=== PATIENT | female | born 1940 | race Caucasian/White ===

== ENCOUNTER 2020-09-28 00:26 | Outpatient (REF) | payer MEDICARE, MEDICAID, SELFPAY | END 2020-09-28 00:27 | disposition home or self-care (01) | LOC: HO.LHD 00:26 | PROVIDERS: Visit Provider Nurse Practitioner Family | DX: Z13.89 Encounter for screening for other disorder (principal) ==

== ENCOUNTER 2020-09-29 06:46 | Outpatient (REF) | payer MEDICARE, MEDICAID, SELFPAY ==
[2020-09-29 11:33] LABS: Alanine Aminotransferase 7 U/L (0-31); Albumin Level 3.9 g/dL (3.5-5.0); Alkaline Phosphatase 67 U/L (39-117); Anion Gap 15 (12-20); Aspartate Amino Transferase 14 U/L (5-31); Bilirubin Total 0.5 mg/dL (0.0-1.0); Blood Urea Nitrogen 17 mg/dL (9-16); Calcium 9.7 mg/dL (8.4-10.2); Carbon Dioxide 24 mmol/L (22-29); Chloride 108 mmol/L (96-108); Cholesterol 185 mg/dL; Estimated Glomerular Filt Rate > 60; Glucose Fasting 101 mg/dL (60-99); HDL Cholesterol 77 mg/dL; LDL Cholesterol Calculated 99 mg/dl; Potassium 5.1 mmol/L (3.3-5.1); Sodium 142 mmol/L (135-145); Total Protein 6.6 g/dL (6.5-8.0); Triglycerides 45 mg/dL
[2020-09-29 11:55] LABS: TSH reflex Free T4 0.72 uIU/mL (0.32-4.0)
== END 2020-09-29 06:47 | disposition home or self-care (01) ==
LOC: HO.LHD 06:46
PROVIDERS: Visit Provider Nurse Practitioner Family
DX: F41.9 Anxiety disorder, unspecified (principal)
CPT/HCPCS: 36415; 80053; 80061; 84443

== ENCOUNTER 2021-01-24 08:21 | Outpatient (REF) | payer MEDICARE, MEDICAID, SELFPAY ==
--- NOTE | ~2021-01-24 | XR_ITS ---
EXAMINATION: XR ANKLE, LEFT XR TIBIA FIBULAR, LEFT XR FEMUR, LEFT XR HIP, LEFT CLINICAL INFORMATION: Pain in left lower extremity. COMPARISON: None TECHNIQUE: Left ankle 3 views, left tibia and fibula 2 views, left femur 4 views and left hip 2 views. FINDINGS: LEFT ANKLE: There is diffuse osteopenia. No visible acute fracture, dislocation seen. The ankle mortise and subtalar joints are normal. There is a small calcaneal heel enthesophyte. LEFT TIBIA AND FIBULA: There is no visible acute fracture or bony abnormality. No bony erosive changes. No periosteal elevation. The soft tissues are normal. Visualized medial and lateral compartment joint space reduced but no fracture seen. LEFT FEMUR: There is no visible acute fracture or dislocation. The left hip joint space is reduced. No bony erosive changes. There is diffuse osteopenia. Mild hypertrophic changes along the left greater trochanter is noted. LEFT HIP: There is minimal loss of left hip joint space. No bony erosive changes. No loose bodies. No joint effusion. XR/XR ankle LT min 3V IMPRESSION: Mild diffuse osteopenia left ankle, left femur and tibia and fibula. No visible acute fracture, dislocation or subluxation seen. No bony erosive changes. 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 No fracture or dislocation seen in the left femur or the left tibia-fibula.
--- NOTE | ~2021-01-24 | XR_ITS ---
EXAMINATION: XR ANKLE, LEFT XR TIBIA FIBULAR, LEFT XR FEMUR, LEFT XR HIP, LEFT CLINICAL INFORMATION: Pain in left lower extremity. COMPARISON: None TECHNIQUE: Left ankle 3 views, left tibia and fibula 2 views, left femur 4 views and left hip 2 views. FINDINGS: LEFT ANKLE: There is diffuse osteopenia. No visible acute fracture, dislocation seen. The ankle mortise and subtalar joints are normal. There is a small calcaneal heel enthesophyte. LEFT TIBIA AND FIBULA: There is no visible acute fracture or bony abnormality. No bony erosive changes. No periosteal elevation. The soft tissues are normal. Visualized medial and lateral compartment joint space reduced but no fracture seen. LEFT FEMUR: There is no visible acute fracture or dislocation. The left hip joint space is reduced. No bony erosive changes. There is diffuse osteopenia. Mild hypertrophic changes along the left greater trochanter is noted. LEFT HIP: There is minimal loss of left hip joint space. No bony erosive changes. No loose bodies. No joint effusion. XR/XR tibia fibula LT 2V IMPRESSION: Mild diffuse osteopenia left ankle, left femur and tibia and fibula. No visible acute fracture, dislocation or subluxation seen. No bony erosive changes. 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 No fracture or dislocation seen in the left femur or the left tibia-fibula.
--- NOTE | ~2021-01-24 | XR_ITS ---
EXAMINATION: XR ANKLE, LEFT XR TIBIA FIBULAR, LEFT XR FEMUR, LEFT XR HIP, LEFT CLINICAL INFORMATION: Pain in left lower extremity. COMPARISON: None TECHNIQUE: Left ankle 3 views, left tibia and fibula 2 views, left femur 4 views and left hip 2 views. FINDINGS: LEFT ANKLE: There is diffuse osteopenia. No visible acute fracture, dislocation seen. The ankle mortise and subtalar joints are normal. There is a small calcaneal heel enthesophyte. LEFT TIBIA AND FIBULA: There is no visible acute fracture or bony abnormality. No bony erosive changes. No periosteal elevation. The soft tissues are normal. Visualized medial and lateral compartment joint space reduced but no fracture seen. LEFT FEMUR: There is no visible acute fracture or dislocation. The left hip joint space is reduced. No bony erosive changes. There is diffuse osteopenia. Mild hypertrophic changes along the left greater trochanter is noted. LEFT HIP: There is minimal loss of left hip joint space. No bony erosive changes. No loose bodies. No joint effusion. XR/XR hip LT min 2V IMPRESSION: Mild diffuse osteopenia left ankle, left femur and tibia and fibula. No visible acute fracture, dislocation or subluxation seen. No bony erosive changes. 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 No fracture or dislocation seen in the left femur or the left tibia-fibula.
--- NOTE | ~2021-01-24 | XR_ITS ---
EXAMINATION: XR ANKLE, LEFT XR TIBIA FIBULAR, LEFT XR FEMUR, LEFT XR HIP, LEFT CLINICAL INFORMATION: Pain in left lower extremity. COMPARISON: None TECHNIQUE: Left ankle 3 views, left tibia and fibula 2 views, left femur 4 views and left hip 2 views. FINDINGS: LEFT ANKLE: There is diffuse osteopenia. No visible acute fracture, dislocation seen. The ankle mortise and subtalar joints are normal. There is a small calcaneal heel enthesophyte. LEFT TIBIA AND FIBULA: There is no visible acute fracture or bony abnormality. No bony erosive changes. No periosteal elevation. The soft tissues are normal. Visualized medial and lateral compartment joint space reduced but no fracture seen. LEFT FEMUR: There is no visible acute fracture or dislocation. The left hip joint space is reduced. No bony erosive changes. There is diffuse osteopenia. Mild hypertrophic changes along the left greater trochanter is noted. LEFT HIP: There is minimal loss of left hip joint space. No bony erosive changes. No loose bodies. No joint effusion. XR/XR femur LT 2V IMPRESSION: Mild diffuse osteopenia left ankle, left femur and tibia and fibula. No visible acute fracture, dislocation or subluxation seen. No bony erosive changes. 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 No fracture or dislocation seen in the left femur or the left tibia-fibula.
== END 2021-01-24 08:22 | disposition home or self-care (01) ==
LOC: HO.HMGCX 08:21
PROVIDERS: PCP Nurse Practitioner Family; Visit Provider Nurse Practitioner Family
DX: Z13.89 Encounter for screening for other disorder (principal)
CPT/HCPCS: 73502; 73552; 73590; 73610

== ENCOUNTER 2021-07-11 06:49 | Outpatient (REF) | payer MEDICARE, MEDICAID, SELFPAY ==
[2021-07-11 13:21] LABS: Appearance Urine CLEAR; Color Urine YELLOW; Glucose Urine UA NEG (NEG); Leukocyte Esterase Urine 2+ (NEG); Nitrite Urine NEG (NEG); UACC Culture Trigger YES; Urine Blood NEG (NEG); Urine Ketones NEG (NEG); Urine Protein NEG (NEG-TRACE)
[2021-07-11 13:31] LABS: Bacteria Urine TRACE /LPF; RBC Urine 0-2 /HPF (0); Squamous Epithelial Cell Urine 2+ /LPF
[2021-07-11 14:10] LABS: Alanine Aminotransferase 9 U/L (0-31); Albumin Level 4.1 g/dL (3.5-5.0); Alkaline Phosphatase 75 U/L (39-117); Anion Gap 9 (12-20); Aspartate Amino Transferase 15 U/L (5-31); Bilirubin Total 0.4 mg/dL (0.0-1.0); Carbon Dioxide 31 mmol/L (22-29); Chloride 104 mmol/L (96-108); Cholesterol 186 mg/dL; Estimated Glomerular Filt Rate > 60; Glucose Fasting 85 mg/dL (60-99); HDL Cholesterol 75 mg/dL; LDL Cholesterol Calculated 94 mg/dl; Potassium 4.7 mmol/L (3.3-5.1); Sodium 139 mmol/L (135-145); Total Protein 6.8 g/dL (6.5-8.0); Triglycerides 87 mg/dL
[2021-07-11 14:14] LABS: TSH reflex Free T4 1.21 uIU/mL (0.32-4.0)
[2021-07-11 15:16] LABS: Blood Urea Nitrogen 18 mg/dL (9-16); Calcium 10.2 mg/dL (8.4-10.2)
== END 2021-07-11 06:50 | disposition home or self-care (01) ==
LOC: HO.LHD 06:49
PROVIDERS: Visit Provider Nurse Practitioner Family
DX: F41.9 Anxiety disorder, unspecified (principal)
CPT/HCPCS: 36415; 80053; 80061; 81001; 84443; 87086

== ENCOUNTER 2022-06-11 05:51 | Outpatient (REF) | payer MEDICARE, MEDICAID, SELFPAY | END 2022-06-11 05:52 | disposition home or self-care (01) | LOC: HO.LHD 05:51 | PROVIDERS: Visit Provider Nurse Practitioner Family | DX: Z13.89 Encounter for screening for other disorder (principal) ==

== ENCOUNTER 2022-06-14 07:21 | Outpatient (REF) | payer MEDICARE, MEDICAID, SELFPAY ==
[2022-06-14 11:20] LABS: MANUAL DIFF FLAG NO
[2022-06-14 11:26] LABS: Basophils Absolute Auto 0.1 X10*3/uL (0.0-0.2); Basophils Percent Auto 1.1 % (0-2); Eosinophils Absolute Auto 0.1 X10*3/uL (0.0-0.4); Eosinophils Percent Auto 0.9 % (0-4); Hematocrit 48.5 % (37.0-47.0); Hemoglobin 15.1 g/dl (12.0-16.0); Imm Gran Abs Auto 0.01 X10*3/uL (0.00-0.03); Imm Gran Pct Auto 0.1 % (0.0-0.4); Lymphocytes Absolute Auto 1.9 X10*3/uL (1.2-4.9); Lymphocytes Percent Auto 25.2 % (20-40); Mean Corpuscular HGB Conc 31.1 g/dl (31.0-35.0); Mean Corpuscular Hemoglobin 28.8 pg (27.0-33.0); Mean Corpuscular Volume 92.4 fL (80.0-98.0); Monocytes Absolute Auto 0.7 X10*3/uL (0.1-1.2); Monocytes Percent Auto 9.7 % (2-11); Neutrophils Absolute Auto 4.7 x10*3/uL (2.0-8.3); Platelet Count 306 X10*3/uL (160-400); Red Blood Count 5.25 X10*6/uL (4.20-5.50); Red Cell Distribution Width 13.7 % (11.0-16.0); White Blood Count 7.4 X10*3/uL (4.8-10.8)
[2022-06-14 12:36] LABS: Alanine Aminotransferase 11 U/L (0-31); Albumin Level 4.1 g/dL (3.5-5.0); Alkaline Phosphatase 76 U/L (39-117); Anion Gap 14 (12-20); Aspartate Amino Transferase 16 U/L (5-31); Bilirubin Total 0.4 mg/dL (0.0-1.0); Blood Urea Nitrogen 16 mg/dL (9-16); Calcium 9.8 mg/dL (8.4-10.2); Carbon Dioxide 29 mmol/L (22-29); Chloride 103 mmol/L (96-108); Cholesterol 184 mg/dL; Estimated Glomerular Filt Rate > 60; Glucose Fasting 96 mg/dL (60-99); HDL Cholesterol 84 mg/dL; LDL Cholesterol Calculated 85 mg/dl; Potassium 4.7 mmol/L (3.3-5.1); Sodium 141 mmol/L (135-145); Total Protein 6.9 g/dL (6.5-8.0); Triglycerides 75 mg/dL
[2022-06-14 12:56] LABS: Vitamin D 25-OH Total 16.6 ng/mL (>30)
== END 2022-06-14 07:22 | disposition home or self-care (01) ==
LOC: HO.LHD 07:21
PROVIDERS: Visit Provider Nurse Practitioner Family
DX: Z00.00 Encounter for general adult medical examination without abnormal findings (principal); Z78.0 Asymptomatic menopausal state
CPT/HCPCS: 36415; 80053; 80061; 82306; 84443; 85025

== ENCOUNTER 2022-12-12 13:42 | Emergency (ER) | payer MEDICARE, MEDICAID, SELFPAY ==
--- NOTE | ~2022-12-12 | US_ITS ---
EXAMINATION: US VENOUS ULTRASOUND WITH DOPPLER LOWER EXTREMITY, BILATERAL CLINICAL INFORMATION: Bilateral lower extremity edema and swelling COMPARISON: None available. TECHNIQUE: Ultrasound of the deep veins is performed from the hip to the calf with compression sonography and color and pulse Doppler assessment. Spectral analysis with color-flow imaging is performed. FINDINGS: RIGHT: There is normal venous compression and respiratory variation and augmented flow. The visualized common femoral vein, superficial femoral vein, profunda femoral vein, popliteal vein, and the trifurcation region shows no evidence of deep venous thrombosis. The peroneal veins were not seen. There is no significant popliteal fossa cyst. LEFT: There is normal venous compression and respiratory variation and augmented flow. The visualized common femoral vein, superficial femoral vein, profunda femoral vein, popliteal vein, and the trifurcation region shows no evidence of deep venous thrombosis. The peroneal veins were not seen. There is no significant popliteal fossa cyst. If the patient's symptoms persist, followup ultrasound in 5 days 7 days might be of value to exclude proximal propagation from a non-visualized calf vein. US/US venous duplex LE BI IMPRESSION: No DVT demonstrated in either lower extremity.
[2022-12-12 13:57] VITALS: BP 144/82; BP 151/71; PULSE 73; PULSE 76; RESP 16; TEMP 36.8; O2SAT 95; O2SAT 96; BMI 26.2
--- NOTE | 2022-12-12 14:14 | PC.NURSE ---
pt a&ox3, vss, pt coming in due to bilateral vascular issue in her LE, 3+ edema noted lower extremities, CMS intact, warm to the touch, pt has 8/10 pain/tenderness to both extremities.
--- NOTE | 2022-12-12 14:46 | ED.GENADULT ---
HPI - General Adult General Chief complaint: Extremity Injury, Lower Stated complaint: Swelling back R knee Time Seen by Provider: 12/12/22 14:33 Source: patient Mode of arrival: EMS Limitations: no limitations History of Present Illness HPI narrative: 82 years old female presented to the emergency department complaining of lower extremity pain, the pain is been ongoing for month. Patient does have a history of venous stasis dermatitis as documented by a primary care physician on 05/23/2022. She denies any fever chills vomiting. She reports she has been having difficult to ambulate around Onset (ago): week(s) (4) Location: lower extremity Radiation: non-radiation Severity: moderate Quality: burning Pain Consistency: constant Relieving factors: none Exacerbating factors: none Associated symptoms: denies other symptoms Related Data Home Medications Medication Instructions Recorded Confirmed No Known Home Meds 05/22/21 05/28/22 Allergies Allergy/AdvReac Type Severity Reaction Status Date / Time ciprofloxacin [From CIPRO] Allergy Intermediate SHORTNESS Verified 12/12/22 13:56 OF BREATH metronidazole [From FLAGYL] Allergy Intermediate SHORTNESS Verified 12/12/22 13:56 OF BREATH aspirin [ASPIRIN] Allergy Unknown CAN'T TAKE Verified 12/12/22 13:56 BECAUSE OF BLEEDING, gi bleed, gi bleeding latex [LATEX] Allergy Unknown DIFFICULTY Verified 12/12/22 13:56 BREATHING tramadol [From ULTRAM] Allergy Unknown DIZZINESS Verified 12/12/22 13:56 Latex Allergy Unknown Unknown Uncoded 12/12/22 13:56 Latex Gloves Allergy Unknown rash Uncoded 12/12/22 13:56 Review of Systems Constitutional: Constitutional: Reports no additional constitutional complaints Cardiovascular: Cardiovascular: Reports no additional cardiovascular complaints Neurologic: Reports system reviewed and no additional complaints, except as documented PMFSH Past Medical History Attestation statement: The following information was validated with the patient. Medical History Anxiety GERD (gastroesophageal reflux disease) Tobacco use Venous stasis dermatitis White coat syndrome with high blood pressure but without hypertension Social History Social History Housing: Apartment Alcohol intake: never Patient Tobacco Use Status: Current everyday Tobacco user Cigarette Packs Per Day: 1 Cigarettes Per Day: 10 Years Smoked: 20 yrs Smoked in Last 30 Days: Yes e-Cigarette/Vaping Use: Never Used Second Hand Smoke Exposure: No Use of substances other than those prescribed or required for medical reasons: No Advance Directives: Yes Advance Directives on File: Yes Advance Directives Date on File: 10/03/20 service: No Current occupational status: retired Cognitive needs: No Hearing needs: No Vision needs: No Physical Exam ED Vital Signs: Vital Signs - 24 hr 12/12/22 13:57 12/12/22 16:11 12/12/22 18:09 Temperature 98.2 F 97.9 F 98.0 F Pulse Rate 73 73 71 Respiratory Rate 16 16 16 Blood Pressure 151/71 H 150/69 H 167/78 H Pulse Oximetry 96 96 99 Oxygen Delivery Method Room Air Room Air BMI result Body Mass Index 26.2 Const General: cooperative Nutritional Appearance: well nourished Orientation/consciousness: patient oriented x3 Limitations: no limitations HENMT Head: Yes normal to inspection Face and sinus: Yes normal facial exam Neck Neck: Yes normal visual inspection Chest Chest palpation & inspection: normal inspection of the chest Resp Effort & Inspection: normal respiratory effort Auscultation: clear to auscultation bilaterally Cardio Jugular venous distension: no JVD Rate: regular rate Rhythm: regular rhythm GI Inspection: Yes normal to inspection Palpation (GI): Soft to palpation, not firm, nontender and no guarding Neuro General: patient oriented x3 Cranial nerves: Yes CN's II-XII intact bilaterally Extrem Other: Examination lower extremity shows venous stasis dermatitis, I was able to palpate the pulses in the feet by hand also by doppler pulses present Course Reevaluation(s) Reevaluation #1: pt failed PT,she is Rehab bed search Time: 16:13 Reevaluation #2: pt will be signed out to the incoming attending Dr Montalvo Time: 19:18 Medications Administered Discontinued Medications Generic Name Dose Route Start Last Admin Trade Name Freq PRN Reason Stop Dose Admin Acetaminophen 975 mg 12/12/22 14:45 12/12/22 15:11 Acetaminophen 325 Mg Tablet PO 12/12/22 14:46 Not Given ONCE ONE Medical Decision Making Medical Decision Making MDM Narrative: Patient presented with leg pain distal the most likely has venous stasis dermatitis, differential diagnosis cellulitis, DVT, We get an ultrasound labs reassess Differential Diagnosis Differential Diagnoses: The differential diagnosis associated with the presentation includes DVT/cellulitis/vascular insufficiency (However she has pulses) Lab Data 12/12/22 14:54 12/12/22 14:54 Labs: Lab Results 12/12/22 12/12/22 12/12/22 Range/Units 14:54 14:54 15:18 WBC 6.8 (4.8-10.8) X10*3/uL RBC 4.60 (4.20-5.50) X10*6/uL Hgb 13.5 (12.0-16.0) g/dl Hct 43.0 (37.0-47.0) % MCV 93.5 (80.0-98.0) fL MCH 29.3 (27.0-33.0) pg MCHC 31.4 (31.0-35.0) g/dl RDW 14.2 (11.0-16.0) % Plt Count 287 (160-400) X10*3/uL MPV 9.4 (9.4-12.3) fL Immature Gran % (Auto) 0.1 (0.0-0.4) % Neut % (Auto) 62.6 (45-73) % Lymph % (Auto) 25.5 (20-40) % Ingham % (Auto) 9.5 (2-11) % Eos % (Auto) 1.3 (0-4) % Baso % (Auto) 1.0 (0-2) % Lymph # (Auto) 1.7 (1.2-4.9) X10*3/uL Ingham # (Auto) 0.7 (0.1-1.2) X10*3/uL Eos # (Auto) 0.1 (0.0-0.4) X10*3/uL Baso # (Auto) 0.1 (0.0-0.2) X10*3/uL Abs Immat Gran (auto) 0.01 (0.00-0.03) X10*3/uL Absolute Neuts (auto) 4.3 (2.0-8.3) x10*3/uL Absolute Nucleated RBC 0.000 (0.0-0.012) X10*3/uL Nucleated RBC % (auto) 0.0 (0.0-0.2) /100WBC Sodium 143 (135-145) mmol/L Potassium 4.8 (3.3-5.1) mmol/L Chloride 107 (96-108) mmol/L Carbon Dioxide 30 H (22-29) mmol/L Anion Gap 11 L (12-20) BUN 15 (9-16) mg/dL Creatinine 0.67 (0.5-1.4) mg/dL Estim Creat Clear Calc 68.7 Estimated GFR > 60 Random Glucose 98 (60-115) mg/dL Calcium 10.2 (8.4-10.2) mg/dL Total Bilirubin 0.4 (0.0-1.0) mg/dL AST 13 (5-31) U/L ALT 8 (0-31) U/L Alkaline Phosphatase 76 (39-117) U/L Total Protein 6.3 L (6.5-8.0) g/dL Albumin 3.6 (3.5-5.0) g/dL COVID-19 (ISD) Negative (Negative) COVID-19 Clin Com See Note Discharge Plan Discharge Clinical Impression: Bilateral leg pain Patient Disposition: Still a Patient Prescriptions: No Action No Known Home Meds
[2022-12-12 14:58] LABS: MANUAL DIFF FLAG NO
[2022-12-12 15:07] LABS: Basophils Absolute Auto 0.1 X10*3/uL (0.0-0.2); Eosinophils Absolute Auto 0.1 X10*3/uL (0.0-0.4); Eosinophils Percent Auto 1.3 % (0-4); Hemoglobin 13.5 g/dl (12.0-16.0); Imm Gran Abs Auto 0.01 X10*3/uL (0.00-0.03); Imm Gran Pct Auto 0.1 % (0.0-0.4); Lymphocytes Absolute Auto 1.7 X10*3/uL (1.2-4.9); Lymphocytes Percent Auto 25.5 % (20-40); Mean Corpuscular HGB Conc 31.4 g/dl (31.0-35.0); Mean Corpuscular Hemoglobin 29.3 pg (27.0-33.0); Mean Corpuscular Volume 93.5 fL (80.0-98.0); Mean Platelet Volume 9.4 fL (9.4-12.3); Monocytes Absolute Auto 0.7 X10*3/uL (0.1-1.2); Monocytes Percent Auto 9.5 % (2-11); Neutrophils Absolute Auto 4.3 x10*3/uL (2.0-8.3); Neutrophils Percent Auto 62.6 % (45-73); Platelet Count 287 X10*3/uL (160-400); Red Cell Distribution Width 14.2 % (11.0-16.0); White Blood Count 6.8 X10*3/uL (4.8-10.8)
[2022-12-12 15:14] LABS: Alanine Aminotransferase 8 U/L (0-31); Albumin Level 3.6 g/dL (3.5-5.0); Alkaline Phosphatase 76 U/L (39-117); Anion Gap 11 (12-20); Aspartate Amino Transferase 13 U/L (5-31); Bilirubin Total 0.4 mg/dL (0.0-1.0); Blood Urea Nitrogen 15 mg/dL (9-16); Calcium 10.2 mg/dL (8.4-10.2); Carbon Dioxide 30 mmol/L (22-29); Chloride 107 mmol/L (96-108); Creatinine Clr Calc Pharmacy 68.7; Estimated Glomerular Filt Rate > 60; Glucose Random 98 mg/dL (60-115); Potassium 4.8 mmol/L (3.3-5.1); Sodium 143 mmol/L (135-145); Total Protein 6.3 g/dL (6.5-8.0)
[2022-12-12 16:00] LABS: COVID-19 Test Negative (Negative); IDNOW Serial# 9DB6401D
--- NOTE | 2022-12-12 16:08 | PC.NURSE ---
pt a&ox3, pt refused to take tylenol because she does not like the way that it makes her feel - she says that it does something to her eyes and she doesn't like the feeling of it. pt is requesting other pain medication, i asked her what she takes at home if she's in pain with anything - pt states she does not like taking medication.
[2022-12-12 16:11] VITALS: BP 150/69; PULSE 73; RESP 16; TEMP 36.6; O2SAT 96
[2022-12-12 18:09] VITALS: BP 167/78; PULSE 71; RESP 16; TEMP 36.7; O2SAT 99
[2022-12-12 20:00] VITALS: BP 160/64; PULSE 72; RESP 16; TEMP 36.5; O2SAT 96
--- NOTE | 2022-12-12 20:10 | PHA.MEDREC ---
Pharmacy Consult ? Medication Reconciliation Pharmacy has completed the medication reconciliation. Spoke to patient to confirm meds. Patient takes no meds.
[2022-12-12] MEDS: oxyCODONE HCl Immed Release 5 MG TABLET PO (21:26)
--- NOTE | 2022-12-12 23:04 | MHC.CM.ED ---
CM met with patient at the request of Dr. Taylor. Pt with increasing weakness and leg pain. Work-up negative. PT recommends STR. Patient and daughter agreeable. Pt lives alone in [facility]. Has Cane and furniture walks . States apartment too small for walker. Active with [facility]. HHC 4 hours on Friday and Friday. J&J and booster. Pt takes no medications. HCP at Home. HCP/daughter Natividad Joshua ([phone]). Daughter will bring in a copy. Care Port given for local facilities. Patient and daughter have no requests. Plan: STR. Will await bed offers and review tomorrow with patient and daughter. They will review with [facility] hand out and make a decision Pt has Medicare/[employer]. CM will follow for discharge planning needs.
[2022-12-13 06:00] VITALS: BP 170/78; PULSE 74; RESP 18; TEMP 36.3; O2SAT 94
[2022-12-13] MEDS: oxyCODONE HCl Immed Release 5 MG TABLET PO ×3 (06:21→23:36)
--- NOTE | 2022-12-13 11:43 | MHC.CM.ED ---
Met with pt to review SNF search: pt accepted to [facility] and [facility]. Pt requesting [facility] however, they do not have bed availability. Pt declining [facility] and states she needs to wait for her dtr to come in after work to discuss [facility]. Informed pt that SNF availability is quite tight and will become more so on a Friday. Pt states she is overwhelmed, frustrated and tired. She states she doesn't want to transfer to a facility that is infested with roaches and degenerates Pt requesting to sleep until her dtr arrives after 4pm. She states she will make a decision at that time if she feels up to a decision STR referrals made with some offers pending. ED CM to follow for d/c planning needs.
[2022-12-13 15:38] VITALS: BP 136/63; PULSE 73; RESP 16; TEMP 36.7; O2SAT 96
--- NOTE | 2022-12-13 19:16 | MHC.CM.ED ---
Addendum entered by Eun Bush 12/13/22 19:18: 7/15, as they need medicaid leveling. Will discuss via [facility] in the morning for transport time. Daughter requests to be called with transport time. Daughter works in [place]. Original Note: CM met with patient and her daughter/HCP Natividad Tres. Reviewed bed offers. Pt accepts [facility]. Facility aware. Request that pt be transported
[2022-12-13 22:18] VITALS: BP 160/72; PULSE 73; RESP 17; TEMP 36.7; O2SAT 94
--- NOTE | 2022-12-13 23:37 | PC.NURSE ---
patient in bed with complaints of having low extremity pain patient vitals are being monitored patient was given a prn patient stated the pain was 10/10 patient will continue to be reassessed in 30 minutes patent will continue to be monitored for safety
[2022-12-14 00:57] VITALS: BP 147/72; PULSE 72; RESP 17; TEMP 36.6; O2SAT 94
[2022-12-14 05:53] VITALS: BP 187/87; PULSE 74; RESP 17; TEMP 36.7; O2SAT 95
[2022-12-14] MEDS: oxyCODONE HCl Immed Release 5 MG TABLET PO ×2 (10:09→20:04)
--- NOTE | 2022-12-14 13:26 | MHC.CM.ED ---
Patient remains in ER overflow. MDS completed. Faxed to [facility]. Also sent to [facility]. It is unlikely patient will be able to transfer to [facility] before Friday. Attempted to notify patient. Patient currently sleeping. Spoke with patient's daughter, Natividad, via telephone. Natividad verbalizes understanding. Continue to monitor for d/c needs.
[2022-12-14 14:00] VITALS: BP 151/70; PULSE 72; RESP 16; TEMP 36.2; O2SAT 96
--- NOTE | 2022-12-14 14:35 | PC.NURSE ---
pt 1 assist with very minimal support to bedside commode, assisted back into bed after urination.
[2022-12-14 15:46] VITALS: BP 168/77; PULSE 72; RESP 18; TEMP 36.9; O2SAT 94
--- NOTE | 2022-12-14 18:26 | PC.NURSE ---
Pt awaiting placement at [facility] in [facility]. A/Ox3. Able to stand pivot to commode. Daughter in to visit this evening.
[2022-12-14 19:45] VITALS: BP 166/77; PULSE 75; RESP 18; TEMP 36.9; O2SAT 95
--- NOTE | 2022-12-14 19:46 | MHC.EDTECH ---
This tech assumed care of pt at 1900 pt was a 1 assist to commode pt urinated pt was cleaned and placed back into bed. vitals where taken and call cuevas within reach.
--- NOTE | 2022-12-14 19:47 | PC.NURSE ---
patient in bed with eyes open patient stated she is in pain 01/09 patient will be medicated and patient will continue to be monitored for safety
--- NOTE | 2022-12-14 22:53 | MHC.EDTECH ---
This tech assisted pt to commode with minimal assistance pt urinated small amount pt is back into bed and is resting comfortably call cuevas within reach.
--- NOTE | 2022-12-15 00:57 | PC.NURSE ---
patient in bed with eyes closed patient showing no distress at this time patient will continue to be monitored for safety.
--- NOTE | 2022-12-15 02:05 | MHC.EDTECH ---
Patient rang call cuevas to use commode,pt urinated and is back in bed. Call cuevas within reach of
--- NOTE | 2022-12-15 02:17 | MHC.EDTECH ---
Patient made me aware she was having some pain,This tech made RN aware.
--- NOTE | 2022-12-15 04:02 | PC.NURSE ---
Patient up on the bedside commode with no issues patient have no signs of distress at this time patient will continue to be monitored for safety
[2022-12-15 04:11] VITALS: BP 177/80; PULSE 75; RESP 18; TEMP 36.9; O2SAT 97
--- NOTE | 2022-12-15 04:16 | MHC.EDTECH ---
Patient rang for assistance to commode,patient is able to get to commode with minimal help. Patient urinated and vitals were taken blood pressure was elevated at 177/80 RN was made aware
[2022-12-15 06:02] VITALS: BP 170/80; PULSE 75; RESP 18; TEMP 36.5; O2SAT 92
--- NOTE | 2022-12-15 06:21 | MHC.EDTECH ---
Patient rang to use commode,patient got up by herself without difficulty,patient urinated and a steph-pad was giving to patient.
--- NOTE | 2022-12-15 07:10 | PC.NURSE ---
resumed care of patient, she is currently resting, all personal items within reach, call cuevas within reach at this time. Will continue to maintain safety measures
[2022-12-15] MEDS: oxyCODONE HCl Immed Release 5 MG TABLET PO ×2 (07:21→16:13)
--- NOTE | 2022-12-15 10:43 | PC.NURSE ---
Kitchen staff requested to bedside to discuss meal options with patient as she did not like any of the options for breakfast, and is very sensitive to what she wants to eat. Kitchen at bedside, to place lunch and dinner order to what patient would like.
--- NOTE | 2022-12-15 13:37 | PC.NURSE ---
Pt refused shower from staff at this time. Pt reports she will wash herself up later in bed.
[2022-12-15 15:57] VITALS: BP 174/78; PULSE 75; RESP 16; TEMP 36.5; O2SAT 97
--- NOTE | 2022-12-15 16:03 | MHC.EDTECH ---
THIS PCT ASSUMED CARE OF PATIENT AT 1530 ,VITALS SIGN TAKEN ,PT USE BED SIDE COMMODE ,HAD LARGE FIRM BOWEL MOVEMENT ,AND VOID ,THEN BACK TO BED .
--- NOTE | 2022-12-15 17:12 | MHC.EDTECH ---
PATIENT ATE 100 % OF DINNER ,DRANK 240 ML WATER .
[2022-12-15 20:00] VITALS: BP 138/70; PULSE 73; RESP 16; TEMP 37.1; O2SAT 97
[2022-12-16 05:55] VITALS: BP 174/83; PULSE 75; RESP 16; TEMP 36.2; O2SAT 96
--- NOTE | 2022-12-16 06:14 | MHC.EDTECH ---
0600 ROUNDING DONE ,VITALS SIGN TAKEN ,PT UP 3 TIMES TO USE BEDSIDE COMMODE ,PATIENT REFUSED WATER THIS MORNING .
[2022-12-16] MEDS: oxyCODONE HCl Immed Release 5 MG TABLET PO ×2 (07:35→14:32)
--- NOTE | 2022-12-16 07:40 | PC.NURSE ---
PT IS A/O X 4, NO SOB/VALERY NOTED SPEAKS IN FULL SENTENCES. LUNGS - CTA. HEART SOUND IRREGULAR. ABD SOFT AND NON-TENDER. GIOVANNA LOWER LEGS PEDRO, NO EDEMA NOTED. PT C/O 10/10 GEN BODY PAIN. MED X 1 WITH OXYCODONE. PT AWARE OF PLAN OF CARE.
[2022-12-16 07:50] VITALS: BP 144/73; PULSE 75; RESP 20; TEMP 36.2; O2SAT 96
--- NOTE | 2022-12-16 12:47 | MHC.CM.ED ---
Addendum entered by Marissa Pritchett 12/16/22 13:40: [facility] has received the approval from [facility]. Johnson MATTA booked for 530pm. Med [facility] with chart. Patient, daughter NatividadShakira RN and Sarah THAKUR aware. Original Note: Patient remains in ER overflow. [facility] PASRR Level 1 and ER d/c sent to Jennifer at [facility]. Per Jennifer, they will sent approval letter to [facility]. Facility made aware. Trying to arrange a transport time. Continue to monitor for d/c needs.
[2022-12-16 14:00] VITALS: BP 145/69; PULSE 71; RESP 20; TEMP 36.4; O2SAT 95
--- NOTE | 2022-12-16 14:42 | PC.NURSE ---
PT IS AWARE OF PLAN OF CARE FOR TRANSFER TO [facility] AT 1730 TODAY VIA AMBULANCE
--- NOTE | 2022-12-16 16:03 | PC.NURSE ---
RN TO RN REPORT GIVEN TO RADHA AT ([facility]. [phone]). PT STATES THAT SHE HAD A BM THIS AM. PT IS AWARE OF PLAN OF CARE.
[2022-12-16 17:30] VITALS: BP 146/67; PULSE 76; RESP 20; TEMP 36.4; O2SAT 97
--- NOTE | 2022-12-16 17:45 | PC.NURSE ---
RN REPORT GIVEN TO EMS. PT IS BEING TRANSFERRED TO [facility]. PT IS AWARE OF PLAN OF CARE.
== END 2022-12-16 17:50 ==
PROVIDERS: Emergency Provider Emergency Medicine; PCP Nurse Practitioner Family
DX: M79.604 Pain in right leg (principal); M79.605 Pain in left leg; R26.2 Difficulty in walking, not elsewhere classified; Z20.822 Contact with and (suspected) exposure to COVID-19; Z20.828 Contact with and (suspected) exposure to other viral communicable diseases; Z79.899 Other long term (current) drug therapy
CPT/HCPCS: 36415; 80053; 85025; 87635; 93970; 97162; 99284; 99285

== ENCOUNTER 2023-01-02 14:50 | Outpatient (AMB) | payer MEDICARE, MEDICAID, SELFPAY ==
--- NOTE | 2023-01-02 14:51 | A.OFFPC_ITS ---
Vital Signs 01/02/23 14:53 Height 5 ft 7 in Weight 151 lb 8 oz BMI 23.7 BP 118/64 Blood Pressure Location Rt brachial Position Sitting Pulse 84 Pulse Source Pulse Oximeter Pulse Oximetry (%) 94 Oxygen Delivery Method Room Air Intake Visit Reasons: Hospital discharge f/u Allergies ciprofloxacin [From CIPRO] Allergy (Intermediate, Verified 01/02/23 17:12) SHORTNESS OF BREATH metronidazole [From FLAGYL] Allergy (Intermediate, Verified 01/02/23 17:12) SHORTNESS OF BREATH aspirin [ASPIRIN] Allergy (Unknown, Verified 01/02/23 17:12) CAN'T TAKE BECAUSE OF BLEEDING, gi bleed, gi bleeding latex [LATEX] Allergy (Unknown, Verified 01/02/23 17:12) DIFFICULTY BREATHING tramadol [From ULTRAM] Allergy (Unknown, Verified 01/02/23 17:12) DIZZINESS Latex Allergy (Unknown, Uncoded 01/02/23 17:12) Unknown Latex Gloves Allergy (Unknown, Uncoded 01/02/23 17:12) rash Medication List - Last Reconciled 01/02/23 by DENNYS Davis No Known Home Meds Tobacco use date assessed: 01/02/23 Fall risk assessment: No Falls in past year Last assessed Fall Risk: 01/02/23 Dental Screening Dental Screen Date: 01/02/23 Did you have a dental visit in the last 12 months?: No Did you have a dental problem in the last 6 months where you did not have access to dental care?: No Was dental information given to patient?: Patient has dentist HPI Hospital discharge f/u HPI Details Pt was seen in the ER on 12/12 c/o BLE pain. This was thought to be due to venous stasis dermatitis. Pt was d/c to short-term rehab. Pt does not see a vascular specialist and refuses to. Refuses gabapentin at this point, she will call me if she wants to start this. Also refuses compression stockings. Pt will follow up with a decorating supervisor. Pt is being seen by [facility] and is going to get Life Alert. Denies fever, chills, and dizziness. [facility] Medical History (Updated 01/02/23 @ 17:16 by DENNYS Davis) Anxiety GERD (gastroesophageal reflux disease) Tobacco use Venous stasis dermatitis White coat syndrome with high blood pressure but without hypertension Social History Housing: Apartment Alcohol intake: never Patient Tobacco Use Status: Current everyday Tobacco user Cigarette Packs Per Day: 1 Cigarettes Per Day: 10 Years Smoked: 20 yrs e-Cigarette/Vaping Use: Never Used Second Hand Smoke Exposure: No Advance Directives Date on File: 10/03/20 service: No Current occupational status: retired Cognitive needs: No Hearing needs: No Vision needs: No Questionnaire Thrive Questionnaire Date Thrive assessed: 05/28/22 KATEY-7 AMB Questionnaire KATEY-7 Date KATEY - 7 assessed: 05/28/22 Source: Developed by Drs. Kory Bolden, Cristina Sparks, Gregor Barnes and colleagues, with an educational glenn from [employer]. Review of Systems Const Reports as per HPI Physical exam (Primary Care) Vital Signs: Last Vital Signs Pulse 84 01/02/23 14:53 BP 118/64 01/02/23 14:53 Pulse Ox 94 01/02/23 14:53 Oxygen Delivery Method Room Air 01/02/23 14:53 BMI result Body Mass Index 23.7 Tobacco/Smoking Status: Tobacco use Status Tobacco use date assessed 01/02/23 01/02/23 15:00 Patient Tobacco Use Status Current everyday Tobacco 01/02/23 14:51 e-Cigarette/Vaping Use Never Used 01/02/23 14:51 Thrive Assessment: Date of Thrive Assessment Date Thrive assessed 05/28/22 01/02/23 14:51 Const General: cooperative Orientation/consciousness: patient oriented x3 Resp Other: fairly clear bilat Effort & Inspection: normal respiratory effort Auscultation: crackles (faint to left base) Cardio Rate: regular rate Rhythm: regular rhythm Heart sounds: S1 normal heart sound present and S2 normal heart sound present Neuro General: patient oriented x3 Extrem Other: venous stasis bilat (discoloration), trace edema bilat, + dorsalis pedis pulses, no ulcerations or open lesions, feet are dry with corns bilat Psych Appearance: grossly normal Mental Status: mental status grossly normal Speech and movement: Normal speech and movement present Affect: normal affect Attitude: cooperative Thought process: Normal thought process present Thought content: Normal thought content present Insight: Good insight present (Psych) Judgement: Good judgement present (Psych) Assessment and Plan Assessment & Plan (1) Venous stasis dermatitis: Code(s): I87.2 - Venous insufficiency (chronic) (peripheral) (2) Weakness: Code(s): R53.1 - Weakness Plan The patient agreed to the use of a forensic medical examiner for this encounter. Scribed for DENNYS Stearns by Erna Rucker forensic medical examiner, on 01/02/2023 at 15:25 EST. Coding Level of Care Code Est Pt Level 3 (74904) Diagnoses Venous stasis dermatitis I87.2 Weakness R53.1
[2023-01-02 14:53] VITALS: BP 118/64; PULSE 84; O2SAT 94; BMI 23.7
== END 2023-01-02 16:12 | disposition home or self-care (01) ==
PROVIDERS: PCP Nurse Practitioner Family; Visit Provider Nurse Practitioner Family
DX: I87.2 Venous insufficiency (chronic) (peripheral) (principal); R53.1 Weakness
CPT/HCPCS: 99213

== ENCOUNTER 2023-06-04 10:12 | Outpatient (AMB) | payer MEDICARE, MEDICAID, SELFPAY ==
--- NOTE | 2023-06-04 10:43 | MHC.PC.OV ---
Vital Signs 06/04/23 10:46 Height 5 ft 7 in Weight 158 lb 6 oz BMI 24.8 BP 120/80 Blood Pressure Location Rt brachial Position Sitting Pulse 74 Pulse Source Pulse Oximeter Pulse Oximetry (%) 98 Oxygen Delivery Method Room Air Intake Visit Reasons: Annual Physical Intake Note: Patient here for physical exam. no new issues or concerns. Allergies ciprofloxacin [From CIPRO] Allergy (Intermediate, Verified 06/04/23 10:47) SHORTNESS OF BREATH metronidazole [From FLAGYL] Allergy (Intermediate, Verified 06/04/23 10:47) SHORTNESS OF BREATH aspirin [ASPIRIN] Allergy (Unknown, Verified 06/04/23 10:47) CAN'T TAKE BECAUSE OF BLEEDING, gi bleed, gi bleeding latex [LATEX] Allergy (Unknown, Verified 06/04/23 10:47) DIFFICULTY BREATHING tramadol [From ULTRAM] Allergy (Unknown, Verified 06/04/23 10:47) DIZZINESS Latex Allergy (Unknown, Uncoded 06/04/23 10:47) Unknown Latex Gloves Allergy (Unknown, Uncoded 06/04/23 10:47) rash Medication List - Last Reconciled 06/04/23 by DENNYS Davis gabapentin 100 mg PO BID 30 days Tobacco use date assessed: 06/04/23 Fall risk assessment: No Falls in past year Last assessed Fall Risk: 06/04/23 Dental Screening Dental Screen Date: 06/04/23 Did you have a dental visit in the last 12 months?: No Did you have a dental problem in the last 6 months where you did not have access to dental care?: No Was dental information given to patient?: Patient has dentist HPI Annual Physical HPI Details pt does not go for mammos, colon screens, or bone density. Pt uses a walker. Pt refused LDCTs. 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 1. Little interest or pleasure in doing things: nearly every day 2. Feeling down, depressed, or hopeless: not at all 3. Trouble falling or staying asleep, or sleeping too much: not at all 4. Feeling tired or having little energy: not at all 5. Poor appetite or overeating: more than half the days 6. Feeling bad about yourself - or that you are a failure or have let yourself or your family down: not at all 7. Trouble concentrating on things, such as reading the newspaper or watching television: not at all 8. Moving or speaking so slowly that other people could have noticed. Or the opposite - being so fidgety or restless that you have been moving around a lot more than usual: not at all 9. Thoughts that you would be better off or of hurting yourself in some way: not at all Total score: 5 Depression Screening Interpretation: Negative Depression Screening Done: Yes 28215 - PHQ-9 Billing: Yes Source: Developed by Drs. Kory Bolden, Cristina Sparks, Gregor Barnes and colleagues, with an educational glenn from [employer]. Thrive Questionnaire Date Thrive assessed: 06/04/23 I am a: Patient What is your living situation today?: I have a steady place to live Within the past 12 months, did the food you bought not last and you didn't have the money to get more?: Never true Within the past 12 months, did you worry whether your food would run out before you got money to buy more?: Never true Do you have trouble paying for medicines?: No Do you have trouble getting transportation to medical appointments?: No Do you have trouble paying your heating and electricity bill?: No Do you have trouble taking care of your child, family member or friend?: No Do you have trouble with day-to-day activities such as bathing, preparing meals, shopping, managing finances, etc.?: Yes Are you currently unemployed and looking for a job?: No Are you interested in more education?: No Currently or been in a relationship where the following occur: no concerns reported AUDIT C Alcohol Use Questionnaire (AUDIT-C) 1. How often do you have a drink containing alcohol?: Never 3. How often do you have six or more drinks on one occasion?: Never Total Score: 0 Score Reviewed/Action Taken: No KATEY-7 AMB Questionnaire KATEY-7 Date KATEY - 7 assessed: 05/28/22 Feeling nervous, anxious, or on edge: 1 = Several days Not being able to stop or control worryin = Several days Worrying too much about different things: 1 = Several days Trouble relaxin = Not at all Being so restless that it is hard to sit still: 0 = Not at all Becoming easily annoyed or irritable: 1 = Several days Feeling afraid as if something awful might happen: 0 = Not at all Total KATEY-7 score (0-4 normal; 5-9 mild; 10-14 moderate; 15-21 severe): 4 Source: Developed by Drs. Kory Bolden, Cristina Sparks, Gregor Barnes and colleagues, with an educational glenn from [employer]. KATEY-7 Assessment Billing KATEY-7 Assessment Tool: KATEY-7 Assessment 97429 Review of Systems Const Denies chills and Denies fever(s) Eyes Denies blurry vision ENT Denies vertigo, Denies dizziness and Denies sore throat Card Denies chest pain at rest, Denies chest pain with activity, Denies diaphoresis, Denies dyspnea and Denies dyspnea on exertion Resp Denies cough, Denies dyspnea, Denies dyspnea on exertion and Denies wheezing GI Denies abdominal pain, Denies melena, Denies hematochezia, Denies constipation, Denies diarrhea and Denies loose stools Denies hematuria Musc Denies numbness and Denies tingling Skin/Breast Denies lesions Neuro Denies vertigo, Denies dizziness, Denies numbness and Denies tingling Psych Denies anxiety, Denies depression, Denies homicidal ideation, Denies suicidal ideation and Denies other (substance abuse) Aller/Immun Denies wheezing Physical exam (Primary Care) Vital Signs: Last Vital Signs Pulse 74 06/04/23 10:46 BP 120/80 06/04/23 10:46 Pulse Ox 98 06/04/23 10:46 Oxygen Delivery Method Room Air 06/04/23 10:46 BMI result Body Mass Index 24.8 Tobacco/Smoking Status: Tobacco use Status Tobacco use date assessed 06/04/23 06/04/23 10:48 Patient Tobacco Use Status Current everyday Tobacco 06/04/23 10:44 e-Cigarette/Vaping Use Never Used 06/04/23 10:44 PHQ-9: PHQ-9 Score PHQ-9: Total score 5 06/04/23 11:16 Depression Screening Interpretation: Negative Thrive Assessment: Date of Thrive Assessment Date Thrive assessed 06/04/23 06/04/23 10:54 Currently or been in a relationship where the following occur: no concerns reported Const Other: walker used, weakness noted to BLE. General: cooperative Nutritional Appearance: well nourished Orientation/consciousness: patient oriented x3 HENMT Head: Yes normal to inspection, Yes normocephalic and Yes atraumatic Ears: TM normal on the right and TM normal on the left Eyes General: appearance normal, both eyes and all related structures Alignment and Position: alignment normal and position normal Neck Neck: Yes normal visual inspection and Yes no lymphadenopathy Resp Effort & Inspection: normal respiratory effort Auscultation: clear to auscultation bilaterally and wheezes (faint scattered) Cardio Rate: regular rate Rhythm: regular rhythm Heart sounds: S1 normal heart sound present, S2 normal heart sound present and no murmurs GI Palpation (GI): Soft to palpation and nontender Auscultation: normal bowel sounds Skin Other: left posterior shoulder with circular raised skin colored lesion. Rashes: no rashes Neuro General: patient oriented x3, moves all extremities, no focal motor deficits and deep tendon reflexes 2+ bilaterally Romberg Test: Negative Extrem Right lower extremity: no edema Left lower extremity: no edema Psych Affect: normal affect Attitude: cooperative Thought process: Normal thought process present Assessment and Plan Assessment & Plan (1) Physical exam: Code(s): Z00.00 - Encounter for general adult medical examination without abnormal findings (2) Vitamin D deficiency: Code(s): E55.9 - Vitamin D deficiency, unspecified Orders: Orders Comprehensive [place]. Panel Fast Today Z00.00 - Encounter for general adult medical examination without abnormal findings TSH reflex Free T4 Today Z00.00 - Encounter for general adult medical examination without abnormal findings UA CC w/rflx Micro + Cult Today Z00.00 - Encounter for general adult medical examination without abnormal findings Complete Blood Count Auto Diff Today Z00.00 - Encounter for general adult medical examination without abnormal findings Lipid Panel Today Z00.00 - Encounter for general adult medical examination without abnormal findings Vitamin D 25-OH Total Today E55.9 - Vitamin D deficiency, unspecified Coding Level of Care Code Est Pt Prev Care >65y(26773) Diagnoses Physical exam Z00.00 Vitamin D deficiency E55.9 Additional Codes KATEY-7 Assessment Billing - KATEY-7 Assessment Tool: KATEY-7 Assessment [id number] ([id number])
[2023-06-04 10:46] VITALS: BP 120/80; PULSE 74; O2SAT 98; BMI 24.8
== END 2023-06-04 11:37 | disposition home or self-care (01) ==
PROVIDERS: Visit Provider Nurse Practitioner Family
DX: Z00.00 Encounter for general adult medical examination without abnormal findings (principal); E55.9 Vitamin D deficiency, unspecified
CPT/HCPCS: 99397

== ENCOUNTER 2023-06-27 06:52 | Outpatient (REF) | payer MEDICARE, MEDICAID, SELFPAY ==
[2023-06-27 11:34] LABS: MANUAL DIFF FLAG NO
[2023-06-27 12:00] LABS: Basophils Absolute Auto 0.1 X10*3/uL (0.0-0.2); Basophils Percent Auto 0.9 % (0-2); Eosinophils Absolute Auto 0.1 X10*3/uL (0.0-0.4); Eosinophils Percent Auto 1.4 % (0-4); Hematocrit 49.6 % (37.0-47.0); Hemoglobin 15.5 g/dl (12.0-16.0); Imm Gran Abs Auto 0.02 X10*3/uL (0.00-0.03); Imm Gran Pct Auto 0.3 % (0.0-0.4); Lymphocytes Absolute Auto 1.4 X10*3/uL (1.2-4.9); Mean Corpuscular HGB Conc 31.3 g/dl (31.0-35.0); Mean Corpuscular Hemoglobin 28.9 pg (27.0-33.0); Mean Corpuscular Volume 92.5 fL (80.0-98.0); Mean Platelet Volume 10.1 fL (9.4-12.3); Monocytes Absolute Auto 0.6 X10*3/uL (0.1-1.2); Monocytes Percent Auto 9.3 % (2-11); Neutrophils Absolute Auto 4.5 x10*3/uL (2.0-8.3); Neutrophils Percent Auto 67.1 % (45-73); Platelet Count 324 X10*3/uL (160-400); Red Blood Count 5.36 X10*6/uL (4.20-5.50); Red Cell Distribution Width 14.7 % (11.0-16.0); White Blood Count 6.7 X10*3/uL (4.8-10.8)
[2023-06-27 12:29] LABS: Alanine Aminotransferase 12 U/L (0-31); Alkaline Phosphatase 73 U/L (39-117); Anion Gap 13 (12-20); Aspartate Amino Transferase 16 U/L (5-31); Bilirubin Total 0.6 mg/dL (0.0-1.0); Blood Urea Nitrogen 21 mg/dL (9-16); Calcium 10.2 mg/dL (8.4-10.2); Carbon Dioxide 29 mmol/L (22-29); Chloride 104 mmol/L (96-108); Cholesterol 185 mg/dL (<200); Estimated Glomerular Filt Rate > 60; Glucose Fasting 151 mg/dL (60-99); HDL Cholesterol 95 mg/dL (>40); LDL Cholesterol Calculated 81 mg/dL (<100); Potassium 4.7 mmol/L (3.3-5.1); Sodium 141 mmol/L (135-145); Total Protein 7.2 g/dL (6.5-8.0); Triglycerides 46 mg/dL (<150)
[2023-06-27 12:33] LABS: TSH reflex Free T4 2.19 uIU/mL (0.32-4.0); Vitamin D 25-OH Total 16.7 ng/mL (>30)
== END 2023-06-27 06:53 | disposition home or self-care (01) ==
LOC: HO.HMGCLDS 06:52
PROVIDERS: PCP Nurse Practitioner Family; Visit Provider Nurse Practitioner Family
DX: Z00.00 Encounter for general adult medical examination without abnormal findings (principal); E55.9 Vitamin D deficiency, unspecified
CPT/HCPCS: 36415; 80053; 80061; 82306; 84443; 85025

== ENCOUNTER → 2023-08-04 23:59 | Outpatient (BNV) | payer MEDICARE, MEDICAID, SELFPAY | PROVIDERS: PCP Nurse Practitioner Family; Visit Provider Nurse Practitioner Family | DX: M13.80 Other specified arthritis, unspecified site (principal); K59.00 Constipation, unspecified | CPT/HCPCS: G0180 ==

== ENCOUNTER 2023-11-15 13:01 | Emergency (ER) | payer MEDICARE, MEDICAID, SELFPAY ==
--- NOTE | ~2023-11-15 | CT_ITS ---
EXAMINATION: CT HEAD WITHOUT CONTRAST CT CERVICAL SPINE WITHOUT CONTRAST CLINICAL INFORMATION: Fall, pain. COMPARISON: None. TECHNIQUE: Contiguous axial imaging was performed from the skull base to vertex without intravenous administration of contrast. Contiguous axial imaging was performed from the upper chest through the skull base without intravenous administration of contrast. Coronal and sagittal reformats were obtained at the acquisition workstation. This CT examination was performed using dose optimization techniques as appropriate, variously including the following: *Automated exposure control *Adjustment of mA and/or kV according to patient size (this includes techniques or standardized protocols for targeted exams where dose is matched to indication/reason for exam; i.e. extremities or head) *Use of iterative reconstruction technique DLP: 1177 mGy-cm FINDINGS: Head: There is no evidence of acute intracranial hemorrhage or edematous territorial infarction. Age indeterminate lacunar infarcts in the deep brain nuclei and right thalamus. Confluent hypoattenuation in the periventricular and deep white matter. Sanchez-white matter differentiation is preserved. Proportional prominence of the ventricles and sulcal spaces. No evidence for obstructive hydrocephalus. No abnormal mass effect or midline shift. No extra-axial fluid collections. No acute soft tissue or osseous abnormalities. Mild mucoperiosteal thickening of the paranasal sinuses. No air-fluid levels. The mastoids and middle ear cavities are clear. Cervical Spine: The atlantooccipital and atlantoaxial articulations remain well aligned. No evidence of traumatic subluxation. Mild superior endplate compression deformity at T1. Additional vertebral body heights are maintained. Moderate to severe intervertebral disc height loss at C5-C6. Mild to moderate multilevel facet/uncovertebral hypertrophy with various degrees of neural foraminal encroachment. No significant central spinal canal stenosis, although evaluation of the spinal canal is limited in the absence of intrathecal and IV contrast. There is no prevertebral soft tissue swelling. Very large, heterogeneous thyroid with an approximately 5.5 cm mass on the left side displacing the airway to the right. Remaining cervical soft tissues are normal in appearance. The lung apices demonstrate no abnormalities. CT/CT cervical spine wo IV con IMPRESSION: 1. Age-indeterminate lacunar infarcts in the deep brain nuclei and right thalamus. If indicated, consider further evaluation with an MR of the brain. 2. Extensive chronic microangiopathy and generalized cerebral volume loss. 3. No acute intracranial hemorrhage or edematous infarction. No extra-axial collections. 4. Age indeterminate mild superior endplate compression deformity at T1. 5. Moderate multilevel cervical spondylosis 6. Very large, heterogeneous thyroid with an approximately 5.5 cm mass on the left side. Recommend further evaluation with thyroid ultrasound.
--- NOTE | ~2023-11-15 | XR_ITS ---
EXAMINATION: XR CHEST CLINICAL INFORMATION: Congestion with cough COMPARISON: Chest radiograph 01/09/2018 Left shoulder 11/15/2023 TECHNIQUE: Frontal view of the chest was obtained. FINDINGS: There is some mild upper zone redistribution. Heart size is within normal limits. No interstitial edema. No pleural effusions. No infiltrates. Again seen is the mildly displaced distal left clavicular fracture noted on the 11/15/2023 shoulder radiograph XR/XR chest 1V IMPRESSION: Mild upper zone redistribution without interstitial edema.
--- NOTE | ~2023-11-15 | XR_ITS ---
EXAMINATION: XR TIBIA AND FIBULA, LEFT CLINICAL INFORMATION: Pain. COMPARISON: Prior radiographs, most recently 01/24/2021. TECHNIQUE: AP and lateral views of the left tibia and fibula were obtained. FINDINGS: Bony alignment is normal. There is generalized bony demineralization. No acute fracture, dislocation or left ankle joint effusion is seen. The joint space compartments at the knee and ankle are well-maintained. There is mild irregularity of the articular surface of the medial femoral condyle. An old, healed posterior malleolus fracture is questioned. No focal soft tissue swelling, gas or foreign body is seen. XR/XR tibia fibula LT 2V IMPRESSION: 1. No acute fracture or dislocation is seen. 2. There is mild osteoarthritic change of the medial joint space compartment of the left knee. 3. There is bony demineralization.
--- NOTE | ~2023-11-15 | XR_ITS ---
EXAMINATION: XR SHOULDER, LEFT CLINICAL INFORMATION: Fall, shoulder pain COMPARISON: Chest radiograph the 2017. TECHNIQUE: Three views of the left shoulder. FINDINGS: Osseous cortical discontinuity of the left distal clavicle, with mild, 1 cm superior translation of the distal clavicular osseous fragment. Glenohumeral joint space is well-preserved. Acromioclavicular joint is unremarkable. Coracoclavicular distance is normal. Soft tissues are unremarkable. XR/XR shoulder LT min 2V IMPRESSION: Findings suspicious for a mildly displaced left distal clavicular fracture.
--- NOTE | 2023-11-15 13:21 | ED_ITS ---
HPI - General Adult General Chief complaint: Fall Stated complaint: FAL, R SHOULDER PAIN PER EMS Time Seen by Provider: 11/15/23 13:14 Source: patient and EMS Mode of arrival: EMS Limitations: no limitations History of Present Illness ED Provider: Graciela Kumar PA-C HPI narrative: Patient is an 83 year old assigned female at with a history of anxiety and tobacco use presenting to the emergency department today with left shoulder pain after a trip and fall. Patient states that she was trying to put away some of her water bottles when she tripped and fell, landing on her left shoulder. Patient denies any loss of consciousness, dizziness, lightheadedness, abdominal pain, nausea, vomiting, fever, chills, blurry vision, double vision, loss of vision, chest pain, difficulty breathing, shortness of breath, back pain, night sweats, pain with urination, increased urinary frequency, increased urinary urgency, blood in her urine or stool, syncope or a near syncopal episode, bowel incontinence, bladder incontinence, or any other complaints at this time. Onset (ago): minute(s) Location: left and upper extremity Radiation: non-radiation Severity: mild Severity scale (1-10): 3 Quality: aching and dull Pain Consistency: constant Relieving factors: immobilization Exacerbating factors: movement Associated symptoms: denies other symptoms Treatments prior to arrival: none Related Data Previous Rx's ?Medication ?Instructions ?Recorded cholecalciferol (vitamin D3) 50 50 mcg PO DAILY #90 caps 06/27/23 mcg (2,000 unit) capsule rollator walker with seat #1 ea 07/28/23 gabapentin 100 mg capsule 100 mg PO BID 30 days #60 caps 10/30/23 Allergies Allergy/AdvReac Type Severity Reaction Status Date / Time ciprofloxacin [From CIPRO] Allergy Intermediate SHORTNESS Verified 11/15/23 13:27 OF BREATH metronidazole [From FLAGYL] Allergy Intermediate SHORTNESS Verified 11/15/23 13:27 OF BREATH aspirin [ASPIRIN] Allergy Unknown CAN'T TAKE Verified 11/15/23 13:27 BECAUSE OF BLEEDING, gi bleed, gi bleeding latex [LATEX] Allergy Unknown DIFFICULTY Verified 11/15/23 13:27 BREATHING tramadol [From ULTRAM] Allergy Unknown DIZZINESS Verified 11/15/23 13:27 Latex Allergy Unknown Unknown Uncoded 11/15/23 13:27 Latex Gloves Allergy Unknown rash Uncoded 11/15/23 13:27 Review of Systems Constitutional: Constitutional: Reports no additional constitutional complaints, Denies chills, Denies fever(s) and Denies night sweats Eyes: Eyes: Reports no additional eye complaints, Denies blurry vision, Denies change in vision, Denies diplopia, Denies eye discharge, Denies loss of vision and Denies eye pain ENT: Denies dizziness Cardiovascular: Cardiovascular: Reports no additional cardiovascular complaints, Denies chest pain, Denies lightheadedness, Denies Loss of Consciousness and Denies dyspnea Respiratory: Respiratory: Reports no additional respiratory complaints and Denies dyspnea Gastrointestinal: Gastrointestinal: Reports no additional gastrointestinal complaints, Denies abdominal pain, Denies melena, Denies hematochezia, Denies change in bowel habits and Denies change in stool character Genitourinary: Genitourinary: Denies hematuria, Denies urinary frequency, Denies dysuria, Denies urinary incontinence, Denies urinary hesitancy and Denies urinary urgency Musculoskeletal: Musculoskeletal: Reports no additional musculoskeletal complaints, Denies numbness and Denies tingling Comments: left shoulder pain Neurologic: Denies dizziness, Denies loss of vision, Denies numbness and Denies tingling Psychiatric: Psychiatric: Reports no additional psychiatric complaints Endocrine: Endocrine: Reports no additional endocrine complaints Hematologic/Lymphatic: Hematologic/Lymphatic: Reports no additional hematologic/lymphatic complaints Allergic/Immunologic: Allergic/Immunologic: Reports no additional allergi c/immunologic complaints [facility] Past Medical History Attestation statement: The following information was validated with the patient. (all information validated with the patient's daughter) Source: old records reviewed, obtained from family (patient's daughter provided additional history and confirmed the history provided by the patient) and nursing notes reviewed Medical History Arthritis Tobacco use Anxiety Venous stasis dermatitis GERD (gastroesophageal reflux disease) White coat syndrome with high blood pressure but without hypertension Social History Social History Housing: Apartment Alcohol intake: former Patient Tobacco Use Status: Current everyday Tobacco user Cigarette Packs Per Day: 1 Cigarettes Per Day: 10 Years Smoked: 20 yrs e-Cigarette/Vaping Use: Never Used Second Hand Smoke Exposure: No Use of substances other than those prescribed or required for medical reasons: No Advance Directives: Yes Advance Directives on File: Yes Advance Directives Date on File: 10/03/20 service: No Current occupational status: retired Cognitive needs: No Hearing needs: No Vision needs: No Physical Exam ED Vital Signs: Vital Signs - 24 hr 11/15/23 13:26 11/15/23 14:31 Temperature 98.4 F 98.5 F Pulse Rate 74 71 Respiratory Rate 18 18 Blood Pressure 132/61 164/84 H Pulse Oximetry 95 96 Oxygen Delivery Method Room Air Room Air BMI result Body Mass Index 29.2 Const General: cooperative, no acute distress, alert and awake Nutritional Appearance: well nourished Orientation/consciousness: patient oriented x3 Limitations: no limitations HENMT Head: Yes normal to inspection and Yes atraumatic Ears: hearing grossly normal bilaterally and external ears normal General nose exam: Normal external nose present, no nasal discharge noted and no epistaxis Face and sinus: Yes normal facial exam, No abrasion and No laceration Mouth: Normal oral and palatal mucosa present, no drooling and no muffled voice Eyes General: appearance normal, both eyes and all related structures Periorbital: periorbital findings normal Eyelids: Yes eyelids normal Conjunctivae: conjunctivae normal Pupils: Equal, round and reactive pupils present EOM: EOMs intact bilaterally Neck Neck: Yes normal visual inspection, Yes full ROM and Yes no lymphadenopathy Chest Chest palpation & inspection: normal inspection of the chest Resp Effort & Inspection: normal respiratory effort and able to speak in complete sentences GI Inspection: Yes normal to inspection Neuro General: patient oriented x3 and moves all extremities Cranial nerves: Yes Equal, round and reactive pupils present Cognition (Neuro): normal cognition Motor exam (neuro): 5/5 motor strength present throughout Sensory Exam: Normal double simultaneous stimulation for sensation Coordination: [id number] test normal Extrem Other: left shoulder pain with movement General: Yes capillary refill normal Psych Appearance: grossly normal Mental Status: mental status grossly normal Affect: normal affect Attitude: cooperative Thought process: Normal thought process present Thought content: Normal thought content present Insight: Good insight present (Psych) Procedures Orthopedic Splinting/Casting Injury #1: Side: left Upper Extremity Injury Location: clavicle Upper Extremity Immobilizer: sling/shoulder immobilizer Medical Decision Making Medical Decision Making MDM Narrative: Patient is an 83 year old assigned female at with a history of anxiety and tobacco use presenting to the emergency department today with left shoulder pain. Patient's physical exam was as noted in the physical exam portion of this note. Patient's left shoulder x-ray showed a mildly displaced left distal clavi cular fracture. Patient's head and c-spine CTs showed no acute process but did show an incidental finding of old lacunar infarcts, chronic microangiopathy, T1 compression fracture, and a very large heterogeneous thyroid with a 5.5cm mass on the left lobe. I spoke to the orthopedic team who confirmed the plan of placing the patient's left upper extremity in a sling and having her follow up outpatient. I consulted with my attending physician, Dr. Mcelroy, who confirmed the lacunar infarcts to be old and the patient does not need an MRI at this time. I explained my physical exam findings as well as all test results to the patient and the patient's daughter. I answered all questions asked by the patient and the patient's daughter. Patient's left shoulder was placed in a sling, without incident. Patient's PMS was intact prior to and after sling placement. Patient's daughter, Negrita, expressed concern about the patient going home because she uses a cane and lives alone. Patient placed in physician observation pending case management consultation. Differential Diagnosis Differential Diagnoses: The differential diagnosis associated with the presentation includes Shoulder fracture Clavicle fracture Fall Head injury Thyroid malignancy Admission/Observation Consideration of admission/observation: Escalation of care including admission/observation considered Patient would have been admitted to the hospital had her work up had any findings where hospital admission was appropriate and her clinical presentation warranted hospital admission. Consult Healthcare Provider Management of the patient was discussed with: Centrifugal Extractor Operator (spoke to the orthopedic team as noted in the MDM Rationale portion of this note) Independent Interpretation I performed an independent interpretation of an: Plain X-Ray and CT Scan Interpretation: My interpretation is in agreement with the radiologist's impression of these imaging studies. EXAMINATION: CT HEAD WITHOUT CONTRAST CT CERVICAL SPINE WITHOUT CONTRAST CLINICAL INFORMATION: Fall, pain. COMPARISON: None. TECHNIQUE: Contiguous axial imaging was performed from the skull base to vertex without intravenous administration of contrast. Contiguous axial imaging was performed from the upper chest through the skull base without intravenous administration of contrast. Coronal and sagittal reformats were obtained at the acquisition workstation. This CT examination was performed using dose optimization techniques as appropriate, variously including the following: *Automated exposure control *Adjustment of mA and/or kV according to patient size (this includes techniques or standardized protocols for targeted exams where dose is matched to indication/reason for exam; i.e. extremities or head) *Use of iterative reconstruction technique DLP: 1177 mGy-cm FINDINGS: Head: There is no evidence of acute intracranial hemorrhage or edematous territorial infarction. Age indeterminate lacunar infarcts in the deep brain nuclei and right thalamus. Confluent hypoattenuation in the periventricular and deep white matter. Sanchez-white matter differentiation is preserved. Proportional prominence of the ventricles and sulcal spaces. No evidence for obstructive hydrocephalus. No abnormal mass effect or midline shift. No extra-axial fluid collections. No acute soft tissue or osseous abnormalities. Mild mucoperiosteal thickening of the paranasal sinuses. No air-fluid levels. The mastoids and middle ear cavities are clear. Cervical Spine: The atlantooccipital and atlantoaxial articulations remain well aligned. No evidence of traumatic subluxation. Mild superior endplate compression deformity at T1. Additional vertebral body heights are maintained. Moderate to severe intervertebral disc height loss at C5-C6. Mild to moderate multilevel facet/uncovertebral hypertrophy with various degrees of neural foraminal encroachment. No significant central spinal canal stenosis, although evaluation of the spinal canal is limited in the absence of intrathecal and IV contrast. There is no prevertebral soft tissue swelling. Very large, heterogeneous thyroid with an approximately 5.5 cm mass on the left side displacing the airway to the right. Remaining cervical soft tissues are normal in appearance. The lung apices demonstrate no abnormalities. CT/CT head/brain wo IV con IMPRESSION: 1. Age-indeterminate lacunar infarcts in the deep brain nuclei and right thalamus. If indicated, consider further evaluation with an MR of the brain. 2. Extensive chronic microangiopathy and generalized cerebral volume loss. 3. No acute intracranial hemorrhage or edematous infarction. No extra-axial collections. 4. Age indeterminate mild superior endplate compression deformity at T1. 5. Moderate multilevel cervical spondylosis 6. Very large, heterogeneous thyroid with an approximately 5.5 cm mass on the left side. Recommend further evaluation with thyroid ultrasound. Dictated By: Trinidad Garcia Signed By: Electronically signed by Trinidad Garcia 11/15/23 1455 EXAMINATION: XR TIBIA AND FIBULA, LEFT CLINICAL INFORMATION: Pain. COMPARISON: Prior radiographs, most recently 01/24/2021. TECHNIQUE: AP and lateral views of the left tibia and fibula were obtained. FINDINGS: Bony alignment is normal. There is generalized bony demineralization. No acute fracture, dislocation or left ankle joint effusion is seen. The joint space compartments at the knee and ankle are well-maintained. There is mild irregularity of the articular surface of the medial femoral condyle. An old, healed posterior malleolus fracture is questioned. No focal soft tissue swelling, gas or foreign body is seen. XR/XR tibia fibula LT 2V IMPRESSION: 1. No acute fracture or dislocation is seen. 2. There is mild osteoarthritic change of the medial joint space compartment of the left knee. 3. There is bony demineralization. Dictated By: Bc Burleson MD Signed By: Electronically signed by Bc Burleson MD 11/15/23 1512 EXAMINATION: XR SHOULDER, LEFT CLINICAL INFORMATION: Fall, shoulder pain COMPARISON: Chest radiograph the 2017. TECHNIQUE: Three views of the left shoulder. FINDINGS: Osseous cortical discontinuity of the left distal clavicle, with mild, 1 cm superior translation of the distal clavicular osseous fragment. Glenohumeral joint space is well-preserved. Acromioclavicular joint is unremarkable. Coracoclavicular distance is normal. Soft tissues are unremarkable. XR/XR shoulder LT min 2V IMPRESSION: Findings suspicious for a mildly displaced left distal clavicular fracture. Dictated By: Ruben Matamoros MD Signed By: Electronically signed by Ruben Matamoros MD 11/15/23 9761 Radiology Impression Discussion of test interpretation with radiology: I have reviewed the radiologist's reading. Independent Historian Clinical information obtained from an independent historian. History obtained from or confirmed by: EMS (EMS provided additional history and confirmed the history provided by the patient.) and Other (patient's daughter provided additional history and confirmed the history provided by the patient) Critical Care Time Critical Care Time Critical Care Time: Yes Total Critical Care Time: 38 Attestation: I spent 38 minutes of Critical Care Time with this patient. This does not include time spent on separately reported billable procedures. Discharge Plan Discharge Clinical Impression: Clavicle fracture, Thyroid mass Patient Disposition: Still a Patient Instructions: Clavicle Fracture (ED) Additional Instructions: Follow up with your primary care provider about the below incidental findings on your head and c-spine CT scans: 1. Chronic appearing lacunar infarcts in the deep brain nuclei and right thalamus. 2. Extensive chronic microangiopathy and generalized cerebral volume loss. 3. Chronic appearing mild superior endplate compression deformity at T1. 4. Heterogeneous thyroid with an approximately 5.5 cm mass on the left side. Follow up with an orthopedic provider for your broken left clavicle. Return to the emergency department immediately if your symptoms worsen or if you develop any dizziness, shortness of breath, difficulty breathing, chest pain, blurry vision, loss of vision, nausea, vomiting, abdominal pain, fever, chills, back pain, or any other complaints. Prescriptions: No Action cholecalciferol (vitamin D3) 50 mcg (2,000 unit) capsule 50 mcg PO DAILY Qty: 90 3RF (DME) rollator walker with seat See Rx Instructions .Route .MEDSUPPLY Qty: 1 0RF Rx Instructions: As directed gabapentin 100 mg capsule 100 mg PO BID 30 Days Qty: 60 4RF Print Language: Bolivian
[2023-11-15 13:26] VITALS: BP 132/61; BP 164/84; PULSE 74; RESP 18; TEMP 36.9; O2SAT 95; O2SAT 98; BMI 29.2
[2023-11-15 14:31] VITALS: BP 164/84; PULSE 71; RESP 18; TEMP 36.9; O2SAT 96
[2023-11-15] MEDS: oxyCODONE HCl Immed Release 5 MG TABLET 10 MG PO (16:14)
--- NOTE | 2023-11-15 16:31 | PC.NURSE ---
Sling applied to left shoulder, medicated for complaints of left shoulder pain per mar, daughter at bedside aware of plan to be seen by PT/ case management. Assisted to commode
--- NOTE | 2023-11-15 16:40 | MHC.CM.ED ---
Met w/pt and dtr [place] to discuss d/c planning needs. Pt resides alone and has 2hrs/day of [employer] services 3x weekly from [facility] to assist w/showering and housekeeping. Dtr transports pt to appointments and assists as needed. Pt uses a cane but does not have other DME. Pt states she furniture walks and her apt is very small. Pt was not able to transfer from commode to bed without 2 staff assisting her d/t new left clavicle fx. Pt feels she will be able to manage at home and is very strongly denying STR. Dtr feels pt will have increased falls and or injury if she returns to home. After much discussion, pt agrees for a PT eval to best determine what her functional ability will safely allow. Pt and dtr understand this will not occur until 11/16. Pt states she will not give CM permission to make STR/AR referrals at this time and will think about [facility] should PT recommend it. CM to follow for PT eval and finalization of d/c planning needs.
--- NOTE | 2023-11-15 18:23 | PC.NURSE ---
Sling to left shoulder adjusted. Med rec completed, provider notified
[2023-11-15 18:40] VITALS: BP 147/72; PULSE 69; RESP 15; O2SAT 94
[2023-11-15] MEDS: Gabapentin 100 MG CAPSULE PO (20:09)
[2023-11-15] MEDS: oxyCODONE HCl Immed Release 5 MG TABLET PO (23:54)
[2023-11-16 03:40] VITALS: BP 152/66; PULSE 68; RESP 16; TEMP 36.6; O2SAT 93
[2023-11-16] MEDS: oxyCODONE HCl Immed Release 5 MG TABLET PO (06:13)
[2023-11-16] MEDS: Cholecalciferol (Vitamin D3) 25 MCG TABLET 50 MCG PO (07:58)
[2023-11-16] MEDS: Gabapentin 100 MG CAPSULE PO ×2 (07:58→19:56)
[2023-11-16 09:09] VITALS: BP 149/70; PULSE 66; RESP 20; TEMP 36.4; O2SAT 96
--- NOTE | 2023-11-16 11:14 | MHC.CM.ED ---
Pt continues to board in the ED pending PT evaluation. Pt states her new shoulder fx remains limiting and painful and although continues to refuse STR, she is willing to have a PT eval on 11/16. ED CM to follow for finalization of d/c planning needs. No referrals made at this time
[2023-11-16 12:09] VITALS: BP 154/82; PULSE 64; RESP 20; TEMP 36.6; O2SAT 96
[2023-11-16 21:05] VITALS: BP 146/70; PULSE 68; RESP 20; TEMP 37; O2SAT 94
[2023-11-17] MEDS: oxyCODONE HCl Immed Release 5 MG TABLET PO ×2 (00:35→23:23)
[2023-11-17 06:00] VITALS: BP 160/86; PULSE 91; RESP 16; TEMP 37.1; O2SAT 92
[2023-11-17] MEDS: Cholecalciferol (Vitamin D3) 25 MCG TABLET 50 MCG PO (07:44)
[2023-11-17] MEDS: Gabapentin 100 MG CAPSULE PO ×2 (07:44→20:19)
[2023-11-17 08:15] VITALS: BP 148/70; PULSE 80; RESP 17; TEMP 36.7; O2SAT 93
--- NOTE | 2023-11-17 10:53 | MHC.CM.ED ---
Addendum entered by Marissa Pritchett 11/17/23 14:29: Patient will d/c to [facility] tomorrow 11/17 at 9am. [facility] MATTA Booked. [facility] with chart. Patient, daughter Natividad, Malina HERNANDEZ and Allyson DUBON aware. Addendum entered by Marissa Pritchett 11/17/23 12:50: [facility] does not have a bed. [facility] does. MDS completed. Faxed to [facility] and sent to facility. Will need [facility] approval from [facility] prior to transfer to facility. Original Note: Patient remains in ER overflow. Physical therapy eval completed. Short term rehab is recommended. Met with patient and daughter Natividad. List of facilities provided. Patient choices: 1) [facility] 2) [facility] and 3) [facility]. Referral made via [facility]. Continue to monitor for d/c needs.
[2023-11-17] MEDS: Docusate Sodium 100 MG CAPSULE PO ×2 (11:27→20:19)
[2023-11-17 16:20] LABS: COVID-19 Test Negative (Negative); IDNOW Serial# 9DB6401D
[2023-11-17 18:22] LABS: Appearance Urine Clear; Color Urine Yellow; Glucose Urine UA Negative (Negative); Leukocyte Esterase Urine Moderate (2+) (Negative); Nitrite Urine Negative (Negative); Specific Gravity - Urine 1.015 (1.005-1.025); UMIC TRIGGER UACC YES; Urine Blood Trace (Negative); Urine Ketones Negative (Negative); Urine Protein Negative (Neg-Trace)
[2023-11-17 18:25] LABS: Bacteria Urine None Seen (None Seen); Hyaline Casts Urine 0-2 /LPF (0-2); RBC Urine 0-2 /HPF (0-2); Squamous Epithelial Cell Urine 0-2 /HPF (0-2); UACC Culture Trigger YES
[2023-11-17 20:27] VITALS: BP 148/82; PULSE 82; RESP 16; TEMP 36.9; O2SAT 93
--- NOTE | 2023-11-17 20:28 | PC.NURSE ---
Addendum entered by Margret Adamson RN 11/18/23 06:11: Abx for U/A deferred by PA as pt is asymptomatic. Pt is voiding adequate amounts via purewick, or bedpan when attempting to have BM. Pt denies pelvic pain or discomfort. Pt called for oxycodone once during investment underwriter's shift, given with +effect. Pt refused scheduled tylenol later in the shift. Pt resting in bed with eyes closed for most of shift. No distress noted. Bed bath provided this morning and linens changed. Bed alarm in place and safety measures continue. Original Note: Assumed care of patient at 19:00. Pt continues in ED overflow, here for PT/CM s/p fall at home. LUE remains in sling for clavicular fx. Pt is A&Ox4, forgetful, needs frequent reminder to keep sling in place properly/not manipulate it due to shoulder injury. Pt reporting pain this evening though is refusing offers for anything other than her scheduled gabapentin; pt states I'll call if I need anything else . Breathing is even and unlabored without distress on RA. VSS. Pt assisted to commode with 2 assist this evening though gait very unsteady and pt very nervous, resistive to directions/assistance. Patient returned to bed and purewick placed for rest overnight per pt request. Covering PA Karsten Velez notified of U/A results from today, investment underwriter inquired of further orders or lab orders; awaiting response at this time. Pt denies issues with voiding. Patient resting in bed without distress. Bed alarm on, safety measures in place.
[2023-11-18 00:23] VITALS: RESP 16
[2023-11-18 05:23] VITALS: BP 166/78; PULSE 71; RESP 16; TEMP 37.2; O2SAT 92
[2023-11-18 07:47] VITALS: BP 148/80; PULSE 72; RESP 16; TEMP 36.8; O2SAT 92
[2023-11-18] MEDS: Cholecalciferol (Vitamin D3) 25 MCG TABLET 50 MCG PO (07:52)
[2023-11-18] MEDS: Docusate Sodium 100 MG CAPSULE PO (07:52)
[2023-11-18] MEDS: Gabapentin 100 MG CAPSULE PO (07:53)
[2023-11-18 09:13] VITALS: BP 148/80; PULSE 72; RESP 16; TEMP 36.8; O2SAT 92
== END 2023-11-18 09:14 | disposition skilled nursing facility (03) ==
PROVIDERS: Physician Assistant; Emergency Provider Emergency Medicine Emergency Medical Services; PCP Nurse Practitioner Family
DX: S42.002A Fracture of unspecified part of left clavicle, initial encounter for closed fracture (principal); W17.89XA Other fall from one level to another, initial encounter; E07.9 Disorder of thyroid, unspecified; F17.210 Nicotine dependence, cigarettes, uncomplicated; Y93.89 Activity, other specified; Y92.009 Unspecified place in unspecified non-institutional (private) residence as the place of occurrence of the external cause; Y99.9 Unspecified external cause status; Z11.52 Encounter for screening for COVID-19
CPT/HCPCS: 70450; 71045; 72125; 73030; 73590; 81001; 87086; 87635; 97162; 99285

== ENCOUNTER 2023-12-12 08:06 | Outpatient (AMB) | payer MEDICARE, MEDICAID, SELFPAY ==
--- NOTE | 2023-12-12 08:22 | MHC.OFFVIS ---
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 Patient reports she tripped and fell trying to put away some water bottles and landed on her left shoulder. She was seen in [facility] ED on 11/15/23 and was provided with a sling. Patient reports she is having a 8 out of 10 pain currently. She took pain medication before this visit and states she is finding relief. Denies pain with movement of fingers, numbness, and tingling. [facility] and daughter is hoping she will be home soon. Accompanied by: Daughter Allergies ciprofloxacin [From CIPRO] Allergy (Intermediate, Verified 12/12/23 08:24) SHORTNESS OF BREATH metronidazole [From FLAGYL] Allergy (Intermediate, Verified 12/12/23 08:24) SHORTNESS OF BREATH aspirin [ASPIRIN] Allergy (Unknown, Verified 12/12/23 08:24) CAN'T TAKE BECAUSE OF BLEEDING, gi bleed, gi bleeding latex [LATEX] Allergy (Unknown, Verified 12/12/23 08:24) DIFFICULTY BREATHING tramadol [From ULTRAM] Allergy (Unknown, Verified 12/12/23 08:24) DIZZINESS Latex Allergy (Unknown, Uncoded 12/12/23 08:24) Unknown Latex Gloves Allergy (Unknown, Uncoded 12/12/23 08:24) rash HPI HPI EXCEPTIONAL NEEDS TEACHER-Clavicle fracture, left shoulder: Details: Patient is an 83-year-old female who presents for evaluation of left clavicle fracture, date of injury 11/15/2023. Patient was previously evaluated in the emergency department, where she was given a sling and told to restrict overhead range of motion and no heavy lifting in her left hand. Today, the patient reports she is feeling okay, and then she has been experiencing a lot of chronic pain and other areas of her body, but that her clavicle is not painful at this time. Patient inquires if can use a standard rolling walker at this time, as physical therapy at the rehab at which she is currently placed as her using a macarena walker, and she feels that this is very unstable and is concerned she is going to fall [facility] Medical History Arthritis Tobacco use Anxiety Venous stasis dermatitis GERD (gastroesophageal reflux disease) White coat syndrome with high blood pressure but without hypertension Social History Housing: Apartment Alcohol intake: former Patient Tobacco Use Status: Current everyday Tobacco user Cigarette Packs Per Day: 1 Cigarettes Per Day: 10 Years Smoked: 20 yrs e-Cigarette/Vaping Use: Never Used Second Hand Smoke Exposure: No Advance Directives Date on File: 10/03/20 service: No Current occupational status: retired Cognitive needs: No Hearing needs: No Vision needs: No Review of Systems Const All systems reviewed & are unremarkable except as noted in HPI and below Physical Exam Extrem Other: Patient is alert, oriented, and in no acute distress. Neuro: Sensation to the distal LUE intact Vascular: Cap refill brisk Pain: Patient reports no pain with palpation of the clavicle over the fracture site. ROM: Patient is able to externally rotate to approximately 60 degrees at the shoulders, equal bilaterally ROM at the left elbow, wrist, and fingers full and intact Skin: No visible bump or deformity over the L clavicle No lacerations or abrasions. General: No ecchymosis, erythema, or evidence of infection. Psych: Appears grossly normal Affect normal Attitude cooperative Office Procedures Fracture Care Details: Displaced left clavicle fracture Fracture Billing Code: Fracture Billing Code Results Reviewed Results Reviewed: X-rays obtained in the office today and independently reviewed by me, Colten Santamaria PA-C, demonstrate displaced distal left clavicle fracture with evidence of interval bony healing. Assessment & Plan Assessment & Plan (1) Clavicle fracture: Code(s): S42.009A - Fracture of unspecified part of unspecified clavicle, initial encounter for closed fracture Category: Medical Qualifiers: Clavicle location: lateral end Encounter type: initial encounter Fracture alignment: displaced Fracture type: closed Laterality: left Qualified Code(s): S42.032A - Displaced fracture of lateral end of left clavicle, initial encounter for closed fracture Plan 1. Left clavicle fracture Date of injury 11/15/2023 At this time, surgical intervention is not indicated in this patient Patient will be managed conservatively Patient is educated that she only has to wear the sling for comfort Patient is instructed to avoid any overhead motion with her left upper extremity 2 lb weight limit on left upper extremity Patient is advised that she can begin to use a rolling walker for stability with PT at rehab, but that if she begins to experience any pain in her left shoulder clavicle, discontinue use of standard walker and go back to macarena walker Patient will follow-up in 3-4 weeks with repeat x-rays for assessment of healing and discussion of potential return to normal function Orders: Orders XR clavicle LT Today M89.8X1 - Other specified disorders of bone, shoulder Coding Level of Care Code New Pt Level 3 (18242) Diagnoses Closed displaced fracture of acromial end of left clavicle, initial encounter S42.032A Clavicle location: lateral end Encounter type: initial encounter Fracture alignment: displaced Fracture type: closed Laterality: left CPT Codes Fracture Care - Fracture Billing Code: Fracture Billing Code ([id number])
== END 2023-12-12 09:05 | disposition home or self-care (01) ==
PROVIDERS: PCP Nurse Practitioner Family
DX: S42.032A Displaced fracture of lateral end of left clavicle, initial encounter for closed fracture (principal)
CPT/HCPCS: 99203

== ENCOUNTER 2023-12-12 12:21 | Emergency (ER) | payer MEDICARE, MEDICAID, SELFPAY ==
--- NOTE | ~2023-12-12 | CT_ITS ---
EXAMINATION: CT scan of the right ankle without contrast x-rays of the right tibia-fibula November 2023. CLINICAL INFORMATION: Evaluate for fracture COMPARISON: None. TECHNIQUE: CT scan of the right ankle is performed with reconstruction imaging performed at the acquisition workstation. FINDINGS: There is mild deformity of the distal fibula compatible with old healed fracture. Tibia intact. Mild irregular sclerosis in the medial aspect of the cuboid likely reflects old healed fracture. Calcaneocuboid joint normal. The remaining bone and joints are unremarkable other than generalized osteopenia. Muscles/tendons: Unremarkable. Subcutaneous soft tissues: Generalized fluidlike density compatible edema, cellulitis or combination of these. Favor edema. CT/CT ankle RT wo IV con IMPRESSION: 1. No acute fracture. 2. Old healed fractures of the distal fibula and cuboid. 3. Generalized fluidlike density in the subcutaneous soft tissues compatible edema, cellulitis or combination of these.
[2023-12-12 12:32] VITALS: BP 128/76; PULSE 72; O2SAT 96
[2023-12-12 12:38] VITALS: BP 138/73; PULSE 77; RESP 17; TEMP 36.6; O2SAT 98; BMI 23.1
--- NOTE | 2023-12-12 12:48 | ED_ITS ---
HPI - Extremity Injury (Lower) General Chief Complaint: Extremity Injury, Lower Stated Complaint: ?RT ANKLE FX PER EMS Time Seen by Provider: 12/12/23 12:31 History of Present Illness HPI Narrative: Patient is an 83-year-old female with a history of a possible right distal fibula ankle fracture. Sent from the rehab facility for evaluation by Orthopedics. The initial trauma actually occurred about a month ago. Patient had x-ray done on December 04. Subsequently was sent to the hospital today for further evaluation after going to rehab. There is no fever no chills. No systemic complaints. Complaining of pain when she ambulates. There was no new trauma today. Related Data Home Medications ?Medication ?Instructions ?Recorded ?Confirmed latanoprost 0.005 % eye drops 1 drp ophthalmic (eye) BEDTIME 11/15/23 11/15/23 Previous Rx's ?Medication ?Instructions ?Recorded cholecalciferol (vitamin D3) 50 50 mcg PO DAILY #90 caps 06/27/23 mcg (2,000 unit) capsule rollator walker with seat #1 ea 07/28/23 gabapentin 100 mg capsule 100 mg PO BID 30 days #60 caps 10/30/23 oxycodone 5 mg tablet 5 mg PO Q6H PRN pain (scale score 11/18/23 4-6) #12 tabs Allergies Allergy/AdvReac Type Severity Reaction Status Date / Time ciprofloxacin [From CIPRO] Allergy Intermediate SHORTNESS Verified 12/12/23 12:41 OF BREATH metronidazole [From FLAGYL] Allergy Intermediate SHORTNESS Verified 12/12/23 12:41 OF BREATH aspirin [ASPIRIN] Allergy Unknown CAN'T TAKE Verified 12/12/23 12:41 BECAUSE OF BLEEDING, gi bleed, gi bleeding latex [LATEX] Allergy Unknown DIFFICULTY Verified 12/12/23 12:41 BREATHING tramadol [From ULTRAM] Allergy Unknown DIZZINESS Verified 12/12/23 12:41 Latex Allergy Unknown Unknown Uncoded 12/12/23 12:41 Latex Gloves Allergy Unknown rash Uncoded 12/12/23 12:41 Review of Systems 2 Review of Systems: No fever no chills no chest pain or diaphoresis Yes all other systems are reviewed and are negative PMFSH Past Medical History Attestation statement: The following information was validated with the patient. Medical History Arthritis Tobacco use Anxiety Venous stasis dermatitis GERD (gastroesophageal reflux disease) White coat syndrome with high blood pressure but without hypertension Social History Social History Housing: Apartment Alcohol intake: former Patient Tobacco Use Status: Current everyday Tobacco user Cigarette Packs Per Day: 1 Cigarettes Per Day: 10 Years Smoked: 20 yrs e-Cigarette/Vaping Use: Never Used Second Hand Smoke Exposure: No Advance Directives: Yes Advance Directives on File: Yes Advance Directives Date on File: 10/03/20 service: No Current occupational status: retired Cognitive needs: No Hearing needs: No Vision needs: No Physical Exam 2 Vital Signs: Vital Signs: Last Vital Signs Temp 98.0 F 12/12/23 14:19 Pulse 66 12/12/23 14:19 Resp 16 12/12/23 14:19 BP 147/66 H 12/12/23 14:19 Pulse Ox 97 12/12/23 14:19 O2 Del Method Room Air 12/12/23 14:19 BMI result Body Mass Index 23.1 Appearance: Alert. Oriented X3. No acute distress. Eyes: Pupils equal, round and reactive to light. ENT: Pharynx normal. Neck: Normal inspection. Neck supple. No lymph nodes noted. No crepitus CVS: Normal heart rate and rhythm. Pulses normal. Normal S1 and S2 Respiratory: No respiratory distress. Breath sounds normal. No Wheezing. No rales Abdomen: Soft and nontender. No rigidity. No distention. good BS x4 Skin: Skin warm and dry. Normal skin color. Normal skin turgor. Extremities: No lower extremity edema. Neurovascular intact to all extremities. No Lacerations. No Rash. Right ankle exam- No pain on palpation of the medial malleolus. No pain on palpation of the lateral malleolus. No pain at the base of the 5th metatarsal. There is good dorsiflexion and plantar flexion. There is good pulses distally. Patient's skin is intact. Neuro: Oriented X 3. No motor deficit. No sensory deficit. Moving all extermities. No slurred speech Medical Decision Making Medical Decision Making MDM Narrative: Patient's CT scan of the ankle actually showed no acute fracture. Physical therapy evaluated the patient. Case management evaluated the patient. Okay for patient to go back to rehab. She is currently in stable condition. Differential Diagnosis Differential Diagnoses: The differential diagnosis associated with the presentation includes Admission/Observation Consideration of admission/observation: Escalation of care including admission/observation considered Consult Healthcare Provider Management of the patient was discussed with: Teacher Vocational Training (Physical therapy, case management) Lab Data MDM Lab Attestation statement: I reviewed the patient's lab results. 12/12/23 13:02 12/12/23 13:02 Labs: Lab Results 12/12/23 Range/Units 13:02 WBC 8.7 (4.8-10.8) X10*3/uL RBC 5.59 H (4.20-5.50) X10*6/uL Hgb 16.5 H (12.0-16.0) g/dl Hct 51.0 H (37.0-47.0) % MCV 91.2 (80.0-98.0) fL MCH 29.5 (27.0-33.0) pg MCHC 32.4 (31.0-35.0) g/dl RDW 13.3 (11.0-16.0) % Plt Count 313 (160-400) X10*3/uL MPV 9.8 (9.4-12.3) fL Immature Gran % (Auto) 0.3 (0.0-0.4) % Neut % (Auto) 68.6 (45-73) % Lymph % (Auto) 19.2 L (20-40) % [place] % (Auto) 9.9 (2-11) % Eos % (Auto) 1.1 (0-4) % Baso % (Auto) 0.9 (0-2) % Lymph # (Auto) 1.7 (1.2-4.9) X10*3/uL [place] # (Auto) 0.9 (0.1-1.2) X10*3/uL Eos # (Auto) 0.1 (0.0-0.4) X10*3/uL Baso # (Auto) 0.1 (0.0-0.2) X10*3/uL Abs Immat Gran (auto) 0.03 (0.00-0.03) X10*3/uL Absolute Neuts (auto) 6.0 (2.0-8.3) x10*3/uL Absolute Nucleated RBC 0.000 (0.0-0.012) X10*3/uL Nucleated RBC % (auto) 0.0 (0.0-0.2) /100WBC Sodium 138 (135-145) mmol/L Potassium 4.0 (3.3-5.1) mmol/L Chloride 99 (96-108) mmol/L Carbon Dioxide 31 H (22-29) mmol/L Anion Gap 12 (12-20) BUN 13 (9-16) mg/dL Creatinine 0.70 (0.5-1.4) mg/dL Estim Creat Clear Calc 63.6 Estimated GFR > 60 Random Glucose 103 (60-115) mg/dL Calcium 10.3 H (8.4-10.2) mg/dL Radiology Impression Discussion of test interpretation with radiology: I have reviewed the radiologist's reading. External Record Review Outpatient snf record reviewed Chronic Conditions Clavicle fracture Discharge Plan Discharge Clinical Impression: Acute ankle pain Patient Disposition: Home, Self-Care Instructions: Arthralgia (ED) Prescriptions: No Action cholecalciferol (vitamin D3) 50 mcg (2,000 unit) capsule 50 mcg PO DAILY Qty: 90 3RF (DME) rollator walker with seat See Rx Instructions .Route .MEDSUPPLY Qty: 1 0RF Rx Instructions: As directed gabapentin 100 mg capsule 100 mg PO BID 30 Days Qty: 60 4RF latanoprost 0.005 % drops 1 drp ophthalmic (eye) BEDTIME oxycodone 5 mg tablet 5 mg PO Q6H PRN (Reason: pain (scale score 4-6)) Qty: 12 0RF Rx Instructions: Partial Fill upon patient request. Referrals: [facility] [Outside] Print Language: Ukrainian
[2023-12-12 13:06] LABS: MANUAL DIFF FLAG NO
[2023-12-12 13:11] LABS: Basophils Absolute Auto 0.1 X10*3/uL (0.0-0.2); Basophils Percent Auto 0.9 % (0-2); Eosinophils Absolute Auto 0.1 X10*3/uL (0.0-0.4); Eosinophils Percent Auto 1.1 % (0-4); Hemoglobin 16.5 g/dl (12.0-16.0); Imm Gran Abs Auto 0.03 X10*3/uL (0.00-0.03); Imm Gran Pct Auto 0.3 % (0.0-0.4); Lymphocytes Absolute Auto 1.7 X10*3/uL (1.2-4.9); Lymphocytes Percent Auto 19.2 % (20-40); Mean Corpuscular HGB Conc 32.4 g/dl (31.0-35.0); Mean Corpuscular Hemoglobin 29.5 pg (27.0-33.0); Mean Corpuscular Volume 91.2 fL (80.0-98.0); Mean Platelet Volume 9.8 fL (9.4-12.3); Monocytes Absolute Auto 0.9 X10*3/uL (0.1-1.2); Monocytes Percent Auto 9.9 % (2-11); Neutrophils Percent Auto 68.6 % (45-73); Platelet Count 313 X10*3/uL (160-400); Red Blood Count 5.59 X10*6/uL (4.20-5.50); Red Cell Distribution Width 13.3 % (11.0-16.0); White Blood Count 8.7 X10*3/uL (4.8-10.8)
[2023-12-12 13:25] LABS: Anion Gap 12 (12-20); Blood Urea Nitrogen 13 mg/dL (9-16); Calcium 10.3 mg/dL (8.4-10.2); Carbon Dioxide 31 mmol/L (22-29); Chloride 99 mmol/L (96-108); Creatinine Clr Calc Pharmacy 63.6; Estimated Glomerular Filt Rate > 60; Glucose Random 103 mg/dL (60-115); Sodium 138 mmol/L (135-145)
[2023-12-12 14:19] VITALS: BP 147/66; PULSE 66; RESP 16; TEMP 36.7; O2SAT 97
--- NOTE | 2023-12-12 14:36 | MHC.CM.ED ---
Addendum entered by Marissa Pritchett 12/12/23 15:14: [facility] will [facility] to [facility] via [facility]LS at 5pm Original Note: Received telephone call from Nieves of [facility]. Patient is from their facility. Came to ER to confirm if ankle fracture is new or old. Anticipate patient will return after ER Visit. Return referral sent in [facility] so facility can follow. Continue to monitor for d/c needs.
[2023-12-12 14:56] VITALS: BP 147/66; PULSE 66; O2SAT 97
[2023-12-12 14:56] LABS: Appearance Urine Turbid; Color Urine Dark Yellow; Glucose Urine UA Negative (Negative); Leukocyte Esterase Urine Large (3+) (Negative); Nitrite Urine Negative (Negative); PH 6.5 (5.0-9.0); Specific Gravity - Urine 1.015 (1.005-1.025); UMIC TRIGGER UACC YES; Urine Blood Trace (Negative); Urine Ketones Trace mg/dL (Negative); Urine Protein Trace mg/dL (Neg-Trace)
--- NOTE | 2023-12-12 14:58 | MHC.EDTECH ---
this tech took over care at this time, when checking on pt she appeared in no apparent distress
[2023-12-12 15:09] LABS: Bacteria Urine 1+ (None Seen); Renal Epithelial Cells Urine Present; Transitional Epi Cells Urine Present; UACC Culture Trigger YES; WBC Urine >50 /HPF (0-5)
[2023-12-12 15:59] VITALS: BP 136/61; PULSE 73; RESP 16; TEMP 36.7; O2SAT 94
--- NOTE | 2023-12-12 16:01 | MHC.EDTECH ---
at this time assisted pt getting dressed prior to discharge
[2023-12-12 16:45] VITALS: BP 134/77; PULSE 80; RESP 17; TEMP 36.6; O2SAT 95
== END 2023-12-12 16:46 | disposition home or self-care (01) ==
PROVIDERS: Emergency Provider Emergency Medicine Emergency Medical Services; PCP Nurse Practitioner Family
DX: M25.571 Pain in right ankle and joints of right foot (principal); N39.0 Urinary tract infection, site not specified; B96.4 Proteus (mirabilis) (morganii) as the cause of diseases classified elsewhere
CPT/HCPCS: 36415; 73700; 80048; 81001; 85025; 87086; 87088; 87186; 97161; 99284; 99285

== ENCOUNTER 2023-12-12 14:45 | Outpatient (REF) | payer MEDICARE, MEDICAID, SELFPAY ==
--- NOTE | ~2023-12-12 | XR_ITS ---
EXAMINATION: XR CLAVICLE, LEFT CLINICAL INFORMATION: Clavicle fracture COMPARISON: 11/15/2023 TECHNIQUE: Two views of the left clavicle. FINDINGS: Redemonstration of the obliquely oriented fracture of the distal clavicle, distal to the coracoclavicular ligaments, approximating the acromioclavicular joint at the inferior aspect. There is approximately 3-5 mm of dorsal displacement with no definite osseous bridging. XR/XR clavicle LT IMPRESSION: Redemonstration of the distal clavicle fracture with slight dorsal displacement. No definite osseous bridging.
== END 2023-12-12 14:46 | disposition home or self-care (01) ==
LOC: HO.HOSX 14:45
DX: M89.8X1 Other specified disorders of bone, shoulder (principal); S42.032A Displaced fracture of lateral end of left clavicle, initial encounter for closed fracture; W01.0XXA Fall on same level from slipping, tripping and stumbling without subsequent striking against object, initial encounter; Y93.9 Activity, unspecified; Y92.9 Unspecified place or not applicable; Y99.9 Unspecified external cause status
CPT/HCPCS: 73000; 99202

== ENCOUNTER 2024-01-02 06:40 | Outpatient (REF) | payer MEDICARE, MEDICAID, SELFPAY | END 2024-01-02 06:41 | disposition home or self-care (01) | LOC: HO.HOSX 06:40 | DX: Z13.89 Encounter for screening for other disorder (principal) ==

== ENCOUNTER 2024-01-16 08:40 | Outpatient (AMB) | payer MEDICARE, MEDICAID, SELFPAY ==
--- NOTE | 2024-01-16 09:20 | MHC.OFFVIS ---
Vital Signs 01/16/24 09:20 Handedness Right Intake Visit Reasons: OV-Clavicle fracture, left shoulder Intake Note: Ni is a 83 year old right hand dominant female who presents today with her daughter Natividad for a follow up for a clavicle fracture s/p fall DOI 11/15/23. Patient reports every so often because she is in bed and has to be rolled over by the CNAs to be changed she has soreness/tenderness where her clavicle fracture was. She works with PT and OT everday at the rehab she is in. Accompanied by: Daughter Allergies ciprofloxacin [From CIPRO] Allergy (Intermediate, Verified 01/16/24 09:24) SHORTNESS OF BREATH metronidazole [From FLAGYL] Allergy (Intermediate, Verified 01/16/24 09:24) SHORTNESS OF BREATH aspirin [ASPIRIN] Allergy (Unknown, Verified 01/16/24 09:24) CAN'T TAKE BECAUSE OF BLEEDING, gi bleed, gi bleeding latex [LATEX] Allergy (Unknown, Verified 01/16/24 09:24) DIFFICULTY BREATHING tramadol [From ULTRAM] Allergy (Unknown, Verified 01/16/24 09:24) DIZZINESS Latex Allergy (Unknown, Uncoded 01/16/24 09:24) Unknown Latex Gloves Allergy (Unknown, Uncoded 01/16/24 09:24) rash HPI HPI OV-Clavicle fracture, left shoulder: Details: Patient is an 83-year-old female who presents for repeat evaluation of left clavicle fracture, date of injury 11/15/2023. Unfortunately, the patient had to miss her previously scheduled follow-up appointment due to COVID-19. Today, the patient reports that she is feeling well, and does not experience any discomfort at rest in her right shoulder. The patient reports that she has been working with physical and occupational therapy at the rehab facility at which she is currently residing. She reports that this is going well. Patient has no other acute complaints or concerns at this time. [facility] Medical History Arthritis Tobacco use Anxiety Venous stasis dermatitis GERD (gastroesophageal reflux disease) White coat syndrome with high blood pressure but without hypertension Social History Housing: Apartment Alcohol intake: never Patient Tobacco Use Status: Current everyday Tobacco user Cigarette Packs Per Day: 1 Cigarettes Per Day: 10 Years Smoked: 20 yrs e-Cigarette/Vaping Use: Never Used Second Hand Smoke Exposure: No Advance Directives Date on File: 10/03/20 service: No Current occupational status: retired Cognitive needs: No Hearing needs: No Vision needs: No Physical Exam Extrem Other: On Examination is no visible or palpable deformity of the left clavicle or shoulder No erythema, edema, ecchymosis noted No evidence of infection No lacerations, abrasions, or open areas noted Patient reports no tenderness to palpation over the distal aspect of the left clavicle or the shoulder Patient able to forward flex the shoulder degrees to 90 degrees, and only reports minimal discomfort when she gets to 90 degrees External rotation to approximately 60 degrees of bilateral shoulders Distal sensation intact Capillary refill brisk Results Reviewed Results Reviewed: X-rays obtained in the office today and independently reviewed by me, Colten Santamaria PA-C, demonstrate displaced fracture of the distal end of the left clavicle, alignment largely unchanged from previous x-rays, with evidence of interval bony healing. Assessment & Plan Assessment & Plan (1) Clavicle fracture: Code(s): S42.009A - Fracture of unspecified part of unspecified clavicle, initial encounter for closed fracture Category: Medical Qualifiers: Clavicle location: lateral end Encounter type: initial encounter Fracture alignment: displaced Fracture type: closed Laterality: left Qualified Code(s): S42.032A - Displaced fracture of lateral end of left clavicle, initial encounter for closed fracture Plan 1. Left clavicle fracture Date of injury 11/15/2023 Patient is recovering well from her injury Patient is educated about the typical recovery course At this time, the patient is educated that she can proceed with more motion away from the body as tolerated Patient is also told that she can still ambulate with a cane if PT at her rehab facility feels this is safe Patient is amenable to this plan Patient is educated that she should call to see us again if she experiences any increased pain, swelling, redness, or a repeat injury that causes pain to the area. Patient does not require any acute follow-up at this time, can follow-up as needed with any acute concerns Orders: Orders XR clavicle LT Today M89.8X1 - Other specified disorders of bone, shoulder Coding Level of Care Code Global (25288) Diagnoses Closed displaced fracture of acromial end of left clavicle, initial encounter S42.032A Clavicle location: lateral end Encounter type: initial encounter Fracture alignment: displaced Fracture type: closed Laterality: left
== END 2024-01-16 10:15 | disposition home or self-care (01) ==
PROVIDERS: PCP Nurse Practitioner Family
DX: S42.032A Displaced fracture of lateral end of left clavicle, initial encounter for closed fracture (principal)
CPT/HCPCS: 99212

== ENCOUNTER 2024-01-16 08:47 | Outpatient (REF) | payer MEDICARE, MEDICAID, SELFPAY ==
--- NOTE | ~2024-01-16 | XR_ITS ---
EXAMINATION: XR CLAVICLE, LEFT CLINICAL INFORMATION: Clavicle fracture. COMPARISON: Left shoulder radiographs dated 12/12/2023. TECHNIQUE: AP and axial views of the left clavicle. FINDINGS: Redemonstration of an oblique fracture through the distal aspect of the left clavicle in unchanged anatomic alignment. Peripheral new bone/callus formation with persistence of the fracture line, measuring up to 0.4 cm in ML dimension. Moderate acromioclavicular osteoarthritis, unchanged. No osseous erosion. No new fracture. XR/XR clavicle LT IMPRESSION: 1. Distal left clavicular fracture in unchanged anatomic alignment with new bone/callus formation. 2. Moderate acromioclavicular osteoarthritis, unchanged. Electronically signed by: Luis Guillermo MD 02/11/2024 08:59 PM EDT
== END 2024-01-16 08:48 | disposition home or self-care (01) ==
LOC: HO.HOSX 08:47
PROVIDERS: PCP Nurse Practitioner Family
DX: M89.8X1 Other specified disorders of bone, shoulder (principal); S42.032A Displaced fracture of lateral end of left clavicle, initial encounter for closed fracture
CPT/HCPCS: 73000; 99212

== ENCOUNTER 2024-01-23 09:26 | Inpatient (IN) | payer MEDICARE, MEDICAID, SELFPAY ==
[2024-01-23] VITALS (17 sets, daily range): BP systolic 82–128; BP diastolic 49–76; PULSE 73–96; RESP 13–31; TEMP 34.5–36.6; O2SAT 93–99; BMI 22.9
--- NOTE | 2024-01-23 | ECG_ITS ---
Test Reason : REPEAT EKG Blood Pressure : / mmHG Vent. Rate : 081 BPM Atrial Rate : 267 BPM P-R Int : 000 ms QRS Dur : 098 ms QT Int : 430 ms P-R-T Axes : 088 -63 078 degrees QTc Int : 499 ms Atrial flutter with variable A-V block with premature ventricular or aberrantly conducted complexes Pulmonary disease pattern Left anterior fascicular block Septal infarct (cited on or before 04-JUN-2017) Abnormal ECG When compared with ECG of 23-JAN-2024 10:02, Incomplete right bundle branch block is no longer Present Questionable change in initial forces of Anteroseptal leads Referred By: Terrence Potter Electronically Signed By:ELIJAH ARMENDARIZ
--- NOTE | 2024-01-23 | ECG_ITS ---
Test Reason : REPEAT FALL Blood Pressure : / mmHG Vent. Rate : 087 BPM Atrial Rate : 277 BPM P-R Int : 000 ms QRS Dur : 098 ms QT Int : 414 ms P-R-T Axes : 070 -76 050 degrees QTc Int : 498 ms Atrial flutter with variable A-V block Incomplete right bundle branch block Left anterior fascicular block Minimal voltage criteria for LVH, may be normal variant ( Seth product ) Cannot rule out Inferior infarct (masked by fascicular block?) , age undetermined Anteroseptal infarct (cited on or before 04-JUN-2017) Abnormal ECG When compared with ECG of 23-JAN-2024 09:49, No significant change was found Referred By: Radha Lawrence Electronically Signed By:ELIJAH ARMENDARIZ
--- NOTE | ~2024-01-23 | XR_ITS ---
EXAMINATION: XR SHOULDER, LEFT CLINICAL INFORMATION: Pain, fall. COMPARISON: Radiograph left clavicle 12/12/2023. TECHNIQUE: Three views of the left shoulder. FINDINGS: Redemonstration of distal left clavicular fracture. No interval fracture. No dislocation. 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 No significant soft tissue abnormality. XR/XR shoulder LT min 2V IMPRESSION: 1. Redemonstration of distal left clavicular fracture. 2. No interval fracture or dislocation. Electronically signed by: Thalia Garcia MD 01/24/2024 12:56 PM EDT
--- NOTE | ~2024-01-23 | CT_ITS ---
EXAMINATION: CT HEAD WITHOUT CONTRAST CT FACE WITHOUT CONTRAST CT CERVICAL SPINE WITHOUT CONTRAST CLINICAL INFORMATION: Fall. Facial trauma. Neck pain. COMPARISON: CT head and cervical spine 11/15/2023. TECHNIQUE: [employer] images were obtained. CT imaging of the head, face, and cervical spine was performed without contrast. Data was reformatted into multiplanar images at the acquisition or sedation. This CT examination was performed using dose optimization techniques as appropriate, including one or more of the following: Automated exposure control, iterative reconstruction, and adjustment of technique factors (mA and/or kVp) according to patient size (this includes techniques or standardized protocols for targeted exams where dose is matched to indication/reason for exam). Fleischner Society criteria for the followup of incidental pulmonary nodules was implemented if appropriate. DLP: 2542 mGy-cm. FINDINGS: Head: There is no acute intracranial hemorrhage. No mass effect or midline shift. No abnormal extra-axial collection. There are scattered nonspecific foci of hypoattenuation within the periventricular white matter, basal ganglia, and thalami that have remained stable when compared to 11/15/2023 and most likely represent a chronic manifestation of small vessel ischemia. Sanchez-white matter differentiation is otherwise preserved and there is no evidence of an acute surgical infarct. There is swelling of the frontal scalp. The underlying calvarium is intact. No mastoid middle ear effusion. Face: There is a subtle nondisplaced acute fracture involving the right medial pterygoid process best visualized on axial image 149 273 series 19 and a few scattered foci of soft tissue gas located within the production support specialist space involving the muscle belly of the right medial pterygoid muscle. Nasal bones and zygomatic arches are otherwise intact. No acute mandibular fracture. 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 No temporomandibular joint dislocation. Paranasal sinuses are well aerated and the major paranasal sinus drainage pathways are patent. Cervical spine: Spinal alignment is normal. Vertebral body heights are preserved. No acute cervical spine fracture. No abnormal prevertebral soft tissue swelling. Canal patency is not well assessed on this examination due to inherent limitations CT without intrathecal contrast. Grossly no spinal canal compromise. Uncovertebral joint spurring causes no more than mild bilateral neuroforaminal encroachment at C5-C6. Visualized lung apices are clear. Note there is a thyroid goiter with asymmetric enlargement of the left thyroid lobe which measures up to 5.2 cm in maximal AP dimension. CT/CT facial bones wo IV con IMPRESSION: Head: There is swelling of the frontal scalp. The underlying calvarium is intact. There are scattered chronic small vessel ischemic changes within the periventricular white matter, basal ganglia, and thalami. No evidence of acute territorial infarct or hemorrhage. Face: There is a subtle nondisplaced acute fracture involving the right medial pterygoid process. Otherwise no acute facial fracture. 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 No temporomandibular joint dislocation. Cervical Spine: No acute cervical spine fracture and no posttraumatic spinal subluxation. Electronically signed by: Kory Latham MD 01/23/2024 05:20 PM EDT
--- NOTE | ~2024-01-23 | CT_ITS ---
EXAMINATION: CT Chest, Abdomen, and Pelvis CLINICAL INFORMATION: Trauma, fall, chest and abdominal pain COMPARISON: None TECHNIQUE: Helical computed tomography was performed from the inferior neck through the pubic symphysis after administration of 85 mL of Omnipaque 350 intravenous contrast. Multiplanar reconstructions are available for interpretation. DOSE LOWERING TECHNIQUES: This CT examination was performed using dose optimization techniques as appropriate, variously including the following: - Automated exposure control - Adjustment of mA and/or kV according to patient size (this includes techniques or standardized protocols for targeted exams were dose is matched to indication/reason for exam; i.e. extremities or head) - Use of degenerative construction technique Total DLP is 2542 mGy*cm. FINDINGS: Lungs: Pleural-pleural scarring at the apices. There is moderate emphysema. Airways: The central airways are patent. The peripheral airways are normal. There is no bronchiectasis. Pleura: The pleural surfaces are normal bilaterally. There is no pleural effusion. There is no pneumothorax. Mediastinum/Leena: There are no pathologically enlarged mediastinal or hilar lymph nodes. Enlarged heterogeneously enhancing left thyroid gland extending into the superior mediastinum. Multiple hypoenhancing nodules. Cardiovascular: The heart is globally normal in size. The thoracic aorta is normal in course and caliber. The main pulmonary artery is normal in caliber. There is no pericardial effusion or pericardial thickening. Liver: Normal in size and attenuation. Focal fat infiltration adjacent to the gallbladder fossa. Gallbladder and bile ducts: Not visualized. There is moderate intra and extrahepatic biliary ductal dilatation of the common bile duct measuring up to 2.4 cm. Spleen: Normal in size and attenuation. Pancreas: Unremarkable. Adrenal glands: There is thickening of the left adrenal gland. There is a 1.2 cm right adrenal nodule. Right kidney: Multiple hypodensities are too small to characterize. There is no hydronephrosis or hydroureter. Left kidney: Multiple hypodensities are too small to characterize. There is no hydronephrosis or hydroureter. Lymph nodes: There is no lymphadenopathy in the abdomen or pelvis. Gastrointestinal tract: Postsurgical changes in the right lower quadrant. No bowel wall thickening. Colonic diverticulosis is noted. Urinary bladder: The bladder is normal. Pelvic organs: The uterus is atrophic. There are multiple small calcified fibroids. There is a heterogeneously enhancing 5.4 cm uterine mass. Vasculature: Normal in caliber. Moderate atherosclerotic disease. Additional findings: There is no intraperitoneal free air or fluid. Soft tissues: Unremarkable. Osseous structures: Multiple old left-sided rib fractures. No acute rib fractures. Chronic T7 compression fracture. CT/CT abdomen pelvis w IV con IMPRESSION: 1. No acute traumatic injury. 2. Moderate emphysema. 3. Enlarged heterogeneously enhancing left thyroid gland extending into the superior mediastinum. 4. Moderate intra and extrahepatic biliary ductal dilatation. Recommend correlation with LFTs. 5. 5.4 cm heterogeneously enhancing uterine mass may be a fibroid, however recommend further evaluation with pelvic ultrasound and/or pelvic MRI. 6. 1.2 cm right adrenal nodule on the indeterminant. Electronically signed by: Randee Gillette MD 01/23/2024 04:08 PM EDT
--- NOTE | ~2024-01-23 | CT_ITS ---
EXAMINATION: CT HEAD WITHOUT CONTRAST CT FACE WITHOUT CONTRAST CT CERVICAL SPINE WITHOUT CONTRAST CLINICAL INFORMATION: Fall. Facial trauma. Neck pain. COMPARISON: CT head and cervical spine 11/15/2023. TECHNIQUE: Pile Driving Supervisor images were obtained. CT imaging of the head, face, and cervical spine was performed without contrast. Data was reformatted into multiplanar images at the acquisition or sedation. This CT examination was performed using dose optimization techniques as appropriate, including one or more of the following: Automated exposure control, iterative reconstruction, and adjustment of technique factors (mA and/or kVp) according to patient size (this includes techniques or standardized protocols for targeted exams where dose is matched to indication/reason for exam). Fleischner Society criteria for the followup of incidental pulmonary nodules was implemented if appropriate. DLP: 2542 mGy-cm. FINDINGS: Head: There is no acute intracranial hemorrhage. No mass effect or midline shift. No abnormal extra-axial collection. There are scattered nonspecific foci of hypoattenuation within the periventricular white matter, basal ganglia, and thalami that have remained stable when compared to 11/15/2023 and most likely represent a chronic manifestation of small vessel ischemia. Sanchez-white matter differentiation is otherwise preserved and there is no evidence of an acute surgical infarct. There is swelling of the frontal scalp. The underlying calvarium is intact. No mastoid middle ear effusion. Face: There is a subtle nondisplaced acute fracture involving the right medial pterygoid process best visualized on axial image 149 273 series 19 and a few scattered foci of soft tissue gas located within the supervisor locomotive space involving the muscle belly of the right medial pterygoid muscle. Nasal bones and zygomatic arches are otherwise intact. No acute mandibular fracture. 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 No temporomandibular joint dislocation. Paranasal sinuses are well aerated and the major paranasal sinus drainage pathways are patent. Cervical spine: Spinal alignment is normal. Vertebral body heights are preserved. No acute cervical spine fracture. No abnormal prevertebral soft tissue swelling. Canal patency is not well assessed on this examination due to inherent limitations CT without intrathecal contrast. Grossly no spinal canal compromise. Uncovertebral joint spurring causes no more than mild bilateral neuroforaminal encroachment at C5-C6. Visualized lung apices are clear. Note there is a thyroid goiter with asymmetric enlargement of the left thyroid lobe which measures up to 5.2 cm in maximal AP dimension. CT/CT cervical spine wo IV con IMPRESSION: Head: There is swelling of the frontal scalp. The underlying calvarium is intact. There are scattered chronic small vessel ischemic changes within the periventricular white matter, basal ganglia, and thalami. No evidence of acute territorial infarct or hemorrhage. Face: There is a subtle nondisplaced acute fracture involving the right medial pterygoid process. Otherwise no acute facial fracture. 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 No temporomandibular joint dislocation. Cervical Spine: No acute cervical spine fracture and no posttraumatic spinal subluxation. Electronically signed by: Kory Latham MD 01/23/2024 05:20 PM EDT
--- NOTE | ~2024-01-23 | XR_ITS ---
EXAMINATION: XR ANKLE, RIGHT CLINICAL INFORMATION: Ankle fracture COMPARISON: Right tib-fib 01/24/2024 TECHNIQUE: AP and lateral views of the right ankle. FINDINGS: Again seen are comminuted fractures involving the distal fibula and tibia. Detail is now obscured by plaster splint. When comparison is made to the prior exam, there has been improvement in appearances with better alignment of the fibular component on the AP view without angulation. There is slightly worse alignment of one of the tibial fracture segments which now points laterally. The ankle mortise appears unremarkable. XR/XR ankle RT min 3V IMPRESSION: Comminuted fractures of the distal tibia and fibula with some improvement in alignment as described above.. Electronically signed by: Saulo Ruiz MD 01/27/2024 03:29 PM EDT
--- NOTE | ~2024-01-23 | XR_ITS ---
EXAMINATION: XR knee RT 2V (accession [id number]), XR tibia fibula RT 2V (accession [id number]), XR ankle RT min 3V (accession [id number]) CLINICAL INFORMATION: Status post fall COMPARISON: CT ankle 11/12/2023 TECHNIQUE: Two views of the tibia and fibula, 2 views of the knee, 2 views of the ankle FINDINGS: Displaced, comminuted impacted fracture of the distal fibular diaphysis. Obliquely oriented comminuted displaced fracture of the distal tibial metadiaphysis. Soft tissue swelling about the ankle. No tibiotalar joint effusion. Osteopenia. Moderate osteoarthritis the knee. Depressed intra-articular fracture of the lateral tibial plateau, for which recommend further characterization with CT knee. Probable tibiotalar joint effusion. XR/XR tibia fibula RT 2V IMPRESSION: 1. Displaced, comminuted impacted fracture of the distal fibular diaphysis. 2. Obliquely oriented comminuted displaced fracture of the distal tibial metadiaphysis. 3. Depressed intra-articular fracture of the lateral tibial plateau, for which recommend further characterization with CT knee. 4. Probable tibiotalar joint effusion. 5. Osteopenia. 6. Moderate osteoarthritis of the knee. Electronically signed by: Luana Munguia MD 01/24/2024 12:10 PM EDT
--- NOTE | ~2024-01-23 | XR_ITS ---
EXAMINATION: XR knee RT 2V (accession [id number]), XR tibia fibula RT 2V (accession [id number]), XR ankle RT min 3V (accession [id number]) CLINICAL INFORMATION: Status post fall COMPARISON: CT ankle 11/12/2023 TECHNIQUE: Two views of the tibia and fibula, 2 views of the knee, 2 views of the ankle FINDINGS: Displaced, comminuted impacted fracture of the distal fibular diaphysis. Obliquely oriented comminuted displaced fracture of the distal tibial metadiaphysis. Soft tissue swelling about the ankle. No tibiotalar joint effusion. Osteopenia. Moderate osteoarthritis the knee. Depressed intra-articular fracture of the lateral tibial plateau, for which recommend further characterization with CT knee. Probable tibiotalar joint effusion. XR/XR knee RT 2V IMPRESSION: 1. Displaced, comminuted impacted fracture of the distal fibular diaphysis. 2. Obliquely oriented comminuted displaced fracture of the distal tibial metadiaphysis. 3. Depressed intra-articular fracture of the lateral tibial plateau, for which recommend further characterization with CT knee. 4. Probable tibiotalar joint effusion. 5. Osteopenia. 6. Moderate osteoarthritis of the knee. Electronically signed by: Luana Munguia MD 01/24/2024 12:10 PM EDT
--- NOTE | ~2024-01-23 | XR_ITS ---
EXAMINATION: XR SHOULDER, RIGHT CLINICAL INFORMATION: Right shoulder pain COMPARISON: None available. TECHNIQUE: Three views of the right shoulder. FINDINGS: There is moderate acromioclavicular osteoarthritis. Glenohumeral joint is well preserved. No fracture. Alignment is anatomic. Soft tissues are normal with no abnormal calcifications. XR/XR shoulder RT min 2V IMPRESSION: Moderate acromioclavicular osteoarthritis. Electronically signed by: Thiago Huynh MD 01/24/2024 11:55 AM EDT
--- NOTE | ~2024-01-23 | XR_ITS ---
EXAMINATION: XR knee RT 2V (accession [id number]), XR tibia fibula RT 2V (accession [id number]), XR ankle RT min 3V (accession [id number]) CLINICAL INFORMATION: Status post fall COMPARISON: CT ankle 11/12/2023 TECHNIQUE: Two views of the tibia and fibula, 2 views of the knee, 2 views of the ankle FINDINGS: Displaced, comminuted impacted fracture of the distal fibular diaphysis. Obliquely oriented comminuted displaced fracture of the distal tibial metadiaphysis. Soft tissue swelling about the ankle. No tibiotalar joint effusion. Osteopenia. Moderate osteoarthritis the knee. Depressed intra-articular fracture of the lateral tibial plateau, for which recommend further characterization with CT knee. Probable tibiotalar joint effusion. XR/XR ankle RT min 3V IMPRESSION: 1. Displaced, comminuted impacted fracture of the distal fibular diaphysis. 2. Obliquely oriented comminuted displaced fracture of the distal tibial metadiaphysis. 3. Depressed intra-articular fracture of the lateral tibial plateau, for which recommend further characterization with CT knee. 4. Probable tibiotalar joint effusion. 5. Osteopenia. 6. Moderate osteoarthritis of the knee. Electronically signed by: Luana Munguia MD 01/24/2024 12:10 PM EDT
--- NOTE | ~2024-01-23 | CT_ITS ---
EXAMINATION: CT HEAD WITHOUT CONTRAST CT FACE WITHOUT CONTRAST CT CERVICAL SPINE WITHOUT CONTRAST CLINICAL INFORMATION: Fall. Facial trauma. Neck pain. COMPARISON: CT head and cervical spine 11/15/2023. TECHNIQUE: Food Counselor images were obtained. CT imaging of the head, face, and cervical spine was performed without contrast. Data was reformatted into multiplanar images at the acquisition or sedation. This CT examination was performed using dose optimization techniques as appropriate, including one or more of the following: Automated exposure control, iterative reconstruction, and adjustment of technique factors (mA and/or kVp) according to patient size (this includes techniques or standardized protocols for targeted exams where dose is matched to indication/reason for exam). Fleischner Society criteria for the followup of incidental pulmonary nodules was implemented if appropriate. DLP: 2542 mGy-cm. FINDINGS: Head: There is no acute intracranial hemorrhage. No mass effect or midline shift. No abnormal extra-axial collection. There are scattered nonspecific foci of hypoattenuation within the periventricular white matter, basal ganglia, and thalami that have remained stable when compared to 11/15/2023 and most likely represent a chronic manifestation of small vessel ischemia. Sanchez-white matter differentiation is otherwise preserved and there is no evidence of an acute surgical infarct. There is swelling of the frontal scalp. The underlying calvarium is intact. No mastoid middle ear effusion. Face: There is a subtle nondisplaced acute fracture involving the right medial pterygoid process best visualized on axial image 149 273 series 19 and a few scattered foci of soft tissue gas located within the bullet lubricating machine operator space involving the muscle belly of the right medial pterygoid muscle. Nasal bones and zygomatic arches are otherwise intact. No acute mandibular fracture. 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 No temporomandibular joint dislocation. Paranasal sinuses are well aerated and the major paranasal sinus drainage pathways are patent. Cervical spine: Spinal alignment is normal. Vertebral body heights are preserved. No acute cervical spine fracture. No abnormal prevertebral soft tissue swelling. Canal patency is not well assessed on this examination due to inherent limitations CT without intrathecal contrast. Grossly no spinal canal compromise. Uncovertebral joint spurring causes no more than mild bilateral neuroforaminal encroachment at C5-C6. Visualized lung apices are clear. Note there is a thyroid goiter with asymmetric enlargement of the left thyroid lobe which measures up to 5.2 cm in maximal AP dimension. CT/CT head/brain wo IV con IMPRESSION: Head: There is swelling of the frontal scalp. The underlying calvarium is intact. There are scattered chronic small vessel ischemic changes within the periventricular white matter, basal ganglia, and thalami. No evidence of acute territorial infarct or hemorrhage. Face: There is a subtle nondisplaced acute fracture involving the right medial pterygoid process. Otherwise no acute facial fracture. 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 No temporomandibular joint dislocation. Cervical Spine: No acute cervical spine fracture and no posttraumatic spinal subluxation. Electronically signed by: Kory Latham MD 01/23/2024 05:20 PM EDT
--- NOTE | ~2024-01-23 | CT_ITS ---
EXAMINATION: CT KNEE WITHOUT CONTRAST, RIGHT CLINICAL INFORMATION: Tibial plateau fracture COMPARISON: X-ray 01/24/2024 TECHNIQUE: Axial imaging. Sagittal and coronal reconstructions. This CT examination was performed using dose optimization techniques as appropriate, variously including the following: *Automated exposure control *Adjustment of mA and/or kV according to patient size (this includes techniques or standardized protocols for targeted exams where dose is matched to indication/reason for exam; i.e. extremities or head) *Use of iterative reconstruction technique DLP: 257 mGy-cm FINDINGS: Diffuse bone demineralization. There is an acute, comminuted depressed fracture of the lateral tibial plateau, with bone depression of up to approximately 1.5 cm. No acute fracture is identified of the femur or fibula. Mild lateral patellar subluxation. Mild-moderate patellofemoral, and medial compartment arthritis. Lateral femoral condyle subchondral lucencies from arthritis. Moderate effusion. Quadriceps and patellar tendon are grossly intact. Subcutaneous edema. CT/CT knee RT wo IV con IMPRESSION: 1. Acute, comminuted depressed fracture of the lateral tibial plateau, with depression of approximately 1.5 cm. 2. Tricompartment osteoarthritis. 3. Moderate effusion. Electronically signed by: Patrick Monique MD 01/24/2024 03:55 PM EDT
--- NOTE | 2024-01-23 09:31 | ECG_ITS ---
Test Reason : FALL Blood Pressure : / mmHG Vent. Rate : 087 BPM Atrial Rate : 277 BPM P-R Int : 000 ms QRS Dur : 098 ms QT Int : 394 ms P-R-T Axes : 090 -76 056 degrees QTc Int : 474 ms Atrial flutter with variable A-V block Incomplete right bundle branch block Left anterior fascicular block Minimal voltage criteria for LVH, may be normal variant ( Seth product ) Anteroseptal infarct (cited on or before 04-JUN-2017) Lateral injury pattern ACUTE [place] / STEMI Abnormal ECG When compared with ECG of 12-DEC-2017 20:02, Atrial flutter has replaced Sinus rhythm Incomplete right bundle branch block is now Present Questionable change in initial forces of Anteroseptal leads Referred By: Julianne Whitman Electronically Signed By:ELIJAH ARMENDARIZ
--- NOTE | 2024-01-23 09:33 | ED.ABDPAIN ---
HPI - Abdominal Pain General Chief Complaint: Fall Stated Complaint: FALL YEST FACE SWELLING ON R SIDE Time Seen by Provider: 01/23/24 09:31 Source: patient and EMS Mode of arrival: EMS Limitations: no limitations History of Present Illness ED Provider: Mariano KIM HPI narrative: This is an 83-year-old female history of anxiety, hypertension, venous stasis presenting to the emergency department with complaints of trip and fall on unable to get up from the ground, she reports she tripped at some point yesterday unclear how, she was unable to get up from the ground, her daughter did not hear from her since yesterday she decided to go to her house and found her face down on the ground. She has complaining of right-sided face pain, abrasion to the right buenrostro and right wrist region. Again unclear how she fell. Not on blood thinners. Unclear if she hit her head. Patient reports she was too weak to get up. Denies chest pain, shortness of breath, nausea, vomiting, abdominal pain, headache, vision changes, dizziness and weakness. GCS 15 Related Data Home Medications ?Medication ?Instructions ?Recorded ?Confirmed latanoprost 0.005 % eye drops 1 drp ophthalmic (eye) BEDTIME 11/15/23 11/15/23 Previous Rx's ?Medication ?Instructions ?Recorded cholecalciferol (vitamin D3) 50 50 mcg PO DAILY #90 caps 06/27/23 mcg (2,000 unit) capsule rollator walker with seat #1 ea 07/28/23 gabapentin 100 mg capsule 100 mg PO BID 30 days #60 caps 10/30/23 Allergies Allergy/AdvReac Type Severity Reaction Status Date / Time ciprofloxacin [From CIPRO] Allergy Intermediate SHORTNESS Verified 01/23/24 11:08 OF BREATH metronidazole [From FLAGYL] Allergy Intermediate SHORTNESS Verified 01/23/24 11:08 OF BREATH aspirin [ASPIRIN] Allergy Unknown CAN'T TAKE Verified 01/23/24 11:08 BECAUSE OF BLEEDING, gi bleed, gi bleeding latex [LATEX] Allergy Unknown DIFFICULTY Verified 01/23/24 11:08 BREATHING tramadol [From ULTRAM] Allergy Unknown DIZZINESS Verified 01/23/24 11:08 Latex Allergy Unknown Unknown Uncoded 01/23/24 11:08 Latex Gloves Allergy Unknown rash Uncoded 01/23/24 11:08 Review of Systems Review of Systems Yes all other systems are reviewed and are negative [facility] Past Medical History Attestation statement: The following information was validated with the patient. Source: old records reviewed and nursing notes reviewed Medical History Arthritis Tobacco use Anxiety Venous stasis dermatitis GERD (gastroesophageal reflux disease) White coat syndrome with high blood pressure but without hypertension Social History Social History Housing: Apartment Alcohol intake: never Patient Tobacco Use Status: Current everyday Tobacco user Cigarette Packs Per Day: 1 Cigarettes Per Day: 10 Years Smoked: 20 yrs e-Cigarette/Vaping Use: Never Used Second Hand Smoke Exposure: No Advance Directives: Yes Advance Directives on File: Yes Advance Directives Date on File: 10/03/20 service: No Current occupational status: retired Cognitive needs: No Hearing needs: No Vision needs: No Physical Exam ED Vital Signs: Vital Signs - 24 hr 01/23/24 09:40 01/23/24 10:13 01/23/24 11:21 Temperature Pulse Rate 96 83 73 Respiratory Rate 20 20 31 H Blood Pressure 95/56 L 82/52 L 100/66 Pulse Oximetry 94 94 94 Oxygen Delivery Method Nasal Cannula Room Air Room Air Oxygen Flow Rate 01/23/24 11:56 01/23/24 12:33 01/23/24 12:52 Temperature 94.1 F L 97.9 F 98 F Pulse Rate 81 89 79 Respiratory Rate 30 H 20 26 H Blood Pressure 117/67 128/76 125/71 Pulse Oximetry 93 95 95 Oxygen Delivery Method Room Air Nasal Cannula Nasal Cannula Oxygen Flow Rate 2.2 2 01/23/24 13:07 01/23/24 14:07 01/23/24 14:46 Temperature 97.7 F 97.7 F Pulse Rate 82 77 Respiratory Rate 24 H 20 20 Blood Pressure 99/56 L 102/67 Pulse Oximetry 97 97 Oxygen Delivery Method Nasal Cannula Nasal Cannula Oxygen Flow Rate 2.5 2.5 BMI result Body Mass Index 22.9 vss Appearance: Alert.? Oriented X3.? No acute distress.? Head: Patient noted to have significant edema overlying the right side of the face particularly overlying the right orbit with associated ecchymosis, extraocular movements intact and pain-free. Patient in cervical collar Eyes: Pupils equal, round and reactive to light.? ENT: Pharynx normal.? Mucous membranes extremely dry Neck: Normal inspection.? Neck supple.? CVS: Normal heart rate and rhythm.? Pulses normal.? Respiratory: No respiratory distress.? Breath sounds normal.? Abdomen: Soft and nontender.? Skin: Skin warm and dry.? Normal skin color.? Normal skin turgor.?Skin tear to right buenrostro and wrist Extremities: No lower extremity edema.? No calf ttp. global weakness. R shoulder appears swollen w/ ecchymosis Neuro: Oriented X 3.? No motor deficit.? No sensory deficit. CN 2-12 intact Course Reevaluation(s) Reevaluation #1: Patient hypotensive, pressures down trending at this time infection suspected will give fluids, ceftriaxone, patient does smell like UTI, will obtain straight cath for urine. Time: 10:18 Reevaluation #2: CBC notable for a slightly higher leukocytosis when compared to her baseline with neutrophil predominance. normocytic anemia appears to be lower than her baseline. Chemistry unremarkable. Lactic negative. BNP elevated --> 772 so light hydration will be used. Time: 11:30 Reevaluation #3: Patient's chemistry with slightly elevated sodium, potassium of 2.2 IV potassium ordered, chloride also high 130, carbon dioxide level low 10, BUN 23 and creatinine 1.18 IV hydration ordered. Low 4.6 will continue to monitor. Magnesium 1.2 IV MAC ordered. Total CPK 7743. Troponin 5624.4 EKG showing atrial flutter patient has no history of this in the past will run this by Cardiology. Troponin could be elevated secondary to acute rhabdo however will rule out cardiac process. BNP 772 no previous to compare with. Patient has a low albumin of 1.6. Time: 11:37 Additional Reevaluation(s): Bicarb drip initiated. Ordered additional potassium. [address] Mcelroy repeat labs pending cmp, cpk, trop. Imaging still pending Medical Decision Making Medical Decision Making MDM Narrative: 83-year-old female presents status post trip and fall on inability to get up from the ground suspected that fall happened yesterday. Not on thinners. On exam right-sided facial swelling particularly around the right orbit with ecchymosis. Patient noted to have skin tears to right wrist and right anterior buenrostro. Global weakness noted and dry mucous membranes. Abnormal R shoulder. Will rule out traumatic injury to head, face, neck, chest, abdomen and pelvis. Will rule out metabolic derangements, urinary tract infection as well as dysrhythmias and cardiac etiologies for fall. Rhabdo will be rulled out. R shoulder appears swollen w/ ecchymosis will rule out fx/ dislocations. No signs of NV compromise. Plan labs, imaging, urine. Differential Diagnosis Differential Diagnoses: The differential diagnosis associated with the presentation includes Will rule out traumatic injury to head, face, neck, chest, abdomen and pelvis. Will rule out metabolic derangements, urinary tract infection as well as dysrhythmias and cardiac etiologies for fall. Rhabdo will be rulled out. R shoulder appears swollen w/ ecchymosis will rule out fx/ dislocations. No signs of NV compromise. Admission/Observation Consideration of admission/observation: Escalation of care including admission/observation considered Possible Consult Healthcare Provider Management of the patient was discussed with: Shower Screen Installer (lillie Thompson) Lab Data MDM Lab Attestation statement: I reviewed the patient's lab results. 01/23/24 10:26 01/23/24 10:26 Labs: Lab Results 01/23/24 01/23/24 01/23/24 Range/Units 10:26 10:32 12:38 WBC 10.8 (4.8-10.8) X10*3/uL RBC 3.29 L D (4.20-5.50) X10*6/uL Hgb 9.8 L D (12.0-16.0) g/dl Hct 29.6 L D (37.0-47.0) % MCV 90.0 (80.0-98.0) fL MCH 29.8 (27.0-33.0) pg MCHC 33.1 (31.0-35.0) g/dl RDW 14.5 (11.0-16.0) % Plt Count 160 D (160-400) X10*3/uL MPV 9.9 (9.4-12.3) fL Immature Gran % (Auto) 0.3 (0.0-0.4) % Neut % (Auto) 83.3 H (45-73) % Lymph % (Auto) 6.6 L (20-40) % [place] % (Auto) 9.6 (2-11) % Eos % (Auto) 0.0 (0-4) % Baso % (Auto) 0.2 (0-2) % Lymph # (Auto) 0.7 L (1.2-4.9) X10*3/uL [place] # (Auto) 1.0 (0.1-1.2) X10*3/uL Eos # (Auto) 0.0 (0.0-0.4) X10*3/uL Baso # (Auto) 0.0 (0.0-0.2) X10*3/uL Abs Immat Gran (auto) 0.03 (0.00-0.03) X10*3/uL Absolute Neuts (auto) 9.0 H (2.0-8.3) x10*3/uL Absolute Nucleated RBC 0.000 (0.0-0.012) X10*3/uL Nucleated RBC % (auto) 0.0 (0.0-0.2) /100WBC PT 12.7 (11.1-13.3) SEC INR 1.0 (0.9-1.1) O2 Saturation % ABG pH at Pt Temp (7.35-7.45) ABG pCO2 at Pt Temp (32-45) mmHg ABG pO2 at Pt Temp (83-108) mmHg ABG HCO3 (22-26) mmol/L ABG Base Excess (Actual) mmol/L Sodium 148 H (135-145) mmol/L Potassium 2.2 L* D (3.3-5.1) mmol/L Chloride 130 H D (96-108) mmol/L Carbon Dioxide 10 L* D (22-29) mmol/L Anion Gap 9 L (12-20) BUN 23 H (9-16) mg/dL Creatinine 1.18 (0.5-1.4) mg/dL Estim Creat Clear Calc 37.7 Estimated GFR 44 Random Glucose 90 (60-115) mg/dL Lactic Acid 0.6 (0.5-2.0) mmol/L Calcium 4.6 L* D (8.4-10.2) mg/dL Magnesium 1.2 L* (1.6-2.6) mg/dL Total Bilirubin 0.4 (0.0-1.0) mg/dL AST 121 H (5-31) U/L ALT 28 (0-31) U/L Alkaline Phosphatase 46 (39-117) U/L Total Creatine Kinase 7743 H (26-140) U/L Troponin I High Sens 5624.4 H* (<3.5-17.0) ng/L B-Natriuretic Peptide 772 H (<100) pg/mL Total Protein 3.0 L (6.5-8.0) g/dL Albumin 1.6 L (3.5-5.0) g/dL Urine Color DK YELLOW Urine Appearance Turbid Urine pH 5.5 (5.0-9.0) Ur Specific [place] >= 1.030 H (1.005-1.025) Urine Protein 100 (2+) H (Neg-Trace) mg/dL Urine Glucose (UA) Negative (Negative) mg/dL Urine Ketones 15 (Negative) mg/dL Urine Blood Moderate (2+) H (Negative) Urine Nitrite Positive H (Negative) Ur Leukocyte Esterase Moderate (2+) H (Negative) Urine RBC 3-5 H (0-2) /HPF Urine WBC >50 H (0-5) /HPF Ur Squamous Epith Cells >20 (0-2) /HPF Urine Bacteria 4+ (None Seen) Hyaline Casts 3-5 (0-2) /LPF 01/23/24 Range/Units 14:16 WBC (4.8-10.8) X10*3/uL RBC (4.20-5.50) X10*6/uL Hgb (12.0-16.0) g/dl Hct (37.0-47.0) % MCV (80.0-98.0) fL MCH (27.0-33.0) pg MCHC (31.0-35.0) g/dl RDW (11.0-16.0) % Plt Count (160-400) X10*3/uL MPV (9.4-12.3) fL Immature Gran % (Auto) (0.0-0.4) % Neut % (Auto) (45-73) % Lymph % (Auto) (20-40) % [place] % (Auto) (2-11) % Eos % (Auto) (0-4) % Baso % (Auto) (0-2) % Lymph # (Auto) (1.2-4.9) X10*3/uL [place] # (Auto) (0.1-1.2) X10*3/uL Eos # (Auto) (0.0-0.4) X10*3/uL Baso # (Auto) (0.0-0.2) X10*3/uL Abs Immat Gran (auto) (0.00-0.03) X10*3/uL Absolute Neuts (auto) (2.0-8.3) x10*3/uL Absolute Nucleated RBC (0.0-0.012) X10*3/uL Nucleated RBC % (auto) (0.0-0.2) /100WBC PT (11.1-13.3) SEC INR (0.9-1.1) O2 Saturation 99.0 % ABG pH at Pt Temp 7.32 L (7.35-7.45) ABG pCO2 at Pt Temp 35 (32-45) mmHg ABG pO2 at Pt Temp 102 (83-108) mmHg ABG HCO3 18 L (22-26) mmol/L ABG Base Excess (Actual) -6.4 mmol/L Sodium (135-145) mmol/L Potassium (3.3-5.1) mmol/L Chloride (96-108) mmol/L Carbon Dioxide (22-29) mmol/L Anion Gap (12-20) BUN (9-16) mg/dL Creatinine (0.5-1.4) mg/dL Estim Creat Clear Calc Estimated GFR Random Glucose (60-115) mg/dL Lactic Acid (0.5-2.0) mmol/L Calcium (8.4-10.2) mg/dL Magnesium (1.6-2.6) mg/dL Total Bilirubin (0.0-1.0) mg/dL AST (5-31) U/L ALT (0-31) U/L Alkaline Phosphatase (39-117) U/L Total Creatine Kinase (26-140) U/L Troponin I High Sens (<3.5-17.0) ng/L B-Natriuretic Peptide (<100) pg/mL Total Protein (6.5-8.0) g/dL Albumin (3.5-5.0) g/dL Urine Color Urine Appearance Urine pH (5.0-9.0) Ur Specific [place] (1.005-1.025) Urine Protein (Neg-Trace) mg/dL Urine Glucose (UA) (Negative) mg/dL Urine Ketones (Negative) mg/dL Urine Blood (Negative) Urine Nitrite (Negative) Ur Leukocyte Esterase (Negative) Urine RBC (0-2) /HPF Urine WBC (0-5) /HPF Ur Squamous Epith Cells (0-2) /HPF Urine Bacteria (None Seen) Hyaline Casts (0-2) /LPF Independent Interpretation I performed an independent interpretation of an: EKG (Vent. Rate : 087 BPM Atrial Rate : 277 BPM P-R Int : 000 ms QRS Dur : 098 ms QT Int : 414 ms P-R-T Axes : 070 -76 050 degrees QTc Int : 498 ms Atrial flutter with variable A-V block Incomplete right bundle branch block Left anterior fascicular block Minimal voltage cri) and CT Scan Radiology Impression Discussion of test interpretation with radiology: I have reviewed the radiologist's reading. Independent Historian Clinical information obtained from an independent historian. History obtained from or confirmed by: EMS External Record Review External record reviewed: Inpatient record, Office record, Outpatient record, Prior outpatient labs, Prior outpatient radiology, Primary care record and Outside ED record Chronic Conditions Patient?s care impacted by: Hypertension Medications Administered Generic Name Dose Route Start Last Admin Trade Name Freq PRN Reason Stop Dose Admin Sodium Bicarbonate 150 meq/ 1,000 mls @ 100 mls/hr 01/23/24 14:15 01/23/24 14:44 Dextrose IV 100 mls/hr .Q10H SUE Administration Discontinued Medications Generic Name Dose Route Start Last Admin Trade Name Freq PRN Reason Stop Dose Admin Bacitracin 1 appl 01/23/24 09:32 01/23/24 11:24 Bacitracin Oint 0.9 Gm Packet TOPICAL 01/23/24 09:33 1 appl ONCE ONE Administration Protocol Diphtheria/Tetanus/Acell Pertussis 0.5 ml 01/23/24 09:32 01/23/24 12:23 Diphth,Pertus(Acell),Tet Adult 0.5 Ml Syringe IM 01/23/24 09:33 Not Given .ONCE ONE Sodium Chloride 500 mls @ 500 mls/hr 01/23/24 10:15 01/23/24 11:56 Ns IV 01/23/24 11:14 Not Given .Q1H SUE Ceftriaxone Sodium 1 gm/ 50 mls @ 100 mls/hr 01/23/24 10:17 01/23/24 12:22 Sodium Chloride IV 01/23/24 10:46 Infused ONCE ONE Infusion Magnesium Sulfate 2 gm in 50 mls @ 25 mls/hr 01/23/24 11:28 01/23/24 14:51 Magnesium Sulfate/H2o IV 01/23/24 13:27 Infused ONCE ONE Infusion Sodium Chloride 1,000 mls @ 999 mls/hr 01/23/24 11:30 01/23/24 12:45 Ns IV 01/23/24 12:30 Not Given .Q1H1M SUE Potassium Chloride 10 meq in 100 mls @ 100 mls/hr 01/23/24 11:45 01/23/24 16:02 Potassium Chloride/H20 IV 01/23/24 13:44 Infused Q1H SUE Infusion Sodium Chloride 2,049.33 mls @ 2,049.33 mls/hr 01/23/24 12:15 01/23/24 14:50 Ns 30 ml/kg infuse over 1 hr (2049.33 ml) 01/23/24 13:14 Infused IV Infusion .Q1H STA Iohexol 100 ml 01/23/24 12:18 01/23/24 12:18 Iohexol 350 Mg/Ml 100 Ml Infus..Btl IV 01/23/24 12:19 85 ml ONCE ONE Administration Morphine Sulfate 4 mg 01/23/24 12:57 01/23/24 13:07 Morphine Sulfate 4 Mg/Ml Cartridge IVPUSH 01/23/24 12:58 4 mg ONCE ONE Administration Protocol Potassium Chloride 40 meq 01/23/24 11:28 01/23/24 12:50 Potassium Chloride Packet 20 Meq Packet PO 01/23/24 11:29 40 meq ONCE ONE Administration Critical Care Time Critical Care Time Critical Care Time: Yes Total Critical Care Time: 45 Attestation: I attest to this time spent taking care of the patient, obtaining history, physical, reviewing labs, imaging, speaking to my attending, specialist or hospitalist. Discharge Plan Discharge Clinical Impression: Sepsis, Atrial flutter, Fall, Elevated troponin, Rhabdomyolysis, UTI (urinary tract infection), Multiple skin tears, Blunt trauma of face Patient Disposition: Still a Patient Prescriptions: No Action cholecalciferol (vitamin D3) 50 mcg (2,000 unit) capsule 50 mcg PO DAILY Qty: 90 3RF (DME) rollator walker with seat See Rx Instructions .Route .MEDSUPPLY Qty: 1 0RF Rx Instructions: As directed gabapentin 100 mg capsule 100 mg PO BID 30 Days Qty: 60 4RF latanoprost 0.005 % drops 1 drp ophthalmic (eye) BEDTIME Print Language: Austrian
--- NOTE | 2024-01-23 10:00 | PC.NURSE ---
Pt.'s family states unknown time of trauma. States that this fall could have happened anytime between yesterday 01/21 @ 15:00 and this morning 01/22 at 08:00.
[2024-01-23 10:35] LABS: Basophils Percent Auto 0.2 % (0-2); Hematocrit 29.6 % (37.0-47.0); Hemoglobin 9.8 g/dl (12.0-16.0); Imm Gran Abs Auto 0.03 X10*3/uL (0.00-0.03); Imm Gran Pct Auto 0.3 % (0.0-0.4); Lymphocytes Absolute Auto 0.7 X10*3/uL (1.2-4.9); Lymphocytes Percent Auto 6.6 % (20-40); Mean Corpuscular HGB Conc 33.1 g/dl (31.0-35.0); Mean Corpuscular Hemoglobin 29.8 pg (27.0-33.0); Mean Platelet Volume 9.9 fL (9.4-12.3); Monocytes Percent Auto 9.6 % (2-11); Neutrophils Percent Auto 83.3 % (45-73); Platelet Count 160 X10*3/uL (160-400); Red Blood Count 3.29 X10*6/uL (4.20-5.50); Red Cell Distribution Width 14.5 % (11.0-16.0); White Blood Count 10.8 X10*3/uL (4.8-10.8)
[2024-01-23 10:37] LABS: Prothrombin Time 12.7 SEC (11.1-13.3)
[2024-01-23 10:47] LABS: Lactic Acid 0.6 mmol/L (0.5-2.0)
[2024-01-23 10:56] LABS: B Type Natriuretic Peptide 772 pg/mL (<100)
[2024-01-23] MEDS: Bacitracin Oint 0.9 GM PACKET 1 APPL TOPICAL (11:24)
[2024-01-23] MEDS: cefTRIAXone sodium 1 GM in 0.9 % Sodium Chloride 50 ML IV (11:25)
[2024-01-23 11:35] LABS: Alanine Aminotransferase 28 U/L (0-31); Albumin Level 1.6 g/dL (3.5-5.0); Alkaline Phosphatase 46 U/L (39-117); Anion Gap 9 (12-20); Aspartate Amino Transferase 121 U/L (5-31); Bilirubin Total 0.4 mg/dL (0.0-1.0); Blood Urea Nitrogen 23 mg/dL (9-16); Calcium 4.6 mg/dL (8.4-10.2); Carbon Dioxide 10 mmol/L (22-29); Chloride 130 mmol/L (96-108); Creatinine Clr Calc Pharmacy 37.7; Estimated Glomerular Filt Rate 44; Glucose Random 90 mg/dL (60-115); Magnesium 1.2 mg/dL (1.6-2.6); Potassium 2.2 mmol/L (3.3-5.1); Sodium 148 mmol/L (135-145)
--- NOTE | 2024-01-23 11:40 | PC.NURSE ---
Pt. remains in c-collar. Unable to obtain temperature and pt. feels cold to the touch. Still awaiting CT scan. Pt.'s right hip observed to be rotated outwards. PA aware. Pt. noted to be severely incontinent, and staff also needs a rectal temperature. Six staff members in room to provide incontinence care, holding c-spine and right hip. Rectal probe being inserted at this time for accurate temperature.
[2024-01-23] MEDS: iohexoL 350 MG/ML 100 ML INFUS..BTL IV (12:18)
--- NOTE | 2024-01-23 12:24 | PC.NURSE ---
placed pt on 2L NC for saO2 93% prior to pt going to CT. Pt went to CT on cardiac monitoring as well as o2 monitoring
--- NOTE | 2024-01-23 12:29 | HO.SKINPHOTO ---
Location: R buenrostro Category: skin tear Stage: Length: Width: Depth: cm Location: Category: Stage: Length: Width: Depth: cm Location: Category: Stage: Length: Width: Depth: cm Location: Category: Stage: Length: Width: Depth: cm Location: Category: Stage: Length: Width: Depth: cm Location: Category: Stage: Length: Width: Depth: cm
[2024-01-23 12:44] LABS: Appearance Urine Turbid; Color Urine DK YELLOW; Glucose Urine UA Negative (Negative); Leukocyte Esterase Urine Moderate (2+) (Negative); Nitrite Urine Positive (Negative); PH 5.5 (5.0-9.0); Specific Gravity - Urine >= 1.030 (1.005-1.025); UMIC TRIGGER UACC YES; Urine Blood Moderate (2+) (Negative); Urine Ketones 15 mg/dL (Negative); Urine Protein 100 (2+) mg/dL (Neg-Trace)
[2024-01-23] MEDS: Magnesium Sulfate/H2O 2 GM/50 ML PIGGYBACK IV (12:45)
--- NOTE | 2024-01-23 12:47 | PC.NURSE ---
per Kimberly DUBON - give pt a total of 2,054 (sepsis bolus) fluids - pt given inital liter of fluids to count toward this measure. directed to run the fluid very slowly for risk of overloading the patient.
[2024-01-23] MEDS: Potassium Chloride/H20 10 MEQ/100 ML PIGGYBACK 100 MEQ IV ×4 (12:50→17:59)
[2024-01-23] MEDS: Potassium Chloride Packet 20 MEQ PACKET 40 MEQ PO (12:50)
[2024-01-23 13:02] LABS: Bacteria Urine 4+ (None Seen); Squamous Epithelial Cell Urine >20 /HPF (0-2); UACC Culture Trigger YES; WBC Urine >50 /HPF (0-5)
[2024-01-23] MEDS: Morphine Sulfate 4 MG/ML CARTRIDGE IVPUSH (13:07)
--- NOTE | 2024-01-23 13:28 | PC.NURSE ---
Maylin (daughter) cell - [phone]. Wants to be called once CT scan results.
[2024-01-23 14:25] LABS: ABG Base Excess -6.4 mmol/L; ABG HCO3 18 mmol/L (22-26); ABG pCO2 35 mmHg (32-45); ABG pH 7.32 (7.35-7.45); ABG pO2 102 mmHg (83-108)
--- NOTE | 2024-01-23 14:33 | PC.NURSE ---
Called pharmacy- they are currently preparing sodium bicarb gtt at this time.
[2024-01-23 14:39] LABS: ABG Refer to POC result
[2024-01-23] MEDS: Sodium Bicarbonate 8.4% 150 MEQ in Dextrose 5 % 850 ML 100 MEQ IV (14:44)
[2024-01-23 16:09] LABS: Thyroid Stimulating Hormone 2.28 uIU/mL (0.32-4.0)
[2024-01-23 17:07] LABS: Alanine Aminotransferase 64 U/L (0-31); Alkaline Phosphatase 88 U/L (39-117); Anion Gap 15 (12-20); Aspartate Amino Transferase 278 U/L (5-31); Bilirubin Total 0.6 mg/dL (0.0-1.0); Blood Urea Nitrogen 42 mg/dL (9-16); Calcium 8.9 mg/dL (8.4-10.2); Carbon Dioxide 19 mmol/L (22-29); Chloride 113 mmol/L (96-108); Creatinine Clr Calc Pharmacy 15.7; Estimated Glomerular Filt Rate 16; Glucose Random 152 mg/dL (60-115); Potassium 4.5 mmol/L (3.3-5.1); Sodium 142 mmol/L (135-145); Total Protein 5.8 g/dL (6.5-8.0)
[2024-01-23] MEDS: Heparin Sodium,Porcine 5,000 UNIT/ML VIAL 5000 UNIT SUBCUT (17:56)
[2024-01-23] MEDS: Sodium Bicarbonate 8.4% 150 MEQ in Dextrose 5 % 850 ML 250 MEQ IV ×2 (18:04→22:01)
--- NOTE | 2024-01-23 18:30 | PC.NURSE ---
ICU unable to take report at this time d/t shift change
[2024-01-23] MEDS: Morphine Sulfate 2 MG/ML CARTRIDGE IVPUSH (19:38)
--- NOTE | 2024-01-23 20:16 | PM.CCHP ---
History of Present Illness Date of Service: 01/23/24 Attending physician on admission: Terrence Potter Chief Complaint: Mechanical fall Ms. 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 She was just discharged yesterday from rehab for a clavicle fracture.? On arrival to the emergency room, the patient's blood pressure 95/56, heart rate 96, O2 sat 94% on 2LNC.? Laboratory data significant for? hemoglobin 9.8, hematocrit 29.6, sodium 148, potassium 2.2, chloride 130, CO2 10, BUN 23, calcium 4.6, magnesium 1.2, AST 121, CPK 7743, troponin 5624, BNP 7 7 2, total protein 3.0, albumin 1.6, VBG 7.32/35/102/18.?UA indicative of UTI. Imaging: Head CT showed frontal scalp swelling but no underlying fracture.? Facial CT: subtle nondisplaced acute fracture involving the right medial pterygoid process. Cervical spine CT no acute fracture or subluxation. Abdomen/pelvis/chest CT: 1.? No acute traumatic injury. 2.? Moderate emphysema. 3.? Enlarged heterogeneously enhancing left thyroid gland extending into the superior mediastinum. 4.? Moderate intra and extrahepatic biliary ductal dilatation. Recommend correlation with LFTs. 5.? 5.4 cm heterogeneously enhancing uterine mass may be a fibroid, however recommend further evaluation with pelvic ultrasound and/or pelvic MRI. 6.? 1.2 cm right adrenal nodule on the indeterminant. ED course: ?The patient received 2049 mL normal saline per sepsis protocol.? She was given ceftriaxone 1 g, Mag sulfate 2 g, a total of 80 mEq potassium chloride, 1 amp sodium bicarb, morphine 2 mg, and a Tdap vaccination.? Review of Systems Review of Systems: Yes Unobtainable due to mental condition Neurologic: Denies Abnormal speech present and Reports confusion (forgetful) Psychiatric: Psychiatric: Reports confusion (forgetful) [facility] Past Medical History Medical History Arthritis Tobacco use Anxiety Venous stasis dermatitis GERD (gastroesophageal reflux disease) White coat syndrome with high blood pressure but without hypertension Social History Social History Household Members: None Housing: Apartment Do you presently have visiting nurse or other home services: Yes (5hrs/week) Alcohol intake: never Patient Tobacco Use Status: Current someday Tobacco user Tobacco use type: Cigarette Cigarette Packs Per Day: 1 Cigarettes Per Day: 10 Years Smoked: 20 yrs Smoked in Last 30 Days: Yes e-Cigarette/Vaping Use: Never Used Second Hand Smoke Exposure: No Use of substances other than those prescribed or required for medical reasons: No Have you been hit, kicked, punched, or otherwise hurt by someone within the past year? If so, by whom?: No Do you feel safe in your current relationship?: No Current Relationship Is there a partner from a previous relationship who is making you feel unsafe now?: No Are you made to feel afraid or neglected: No Advance Directives: Yes Advance Directives on File: Yes Advance Directives Date on File: 10/03/20 Recently lost weight without trying: Yes How much weight loss: 2-13 pounds Eating poorly because of decreased appetite: No Nutrition screen score: 3 Patient : No service: No Current occupational status: retired Cognitive needs: No Hearing needs: No Vision needs: No Meds Allergies Allergy/AdvReac Type Severity Reaction Status Date / Time ciprofloxacin [From CIPRO] Allergy Intermediate SHORTNESS Verified 01/23/24 11:08 OF BREATH metronidazole [From FLAGYL] Allergy Intermediate SHORTNESS Verified 01/23/24 11:08 OF BREATH aspirin [ASPIRIN] Allergy Unknown CAN'T TAKE Verified 01/23/24 11:08 BECAUSE OF BLEEDING, gi bleed, gi bleeding latex [LATEX] Allergy Unknown DIFFICULTY Verified 01/23/24 11:08 BREATHING tramadol [From ULTRAM] Allergy Unknown DIZZINESS Verified 01/23/24 11:08 Latex Allergy Unknown Unknown Uncoded 01/23/24 11:08 Latex Gloves Allergy Unknown rash Uncoded 01/23/24 11:08 Active Medications: Current Medications Heparin Sodium (Porcine) (Heparin Sodium,Porcine 5,000 Unit/Ml Vial) 5,000 unit SUBCUT Q8H SUE Last Admin: 01/23/24 17:56 Dose: 5,000 unit Sodium Bicarbonate 150 meq/ (Dextrose) 1,000 mls @ 250 mls/hr IV .Q4H [facility] Last Admin: 01/23/24 18:04 Dose: 250 mls/hr Home Medications ?Medication ?Instructions ?Recorded ?Confirmed ?Last Taken ?Type latanoprost 0.005 % eye drops 1 drp ophthalmic (eye) BEDTIME 11/15/23 01/23/24 01/21/24 History Physical Exam Vital Signs: Vital Signs: Last Vital Signs Temp 97.9 F 01/23/24 20:00 Pulse 75 01/23/24 20:00 Resp 17 01/23/24 20:00 BP 103/59 L 01/23/24 20:00 Pulse Ox 96 01/23/24 20:00 O2 Del Method Nasal Cannula 01/23/24 20:00 O2 Flow Rate 2.5 01/23/24 20:00 BMI result Body Mass Index 22.9 Const: General: no acute distress, alert, anxious and confusion (forgetful) Orientation/consciousness: oriented to person, oriented to place and confusion (forgetful) HEENT: Head: Yes other (significant edema, erythema overlying the upper right side of the face) General nose exam: Normal external nose present (Nares patent, septum midline, sinuses nontender bilaterally.) Mouth: mucous membranes dry (extremely dry) Teeth and gingiva: poor dentition Eyes: Visual Sultana: visual sultana abnormal by confrontation (pt has macular degeneration: legally blind) Periorbital: periorbital findings abnormal right periorbital swelling, periorbital tenderness and periorbital erythema Eyelids: Yes eyelid abnormality Conjunctivae: conjunctival abnormal right discharge purulent Pupils: Equal, round and reactive pupils present EOM: EOMs intact bilaterally Neck: Neck: Yes supple (no thyromegaly, trachea midline.) Carotids: normal carotid upstroke Resp: Auscultation: clear to auscultation bilaterally (normal work of breathing, no accessory muscle use) Cardio: Jugular venous distension: no JVD Rate: regular rate Rhythm: regular rhythm Heart sounds: no gallops, no murmurs and no rubs Peripheral pulses: Peripheral pulses 2+ throughout GI: Palpation (GI): Soft to palpation (nondistended.) and nontender Skin: General skin exam: erythema (Right face, right shoulder) Trauma: lacerations and/or abrasions noted (skin tears right forearm and buenrostro) Neuro: General: oriented to person, oriented to place and confusion (forgetful) Cranial nerves: Yes CN's II-XII intact bilaterally and Yes Equal, round and reactive pupils present Speech: No Abnormal speech present Psych: Speech and movement: Clear speech present Affect: Anxious affect present Attitude: cooperative Results Labs 01/24/24 05:46 01/24/24 05:46 Labs: Laboratory Results - last 24 hr 01/23/24 01/23/24 01/23/24 10:26 10:32 12:38 MCV 90.0 MCH 29.8 MCHC 33.1 RDW 14.5 Plt Count 160 D MPV 9.9 Immature Gran % (Auto) 0.3 Neut % (Auto) 83.3 H Lymph % (Auto) 6.6 L Falls % (Auto) 9.6 Eos % (Auto) 0.0 Baso % (Auto) 0.2 Lymph # (Auto) 0.7 L Falls # (Auto) 1.0 Eos # (Auto) 0.0 Baso # (Auto) 0.0 Abs Immat Gran (auto) 0.03 Absolute Neuts (auto) 9.0 H Absolute Nucleated RBC 0.000 Nucleated RBC % (auto) 0.0 PT 12.7 INR 1.0 O2 Saturation ABG pH at Pt Temp ABG pCO2 at Pt Temp ABG pO2 at Pt Temp ABG HCO3 ABG Base Excess (Actual) Anion Gap 9 L Estim Creat Clear Calc 37.7 Estimated GFR 44 Random Glucose 90 Lactic Acid 0.6 Calcium 4.6 L* D Magnesium 1.2 L* Total Bilirubin 0.4 AST 121 H ALT 28 Alkaline Phosphatase 46 Total Creatine Kinase 7743 H Troponin I High Sens 5624.4 H* B-Natriuretic Peptide 772 H Total Protein 3.0 L Albumin 1.6 L TSH 2.28 Urine Color DK YELLOW Urine Appearance Turbid Urine pH 5.5 Ur Specific [place] >= 1.030 H Urine Protein 100 (2+) H Urine Glucose (UA) Negative Urine Ketones 15 Urine Blood Moderate (2+) H Urine Nitrite Positive H Ur Leukocyte Esterase Moderate (2+) H Urine RBC 3-5 H Urine WBC >50 H Ur Squamous Epith Cells >20 Urine Bacteria 4+ Hyaline Casts 3-5 01/23/24 01/23/24 14:16 16:23 MCV MCH MCHC RDW Plt Count MPV Immature Gran % (Auto) Neut % (Auto) Lymph % (Auto) Falls % (Auto) Eos % (Auto) Baso % (Auto) Lymph # (Auto) Falls # (Auto) Eos # (Auto) Baso # (Auto) Abs Immat Gran (auto) Absolute Neuts (auto) Absolute Nucleated RBC Nucleated RBC % (auto) PT INR O2 Saturation 99.0 ABG pH at Pt Temp 7.32 L ABG pCO2 at Pt Temp 35 ABG pO2 at Pt Temp 102 ABG HCO3 18 L ABG Base Excess (Actual) -6.4 Anion Gap 15 Estim Creat Clear Calc 15.7 Estimated GFR 16 Random Glucose 152 H Lactic Acid Calcium 8.9 D Magnesium Total Bilirubin 0.6 AST 278 H ALT 64 H Alkaline Phosphatase 88 Total Creatine Kinase 51063 H Troponin I High Sens 93690.8 H* D B-Natriuretic Peptide Total Protein 5.8 L Albumin 3.0 L TSH Urine Color Urine Appearance Urine pH Ur Specific [place] Urine Protein Urine Glucose (UA) Urine Ketones Urine Blood Urine Nitrite Ur Leukocyte Esterase Urine RBC Urine WBC Ur Squamous Epith Cells Urine Bacteria Hyaline Casts Imaging Radiologist's Impressions: Impressions Cervical Spine CT 01/23/24 09:31 IMPRESSION: Head: There is swelling of the frontal scalp. The underlying calvarium is intact. There are scattered chronic small vessel ischemic changes within the periventricular white matter, basal ganglia, and thalami. No evidence of acute territorial infarct or hemorrhage. Face: There is a subtle nondisplaced acute fracture involving the right medial pterygoid process. Otherwise no acute facial fracture. 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 No temporomandibular joint dislocation. Cervical Spine: No acute cervical spine fracture and no posttraumatic spinal subluxation. Electronically signed by: Kory Latham MD 01/23/2024 05:[address] 01/23/24 09:31 IMPRESSION: 1. No acute traumatic injury. 2. Moderate emphysema. 3. Enlarged heterogeneously enhancing left thyroid gland extending into the superior mediastinum. 4. Moderate intra and extrahepatic biliary ductal dilatation. Recommend correlation with LFTs. 5. 5.4 cm heterogeneously enhancing uterine mass may be a fibroid, however recommend further evaluation with pelvic ultrasound and/or pelvic MRI. 6. 1.2 cm right adrenal nodule on the indeterminant. Electronically signed by: Randee Gillette MD 01/23/2024 04:08 PM EDT RP Face CT 01/23/24 09:31 IMPRESSION: Head: There is swelling of the frontal scalp. The underlying calvarium is intact. There are scattered chronic small vessel ischemic changes within the periventricular white matter, basal ganglia, and thalami. No evidence of acute territorial infarct or hemorrhage. Face: There is a subtle nondisplaced acute fracture involving the right medial pterygoid process. Otherwise no acute facial fracture. 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 No temporomandibular joint dislocation. Cervical Spine: No acute cervical spine fracture and no posttraumatic spinal subluxation. Electronically signed by: Kory Latham MD 01/23/2024 05:20 PM EDT RP Head CT 01/23/24 09:31 IMPRESSION: Head: There is swelling of the frontal scalp. The underlying calvarium is intact. There are scattered chronic small vessel ischemic changes within the periventricular white matter, basal ganglia, and thalami. No evidence of acute territorial infarct or hemorrhage. Face: There is a subtle nondisplaced acute fracture involving the right medial pterygoid process. Otherwise no acute facial fracture. 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 No temporomandibular joint dislocation. Cervical Spine: No acute cervical spine fracture and no posttraumatic spinal subluxation. Electronically signed by: Kory Latham MD 01/23/2024 05:20 PM EDT RP Abdomen/Pelvis CT 01/23/24 11:58 IMPRESSION: 1. No acute traumatic injury. 2. Moderate emphysema. 3. Enlarged heterogeneously enhancing left thyroid gland extending into the superior mediastinum. 4. Moderate intra and extrahepatic biliary ductal dilatation. Recommend correlation with LFTs. 5. 5.4 cm heterogeneously enhancing uterine mass may be a fibroid, however recommend further evaluation with pelvic ultrasound and/or pelvic MRI. 6. 1.2 cm right adrenal nodule on the indeterminant. Electronically signed by: Randee Gillette MD 01/23/2024 04:08 PM EDT RP Assessment and Plan (1) Rhabdomyolysis: Qualifiers: Encounter type: initial encounter Rhabdomyolysis type: traumatic Qualified Code(s): T79.6XXA - Traumatic ischemia of muscle, initial encounter Status: Acute (2) Metabolic acidosis: Status: Acute (3) Sepsis: Qualifiers: Sepsis acute organ dysfunction status: unspecified Sepsis type: sepsis due to unspecified organism Qualified Code(s): A41.9 - Sepsis, unspecified organism Status: Acute (4) Acute kidney injury: Status: Acute (5) Myocardial injury: Status: Acute (6) Hypokalemia: Status: Acute (7) UTI (urinary tract infection): Qualifiers: Hematuria presence: with hematuria Urinary tract infection type: site unspecified Qualified Code(s): N39.0 - Urinary tract infection, site not specified; R31.9 - Hematuria, unspecified Status: Acute (8) Atrial flutter: Qualifiers: Atrial flutter type: unspecified Qualified Code(s): I48.92 - Unspecified atrial flutter Status: Acute (9) Facial bone fracture: Qualifiers: Encounter type: initial encounter Facial bone/location: other facial bone Fracture type: closed Laterality: right Qualified Code(s): S02.81XA - Fracture of other specified skull and facial bones, right side, initial encounter for closed fracture Status: Acute (10) Multiple skin tears: Status: Acute (11) Fall: Qualifiers: Encounter type: subsequent encounter Qualified Code(s): W19.XXXD - Unspecified fall, subsequent encounter Status: Acute (12) Clavicle fracture: Qualifiers: Clavicle location: lateral end Encounter type: initial encounter Fracture alignment: displaced Fracture type: closed Laterality: left Qualified Code(s): S42.032A - Displaced fracture of lateral end of left clavicle, initial encounter for closed fracture Status: Acute (13) Anxiety: Status: Acute Plan 83-year-old female with history of anxiety, hypertension, venous stasis? admitted after a mechanical fall for rhabdomyolysis, metabolic acidosis,? acute renal failure,? UTI, atrial flutter. Neuro: Metabolic encephalopathy secondary to acute renal failure Cardiac:? Severe sepsis. Pt afebrile in ED, initial lactic 0.6, elevated white count. UA indicative of infection. Volume resuscitated,Ceftriaxone in ED. New onset Aflutter, rate controlled. Elevated CPK due to rhabdomyolysis. Elevated trop possibly r/t rhabdo and/or hypotension and hypovolemia. BNP 772. No previous to compare. Echo ordered. Appreciate input from cardiology.? Pulmonary: No acute issues. Renal: Rhabdomyolysis, acute renal failure with hypokalemia and metabolic acidosis.? Non oliguric. Continue bicarb drip. Continue to monitor electrolytes, renal indices and I/O. Nephrology service care appreciated. Endo: No acute issues.? GI: Transaminitis possibly due to rhabdomyolysis. Trend liver enzymes. ID: Severe Sepsis. UA indicative of UTI. Ceftriaxone, Fluid resuscitated in ED. Blood cultures, urine culture pending.?? Conjunctivitis right eye with purulent drainage. Polymixin drops ordered.? Heme/Onc: Anemia lower than baseline. No obvious signs of bleeding. Check stool occult blood.? Psych:? No acute issues. Miscellaneous: Right shoulder edematous, erythematic, tender. Right knee edematous, possible effusion. Radiology orders placed.? Multiple skin tears noted. Prophylaxis: lovenox, pneumatic hoses.? Diet: NPO Case discussed with attending Dr. Potter. Total time managing care of this patient today: 90 minutes.
--- NOTE | 2024-01-23 20:40 | PHA.MEDREC ---
Addendum entered by Ervin Rausch RPh 01/23/24 20:42: Reviewed by [facility] Original Note: Pharmacy Consult ? Medication Reconciliation Pharmacy has completed the medication reconciliation. Confirmed medications with patient daughter at bedside. She states she is unsure if her mom took her night dose of her medications last night due to them not knowing when she fell. She knows her mom was at rehab yesterday so she should of taken her morning medications at 0800 at the facility.
[2024-01-23] MEDS: Latanoprost 0.005 % Ophth Sol 2.5 ML DROPS 1 DROP EYE-BOTH (21:49)
[2024-01-23] MEDS: Morphine Sulfate 2 MG/ML CARTRIDGE 1 MG IVPUSH (22:38)
[2024-01-24] VITALS (25 sets, daily range): BP systolic 97–126; BP diastolic 52–83; PULSE 75–99; RESP 11–20; TEMP 36.1–36.7; O2SAT 91–99; BMI 23.5
--- NOTE | 2024-01-24 | ECG_ITS ---
Test Reason : reassess ECG changes Blood Pressure : / mmHG Vent. Rate : 092 BPM Atrial Rate : 300 BPM P-R Int : 000 ms QRS Dur : 072 ms QT Int : 370 ms P-R-T Axes : 070 -62 001 degrees QTc Int : 457 ms Atrial flutter with variable A-V block with premature ventricular or aberrantly conducted complexes Left axis deviation Low voltage QRS Cannot rule out Anteroseptal infarct (cited on or before 04-JUN-2017) Abnormal ECG When compared with ECG of 23-JAN-2024 18:11, No significant change was found Referred By: Sam Portillo Electronically Signed By:ELIJAH ARMENDARIZ
[2024-01-24] MEDS: Heparin Sodium,Porcine 5,000 UNIT/ML VIAL 5000 UNIT SUBCUT ×3 (01:06→16:54)
[2024-01-24] MEDS: Sodium Bicarbonate 8.4% 150 MEQ in Dextrose 5 % 850 ML 250 MEQ IV (01:28)
--- NOTE | 2024-01-24 03:31 | HO.SKINPHOTO ---
Location: Right posterior wrist Category: Skin tear Location: Right anterior wrist Category: Skin tear Location: Right distal buenrostro Category: Skin tear
[2024-01-24 05:53] LABS: VBG Base Excess 10.6 mmol/L; VBG HCO3 37 mmol/L (22-26); VBG pCO2 56 mmHg; VBG pH 7.42 (7.32-7.43); VBG pO2 24 mmHg
[2024-01-24 06:30] LABS: Hematocrit 40.6 % (37.0-47.0); Hemoglobin 13.3 g/dl (12.0-16.0); Mean Corpuscular HGB Conc 32.8 g/dl (31.0-35.0); Mean Corpuscular Hemoglobin 29.2 pg (27.0-33.0); Mean Corpuscular Volume 89.2 fL (80.0-98.0); Mean Platelet Volume 10.6 fL (9.4-12.3); Platelet Count 194 X10*3/uL (160-400); Red Blood Count 4.55 X10*6/uL (4.20-5.50); Red Cell Distribution Width 15.1 % (11.0-16.0); White Blood Count 15.6 X10*3/uL (4.8-10.8)
[2024-01-24] MEDS: Lactated Ringers 1,000 ML 150 ML IVCONT ×3 (06:30→20:22)
--- NOTE | 2024-01-24 07:00 | CA_ITS ---
Transthoracic Echocardiogram Patient (Last, First, Middle): Ni Guillermo, Gender: Female Date of : 1940 Age: 83 Procedure Date: 01/24/2024 Procedure Type: Transthoracic Echocardiogram Location: ICU Height: 172.72 cm Weight: 69.85 kg BSA: 1.83 m2 Heart Rate: 83 bpm BP: 118 / 76 mmHg Student Admissions Clerk: AISHA Referring MD: Nely Ingram ON SITE PROPERTY MANAGER Symptoms: new arrhythmia Study Quality: Adequate w/Contrast Conclusions: - Normal left ventricular cavity size. There is mildly increased left ventricular wall thickness. The left ventricular systolic function is mild to moderately decreased. The visually estimated ejection fraction is between 35-40%. - The mid inferior and mid inferolateral segments are hypokinetic. - The apex, mid anterior, apical lateral, apical septum, mid anterolateral, mid inferoseptal, and mid anteroseptal segments are akinetic. - Moderately increased right ventricular cavity size. There is moderately decreased right ventricular systolic function. Findings Procedure Information Contrast agent, definity, is being given per protocol without apparent complications. Left Ventricle Normal left ventricular cavity size. There is mildly increased left ventricular wall thickness. The left ventricular systolic function is mild to moderately decreased. The visually estimated ejection fraction is between 35-40%. There is evidence of regional wall motion abnormalities. Diastolic function is normal for age. Wall Motion Rest Echo Findings The mid inferior and mid inferolateral segments are hypokinetic. The apex, mid anterior, apical lateral, apical septum, mid anterolateral, mid inferoseptal, and mid anteroseptal segments are akinetic. Right Ventricle Moderately increased right ventricular cavity size. There is moderately decreased right ventricular systolic function. Atria The left atrium is moderately dilated. Aortic Valve Normal aortic valve structure and function. There is no aortic valve stenosis. There is no aortic valve regurgitation. Mitral Valve Likely normal mitral valve structure and function. There is no mitral valve regurgitation. There is no mitral valve stenosis. Pulmonic Valve The pulmonic valve is likely normal. Tricuspid Valve Normal tricuspid valve structure. There is mild tricuspid valve regurgitation. The right ventricular systolic pressure is 40 mmHg. Moderately elevated right atrial pressure. Mild pulmonary hypertension is present. Great Vessels All visible segments of the aorta are normal in size. Venous The inferior vena cava is dilated and collapses less than 50% with inspiration. Pericardium/Pleural There is no evidence of pericardial effusion. Prior Study Comparison No prior study available for comparison. Measurements 2D Linear Measurements IVSd: 1.01 0.6-0.9/0.6-1.0 cm LVIDd: 4.00 3.9-5.3/4.2-5.9 cm LVIDd Index: 2.19 2.4-3.2/2.2-3.1 cm/m2 LVIDs: 2.31 2.0-3.6 cm LVPWd: 1.20 0.7-1.1 cm LA Diam: 3.70 2.7-3.8/3.0-4.0 cm LAIDs Index: 2.02 1.5-2.3 cm/m2 LV Mass: 182.50 67-162/88-224 g LV Mass Index: 99.73 43-95/49-115 g/m2 LVOT Diam: 2.00 3.0+(-)1.3 cm 2D Systolic Function EF 4C: 58.00 >55% EF 2C: 58.40 >55% EF BiP: 58.90 >55% Mitral Valve MV Pk E: 0.67 MV PK A: 0.33 MV Decel Time: 92.00 E/A: 2.00 E'Lateral: 10.10 E'Medial: 7.51 E/E' Med: 8.90 E/E' Lat: 6.60 PHT: 27.00 MVA PHT: 8.15 Decel [place]: 7.28 Aortic Valve AoV Pk Percy: 1.20 AoV Mn Percy: 0.81 AoV VTI: 0.20 AoV Pk Grad: 6.00 Aov Mn Grad: 3.00 TAMI Cont.VTI: 2.21 LVOT LVOT Pk Percy: 0.80 LVOT Mn Percy: 0.56 LVOT VTI: 0.14 LVOT Pk Grad: 3.00 LVOT Mn Grad: 1.00 LVOT Diam: 2.00 LVOT Area: 3.14 Diastolic Function MV Pk E: 0.67 MV Pk A: 0.33 E/A: 2.00 E'Medial: 7.51 E/E' Med: 8.90 E' Laterial: 10.10 E/E' Lat: 6.60 Right Ventricle TAPSE (mm): 14.70 TVS' Percy: 6.31 Tricuspid Valve TR Pk Percy: 2.48 TR Pk Grad: 25.00 RA Press: 15.00 RVSP: 40.00 Great Vessels Aorta Sinus of Valsalva: 3.20 2.0-3.5 cm Ao Asc: 3.30 2.1-3.4 cm Pulmonary Valve PV Pk Percy: 0.82 Peak PV Grad: 3.00 Updated in Other Vendor System with Status of Final Sam Portillo MD electronically signed on 01/24/2024 5:12:36 PM with status of Final
[2024-01-24 07:21] LABS: Band Neutrophils Percent 18 % (3-5); Lymphocytes Percent Manual 13 % (20-40); Monocytes Absolute Manual 0.2 X10*3/uL (0.1-1.2); Monocytes Percent Manual 1 % (2-11); Neutrophils Absolute Manual 13.4 X10*3/uL (2.0-8.3); Neutrophils Percent Manual 68 % (45-73)
[2024-01-24 07:25] LABS: Acanthocytes 2+ (3-5) /OIF; Burr Cells 2+ (3-5) /OIF; RBC Morphology NOTED
[2024-01-24 07:26] LABS: Platelet Estimate NORMAL (NORMAL); Platelet Morphology Comment NORMAL; Toxic Vacuolation PRESENT
[2024-01-24 07:47] LABS: Alanine Aminotransferase 77 U/L (0-31); Albumin Level 2.7 g/dL (3.5-5.0); Alkaline Phosphatase 87 U/L (39-117); Anion Gap 18 (12-20); Aspartate Amino Transferase 281 U/L (5-31); Bilirubin Total 0.5 mg/dL (0.0-1.0); Blood Urea Nitrogen 43 mg/dL (9-16); Calcium 8.8 mg/dL (8.4-10.2); Chloride 101 mmol/L (96-108); Creatinine Clr Calc Pharmacy 15.9; Estimated Glomerular Filt Rate 16; Glucose Random 139 mg/dL (60-115); Magnesium 2.5 mg/dL (1.6-2.6); Phosphorus 3.9 mg/dL (2.7-4.5); Potassium 4.5 mmol/L (3.3-5.1); Sodium 144 mmol/L (135-145); Total Protein 5.4 g/dL (6.5-8.0)
[2024-01-24 08:03] LABS: Carbon Dioxide 31 mmol/L (22-29)
--- NOTE | 2024-01-24 08:28 | P.CONCA_ITS ---
History of Present Illness History of Present Illness Date of Service: 01/24/24 Requesting physician: Terrence Potter Chief complaint: Fall, rhabdo, + trop Narrative: 83-year-old female who presented with fall and rhabdomyolysis. She has elevated troponin level. EKGs showing atrial flutter with some concern for lateral ST elevations. She is currently in the intensive care unit. Patient is complaining of pain all over especially right foot which is bruised and was injured after the fall. I had a discussion with her daughter at bedside who said that Ni has been falling frequently and recently had clavicle fracture and went home from rehab. She said she called around 06:00 o'clock and she did not respond and then around 08:00 o'clock she called her again but she did not make the phone. Next day she went to see her and she found her on the floor. It appears she was on the floor all night. The patient does not remember what happened. She is denying chest discomfort or shortness of breath. She has significantly elevated troponin levels and CPK levels. EKGs showing atrial flutter with heart rate 92 beats per minute, leftward axis, ST elevations in 1 aVL but I think this could be due to flutter wave. [facility] Past Medical History Medical History Arthritis Tobacco use Anxiety Venous stasis dermatitis GERD (gastroesophageal reflux disease) White coat syndrome with high blood pressure but without hypertension Social History Social History Household Members: None Housing: Apartment Do you presently have visiting nurse or other home services: Yes (5hrs/week) Alcohol intake: never Patient Tobacco Use Status: Current someday Tobacco user Tobacco use type: Cigarette Cigarette Packs Per Day: 1 Cigarettes Per Day: 10 Years Smoked: 20 yrs Smoked in Last 30 Days: Yes e-Cigarette/Vaping Use: Never Used Second Hand Smoke Exposure: No Use of substances other than those prescribed or required for medical reasons: No Have you been hit, kicked, punched, or otherwise hurt by someone within the past year? If so, by whom?: No Do you feel safe in your current relationship?: No Current Relationship Is there a partner from a previous relationship who is making you feel unsafe now?: No Are you made to feel afraid or neglected: No Advance Directives: Yes Advance Directives on File: Yes Advance Directives Date on File: 10/03/20 Recently lost weight without trying: Yes How much weight loss: 2-13 pounds Eating poorly because of decreased appetite: No Nutrition screen score: 3 Patient : No service: No Current occupational status: retired Cognitive needs: No Hearing needs: No Vision needs: No Meds Allergies Allergy/AdvReac Type Severity Reaction Status Date / Time ciprofloxacin [From CIPRO] Allergy Intermediate SHORTNESS Verified 01/23/24 11:08 OF BREATH metronidazole [From FLAGYL] Allergy Intermediate SHORTNESS Verified 01/23/24 11:08 OF BREATH aspirin [ASPIRIN] Allergy Unknown CAN'T TAKE Verified 01/23/24 11:08 BECAUSE OF BLEEDING, gi bleed, gi bleeding latex [LATEX] Allergy Unknown DIFFICULTY Verified 01/23/24 11:08 BREATHING tramadol [From ULTRAM] Allergy Unknown DIZZINESS Verified 01/23/24 11:08 Latex Allergy Unknown Unknown Uncoded 01/23/24 11:08 Latex Gloves Allergy Unknown rash Uncoded 01/23/24 11:08 Active Medications: Current Medications Acetaminophen (Acetaminophen 325 Mg Tablet) 650 mg PO Q6H PRN PRN Reason: Pain, Moderate(Pain Scale 4-6) Heparin Sodium (Porcine) (Heparin Sodium,Porcine 5,000 Unit/Ml Vial) 5,000 unit SUBCUT Q8H [facility] Last Admin: 01/24/24 01:06 Dose: 5,000 unit Lactated Ringer's (Lr) 1,000 mls @ 150 mls/hr IVCONT .Q6H40M [facility] Last Admin: 01/24/24 06:30 Dose: 150 mls/hr Latanoprost (Latanoprost 0.005 % Ophth Ladi 2.5 Ml Drops) 1 drop EYE-BOTH BEDTIME [facility] Last Admin: 01/23/24 21:49 Dose: 1 drop Morphine Sulfate (Morphine Sulfate 2 Mg/Ml Cartridge) 1 mg IVPUSH Q4H PRN; Protocol PRN Reason: Pain, Severe (Pain Scale 7-10) Last Admin: 01/23/24 22:38 Dose: 1 mg Neomycin/Polymyxin/Dexamethasone (Neomy/Polymyx/Dexameth Oph Remedios 5 Ml Bottle) 1 drop EYE-RIGHT RQ4H WHILE AWAKE SUE Sodium Chloride (0.9 % Sodium Chloride Flush 3 Ml Syringe) 3 ml IVFLUSH QSHIFT SUE Last Admin: 01/24/24 00:35 Dose: Not Given Home Medications ?Medication ?Instructions ?Recorded ?Confirmed ?Last Taken ?Type latanoprost 0.005 % eye drops 1 drp ophthalmic (eye) BEDTIME 11/15/23 01/23/24 01/21/24 History Physical Exam 2 Vital Signs: Vital Signs: Last Vital Signs Temp 97.7 F 01/24/24 08:00 Pulse 76 01/24/24 08:00 Resp 13 01/24/24 08:00 BP 103/52 L 01/24/24 08:00 Pulse Ox 97 01/24/24 08:00 O2 Del Method Nasal Cannula 01/24/24 08:00 O2 Flow Rate 3 01/24/24 08:00 Oxygen Flow Rate 2.5 01/23/24 20:00 BMI result Body Mass Index 23.5 GENERAL APPEARANCE: Distressed due to pain in right foot. NECK: no jugular venous distention. SKIN: bruising right side of the face. Bruising right foot. HEART: no murmurs, regular rate and rhythm. LUNGS: clear to auscultation bilaterally. ABDOMEN: soft, nontender. EXTREMITIES: no edema. PERIPHERAL PULSES: equal. NEUROLOGIC: No gross deficits, AAO X 3 Objective Labs and Meds 01/24/24 05:46 01/24/24 05:46 Lab results: Laboratory Results - last 24 hr 01/23/24 01/23/24 01/23/24 10:26 10:32 12:38 WBC 10.8 RBC 3.29 L D Hgb 9.8 L D Hct 29.6 L D MCV 90.0 MCH 29.8 MCHC 33.1 RDW 14.5 Plt Count 160 D MPV 9.9 Immature Gran % (Auto) 0.3 Neut % (Auto) 83.3 H Lymph % (Auto) 6.6 L [place] % (Auto) 9.6 Eos % (Auto) 0.0 Baso % (Auto) 0.2 Lymph # (Auto) 0.7 L [place] # (Auto) 1.0 Eos # (Auto) 0.0 Baso # (Auto) 0.0 Abs Immat Gran (auto) 0.03 Absolute Neuts (auto) 9.0 H Absolute Nucleated RBC 0.000 Nucleated RBC % (auto) 0.0 Neutrophils % (Manual) Band Neutrophils % Lymphocytes % (Manual) Monocytes % (Manual) Abs Neuts (Manual) Lymphocytes # (Manual) Monocytes # (Manual) Toxic Vacuolation Platelet Estimate Plt Morphology Comment RBC Morphology Altagracia Cells Acanthocytes (Spur) PT 12.7 INR 1.0 O2 Saturation ABG pH at Pt Temp ABG pCO2 at Pt Temp ABG pO2 at Pt Temp ABG HCO3 ABG Base Excess (Actual) VBG pH VBG pCO2 VBG pO2 VBG HCO3 VBG O2 Saturation VBG Base Excess Sodium 148 H Potassium 2.2 L* D Chloride 130 H D Carbon Dioxide 10 L* D Anion Gap 9 L BUN 23 H Creatinine 1.18 Estim Creat Clear Calc 37.7 Estimated GFR 44 Random Glucose 90 Lactic Acid 0.6 Calcium 4.6 L* D Phosphorus Magnesium 1.2 L* Total Bilirubin 0.4 AST 121 H ALT 28 Alkaline Phosphatase 46 Total Creatine Kinase 7743 H Troponin I High Sens 5624.4 H* B-Natriuretic Peptide 772 H Total Protein 3.0 L Albumin 1.6 L TSH 2.28 Urine Color DK YELLOW Urine Appearance Turbid Urine pH 5.5 Ur Specific Raymond >= 1.030 H Urine Protein 100 (2+) H Urine Glucose (UA) Negative Urine Ketones 15 Urine Blood Moderate (2+) H Urine Nitrite Positive H Ur Leukocyte Esterase Moderate (2+) H Urine RBC 3-5 H Urine WBC >50 H Ur Squamous Epith Cells >20 Urine Bacteria 4+ Hyaline Casts 3-5 01/23/24 01/23/24 01/24/24 14:16 16:23 05:43 WBC RBC Hgb Hct MCV MCH MCHC RDW Plt Count MPV Immature Gran % (Auto) Neut % (Auto) Lymph % (Auto) [place] % (Auto) Eos % (Auto) Baso % (Auto) Lymph # (Auto) [place] # (Auto) Eos # (Auto) Baso # (Auto) Abs Immat Gran (auto) Absolute Neuts (auto) Absolute Nucleated RBC Nucleated RBC % (auto) Neutrophils % (Manual) Band Neutrophils % Lymphocytes % (Manual) Monocytes % (Manual) Abs Neuts (Manual) Lymphocytes # (Manual) Monocytes # (Manual) Toxic Vacuolation Platelet Estimate Plt Morphology Comment RBC Morphology Moran Cells Acanthocytes (Spur) PT INR O2 Saturation 99.0 ABG pH at Pt Temp 7.32 L ABG pCO2 at Pt Temp 35 ABG pO2 at Pt Temp 102 ABG HCO3 18 L ABG Base Excess (Actual) -6.4 VBG pH 7.42 VBG pCO2 56 VBG pO2 24 VBG HCO3 37 H VBG O2 Saturation 32.0 VBG Base Excess 10.6 Sodium 142 Potassium 4.5 D Chloride 113 H Carbon Dioxide 19 L Anion Gap 15 BUN 42 H Creatinine 2.83 H Estim Creat Clear Calc 15.7 Estimated GFR 16 Random Glucose 152 H Lactic Acid Calcium 8.9 D Phosphorus Magnesium Total Bilirubin 0.6 AST 278 H ALT 64 H Alkaline Phosphatase 88 Total Creatine Kinase 55814 H Troponin I High Sens 30501.8 H* D B-Natriuretic Peptide Total Protein 5.8 L Albumin 3.0 L TSH Urine Color Urine Appearance Urine pH Ur Specific Raymond Urine Protein Urine Glucose (UA) Urine Ketones Urine Blood Urine Nitrite Ur Leukocyte Esterase Urine RBC Urine WBC Ur Squamous Epith Cells Urine Bacteria Hyaline Casts 01/24/24 05:46 WBC 15.6 H RBC 4.55 D Hgb 13.3 D Hct 40.6 D MCV 89.2 MCH 29.2 MCHC 32.8 RDW 15.1 Plt Count 194 MPV 10.6 Immature Gran % (Auto) Cancelled Neut % (Auto) Cancelled Lymph % (Auto) Cancelled [place] % (Auto) Cancelled Eos % (Auto) Cancelled Baso % (Auto) Cancelled Lymph # (Auto) Cancelled [place] # (Auto) Cancelled Eos # (Auto) Cancelled Baso # (Auto) Cancelled Abs Immat Gran (auto) Cancelled Absolute Neuts (auto) Cancelled Absolute Nucleated RBC 0.000 Nucleated RBC % (auto) 0.0 Neutrophils % (Manual) 68 Band Neutrophils % 18 H Lymphocytes % (Manual) 13 L Monocytes % (Manual) 1 L Abs Neuts (Manual) 13.4 H Lymphocytes # (Manual) 2.0 Monocytes # (Manual) 0.2 Toxic Vacuolation PRESENT Platelet Estimate NORMAL Plt Morphology Comment NORMAL RBC Morphology NOTED Altagracia Cells 2+ (3-5) Acanthocytes (Spur) 2+ (3-5) PT INR O2 Saturation ABG pH at Pt Temp ABG pCO2 at Pt Temp ABG pO2 at Pt Temp ABG HCO3 ABG Base Excess (Actual) VBG pH VBG pCO2 VBG pO2 VBG HCO3 VBG O2 Saturation VBG Base Excess Sodium 144 Potassium 4.5 Chloride 101 Carbon Dioxide 31 H Anion Gap 18 BUN 43 H Creatinine 2.79 H Estim Creat Clear Calc 15.9 Estimated GFR 16 Random Glucose 139 H Lactic Acid Calcium 8.8 Phosphorus 3.9 Magnesium 2.5 Total Bilirubin 0.5 AST 281 H ALT 77 H Alkaline Phosphatase 87 Total Creatine Kinase Troponin I High Sens 9724.6 H* B-Natriuretic Peptide Total Protein 5.4 L Albumin 2.7 L TSH Urine Color Urine Appearance Urine pH Ur Specific Raymond Urine Protein Urine Glucose (UA) Urine Ketones Urine Blood Urine Nitrite Ur Leukocyte Esterase Urine RBC Urine WBC Ur Squamous Epith Cells Urine Bacteria Hyaline Casts Imaging Radiologist's impression: Impressions Cervical Spine CT 01/23/24 09:31 IMPRESSION: Head: There is swelling of the frontal scalp. The underlying calvarium is intact. There are scattered chronic small vessel ischemic changes within the periventricular white matter, basal ganglia, and thalami. No evidence of acute territorial infarct or hemorrhage. Face: There is a subtle nondisplaced acute fracture involving the right medial pterygoid process. Otherwise no acute facial fracture. 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 No temporomandibular joint dislocation. Cervical Spine: No acute cervical spine fracture and no posttraumatic spinal subluxation. Electronically signed by: Kory Latham MD 01/23/2024 05:[address] 01/23/24 09:31 IMPRESSION: 1. No acute traumatic injury. 2. Moderate emphysema. 3. Enlarged heterogeneously enhancing left thyroid gland extending into the superior mediastinum. 4. Moderate intra and extrahepatic biliary ductal dilatation. Recommend correlation with LFTs. 5. 5.4 cm heterogeneously enhancing uterine mass may be a fibroid, however recommend further evaluation with pelvic ultrasound and/or pelvic MRI. 6. 1.2 cm right adrenal nodule on the indeterminant. Electronically signed by: Randee Gillette MD 01/23/2024 04:[address] 01/23/24 09:31 IMPRESSION: Head: There is swelling of the frontal scalp. The underlying calvarium is intact. There are scattered chronic small vessel ischemic changes within the periventricular white matter, basal ganglia, and thalami. No evidence of acute territorial infarct or hemorrhage. Face: There is a subtle nondisplaced acute fracture involving the right medial pterygoid process. Otherwise no acute facial fracture. 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 No temporomandibular joint dislocation. Cervical Spine: No acute cervical spine fracture and no posttraumatic spinal subluxation. Electronically signed by: Kory Latham MD 01/23/2024 05:20 PM EDT RP Head CT 01/23/24 09:31 IMPRESSION: Head: There is swelling of the frontal scalp. The underlying calvarium is intact. There are scattered chronic small vessel ischemic changes within the periventricular white matter, basal ganglia, and thalami. No evidence of acute territorial infarct or hemorrhage. Face: There is a subtle nondisplaced acute fracture involving the right medial pterygoid process. Otherwise no acute facial fracture. 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 No temporomandibular joint dislocation. Cervical Spine: No acute cervical spine fracture and no posttraumatic spinal subluxation. Electronically signed by: Kory Latham MD 01/23/2024 05:20 PM EDT RP Abdomen/Pelvis CT 01/23/24 11:58 IMPRESSION: 1. No acute traumatic injury. 2. Moderate emphysema. 3. Enlarged heterogeneously enhancing left thyroid gland extending into the superior mediastinum. 4. Moderate intra and extrahepatic biliary ductal dilatation. Recommend correlation with LFTs. 5. 5.4 cm heterogeneously enhancing uterine mass may be a fibroid, however recommend further evaluation with pelvic ultrasound and/or pelvic MRI. 6. 1.2 cm right adrenal nodule on the indeterminant. Electronically signed by: Randee Gillette MD 01/23/2024 04:08 PM EDT RP Assessment and Plan (1) Rhabdomyolysis: Qualifiers: Encounter type: initial encounter Rhabdomyolysis type: traumatic Q ualified Code(s): T79.6XXA - Traumatic ischemia of muscle, initial encounter Status: Acute (2) Elevated troponin: Status: Acute Plan [age] female presenting with fall and rhabdomyolysis. She has renal injury as well as significantly elevated CPK levels. Troponins were elevated to 18,000 and are trending downward. EKGs showing atrial flutter. There is some concern for lateral ST elevations but I think these changes are due to atrial flutter wave. Clinically denying any chest discomfort shortness of breath. We will check echocardiogram to assess LV function and wall motion. Hydration and close monitoring of kidney function. She lives by herself and has fallen multiple times. Not a good candidate for anticoagulation currently. She also has history of GI bleed as she has an allergy listed to aspirin that she had GI bleed. Discussed with daughter at bedside in great detail. Thank you for allowing me to participate in the care of your patient. Please feel free to contact me if you have any questions. Procedures Date of Service Date of Service: 01/24/24
[2024-01-24] MEDS: 0.9 % Sodium Chloride Flush 3 ML SYRINGE IVFLUSH ×3 (08:32→23:46)
[2024-01-24] MEDS: NeoMY/Polymyx/Dexameth Oph Sus 5 ML BOTTLE 1 DROP EYE-RIGHT ×4 (08:33→20:15)
[2024-01-24] MEDS: Morphine Sulfate 2 MG/ML CARTRIDGE 1 MG IVPUSH ×4 (09:32→23:45)
--- NOTE | 2024-01-24 10:23 | P.PNCC_ITS ---
Subjective Subjective Date of Service: 01/24/24 Interval History: 83-year-old lady, legally blind, underlying hypertension and recent clavicle fracture admitted after mechanical fall that patient sustained day after discharge from rehab facility. She remain on the floor food least 12 hours before found by her daughter and brought to [facility] ER for evaluation. On ER evaluation patient with rhabdomyolysis resulting in acute renal failure with metabolic acidosis, elevated troponin levels, but no acute ST changes, UTI with prior history of Proteus UTI. CT head significant for nondisplaced acute fracture involving the right medial pterygoid process. Patient started on bicarbonate drip and admitted to the intensive care unit. No events overnight. CPK peaked and is down treating. Renal function is improving. Metabolic acidosis resolved. Critical Care Time (minutes): 0 Physical Exam 2 Vital Signs: Vital Signs: Last Vital Signs Temp 97.9 F 01/24/24 10:00 Pulse 85 01/24/24 10:00 Resp 16 01/24/24 10:00 BP 118/83 01/24/24 10:00 Pulse Ox 95 01/24/24 10:00 O2 Del Method Nasal Cannula 01/24/24 10:00 O2 Flow Rate 3 01/24/24 10:00 Oxygen Flow Rate 2.5 01/23/24 20:00 BMI result Body Mass Index 23.5 Const: General: no acute distress, alert and awake HEENT: Other: Contusion of the right upper face Eyes: Sclerae: sclerae normal EOM: EOMs intact bilaterally Neck: Neck: Yes no lymphadenopathy, Yes trachea midline and Yes supple Resp: Effort & Inspection: normal respiratory effort and no respiratory distress Auscultation: clear to auscultation bilaterally Cardio: Rate: regular rate Rhythm: abnormal rhythm regularly irregular H eart sounds: no gallops, no murmurs and no rubs GI: Palpation (GI): Soft to palpation and Other GI palpation findings present ( Nontender) Auscultation: normal bowel sounds Extrem: Other: Right lower extremity externally rotating, swollen knee/hip General: Yes no pedal edema, No clubbing and No cyanosis Objective Data Labs 01/24/24 05:46 01/24/24 05:46 Labs: Laboratory Results - last 24 hr 01/23/24 01/23/24 01/23/24 10:26 10:32 12:38 WBC 10.8 RBC 3.29 L D Hgb 9.8 L D Hct 29.6 L D MCV 90.0 MCH 29.8 MCHC 33.1 RDW 14.5 Plt Count 160 D MPV 9.9 Immature Gran % (Auto) 0.3 Neut % (Auto) 83.3 H Lymph % (Auto) 6.6 L [place]borne % (Auto) 9.6 Eos % (Auto) 0.0 Baso % (Auto) 0.2 Lymph # (Auto) 0.7 L [place] # (Auto) 1.0 Eos # (Auto) 0.0 Baso # (Auto) 0.0 Abs Immat Gran (auto) 0.03 Absolute Neuts (auto) 9.0 H Absolute Nucleated RBC 0.000 Nucleated RBC % (auto) 0.0 Neutrophils % (Manual) Band Neutrophils % Lymphocytes % (Manual) Monocytes % (Manual) Abs Neuts (Manual) Lymphocytes # (Manual) Monocytes # (Manual) Toxic Vacuolation Platelet Estimate Plt Morphology Comment RBC Morphology [place] Cells Acanthocytes (Spur) PT 12.7 INR 1.0 O2 Saturation ABG pH at Pt Temp ABG pCO2 at Pt Temp ABG pO2 at Pt Temp ABG HCO3 ABG Base Excess (Actual) VBG pH VBG pCO2 VBG pO2 VBG HCO3 VBG O2 Saturation VBG Base Excess Sodium 148 H Potassium 2.2 L* D Chloride 130 H D Carbon Dioxide 10 L* D Anion Gap 9 L BUN 23 H Creatinine 1.18 Estim Creat Clear Calc 37.7 Estimated GFR 44 Random Glucose 90 Lactic Acid 0.6 Calcium 4.6 L* D Phosphorus Magnesium 1.2 L* Total Bilirubin 0.4 AST 121 H ALT 28 Alkaline Phosphatase 46 Total Creatine Kinase 7743 H Troponin I High Sens 5624.4 H* B-Natriuretic Peptide 772 H Total Protein 3.0 L Albumin 1.6 L TSH 2.28 Urine Color DK YELLOW Urine Appearance Turbid Urine pH 5.5 Ur Specific [place] >= 1.030 H Urine Protein 100 (2+) H Urine Glucose (UA) Negative Urine Ketones 15 Urine Blood Moderate (2+) H Urine Nitrite Positive H Ur Leukocyte Esterase Moderate (2+) H Urine RBC 3-5 H Urine WBC >50 H Ur Squamous Epith Cells >20 Urine Bacteria 4+ Hyaline Casts 3-5 01/23/24 01/23/24 01/24/24 14:16 16:23 05:43 WBC RBC Hgb Hct MCV MCH MCHC RDW Plt Count MPV Immature Gran % (Auto) Neut % (Auto) Lymph % (Auto) Osborne % (Auto) Eos % (Auto) Baso % (Auto) Lymph # (Auto) Osborne # (Auto) Eos # (Auto) Baso # (Auto) Abs Immat Gran (auto) Absolute Neuts (auto) Absolute Nucleated RBC Nucleated RBC % (auto) Neutrophils % (Manual) Band Neutrophils % Lymphocytes % (Manual) Monocytes % (Manual) Abs Neuts (Manual) Lymphocytes # (Manual) Monocytes # (Manual) Toxic Vacuolation Platelet Estimate Plt Morphology Comment RBC Morphology [place] Cells Acanthocytes (Spur) PT INR O2 Saturation 99.0 ABG pH at Pt Temp 7.32 L ABG pCO2 at Pt Temp 35 ABG pO2 at Pt Temp 102 ABG HCO3 18 L ABG Base Excess (Actual) -6.4 VBG pH 7.42 VBG pCO2 56 VBG pO2 24 VBG HCO3 37 H VBG O2 Saturation 32.0 VBG Base Excess 10.6 Sodium 142 Potassium 4.5 D Chloride 113 H Carbon Dioxide 19 L Anion Gap 15 BUN 42 H Creatinine 2.83 H Estim Creat Clear Calc 15.7 Estimated GFR 16 Random Glucose 152 H Lactic Acid Calcium 8.9 D Phosphorus Magnesium Total Bilirubin 0.6 AST 278 H ALT 64 H Alkaline Phosphatase 88 Total Creatine Kinase 26425 H Troponin I High Sens 28020.8 H* D B-Natriuretic Peptide Total Protein 5.8 L Albumin 3.0 L TSH Urine Color Urine Appearance Urine pH Ur Specific [place] Urine Protein Urine Glucose (UA) Urine Ketones Urine Blood Urine Nitrite Ur Leukocyte Esterase Urine RBC Urine WBC Ur Squamous Epith Cells Urine Bacteria Hyaline Casts 01/24/24 05:46 WBC 15.6 H RBC 4.55 D Hgb 13.3 D Hct 40.6 D MCV 89.2 MCH 29.2 MCHC 32.8 RDW 15.1 Plt Count 194 MPV 10.6 Immature Gran % (Auto) Cancelled Neut % (Auto) Cancelled Lymph % (Auto) Cancelled [place] % (Auto) Cancelled Eos % (Auto) Cancelled Baso % (Auto) Cancelled Lymph # (Auto) Cancelled [place]borne # (Auto) Cancelled Eos # (Auto) Cancelled Baso # (Auto) Cancelled Abs Immat Gran (auto) Cancelled Absolute Neuts (auto) Cancelled Absolute Nucleated RBC 0.000 Nucleated RBC % (auto) 0.0 Neutrophils % (Manual) 68 Band Neutrophils % 18 H Lymphocytes % (Manual) 13 L Monocytes % (Manual) 1 L Abs Neuts (Manual) 13.4 H Lymphocytes # (Manual) 2.0 Monocytes # (Manual) 0.2 Toxic Vacuolation PRESENT Platelet Estimate NORMAL Plt Morphology Comment NORMAL RBC Morphology NOTED Altagracia Cells 2+ (3-5) Acanthocytes (Spur) 2+ (3-5) PT INR O2 Saturation ABG pH at Pt Temp ABG pCO2 at Pt Temp ABG pO2 at Pt Temp ABG HCO3 ABG Base Excess (Actual) VBG pH VBG pCO2 VBG pO2 VBG HCO3 VBG O2 Saturation VBG Base Excess Sodium 144 Potassium 4.5 Chloride 101 Carbon Dioxide 31 H Anion Gap 18 BUN 43 H Creatinine 2.79 H Estim Creat Clear Calc 15.9 Estimated GFR 16 Random Glucose 139 H Lactic Acid Calcium 8.8 Phosphorus 3.9 Magnesium 2.5 Total Bilirubin 0.5 AST 281 H ALT 77 H Alkaline Phosphatase 87 Total Creatine Kinase 85235 H Troponin I High Sens 9724.6 H* B-Natriuretic Peptide Total Protein 5.4 L Albumin 2.7 L TSH Urine Color Urine Appearance Urine pH Ur Specific [place] Urine Protein Urine Glucose (UA) Urine Ketones Urine Blood Urine Nitrite Ur Leukocyte Esterase Urine RBC Urine WBC Ur Squamous Epith Cells Urine Bacteria Hyaline Casts Microbiology Microbiology Results: Microbiology 01/23/24 Unknown Urine Catheterized - Dsouza Catheter Urine Culture - Preliminary Gram negative mert Progress Note: A&P Assessment and plan (1) Rhabdomyolysis: Status: Acute (2) Acute kidney injury: Status: Acute (3) Atrial flutter: Status: Acute (4) Myocardial injury: Status: Acute (5) Facial bone fracture: Status: Acute Plan Assessment: 83-year-old lady admitted after mechanical fall remaining on the for a prolonged period of time with resultant rhabdomyolysis/NICKO/metabolic acidosis and NSTEMI Plan: Neuro: No acute issues. Cardiac: NSTEMI with a flutter. 2D echo is pending. Cardiology service care appreciated. Pulmonary: No acute issues. Renal: NICKO secondary to rhabdomyolysis after fall with metabolic acidosis. Acidosis resolved. NICKO is improving. Non oliguric. Continue to monitor renal indices and urine output. Endo: No acute issues. GI: No acute issues. ID: No acute issues Heme/Onc: No acute issues. Psych: No acute issues. Miscellaneous: Right pterygoid process fracture, continue soft of diet. Right leg externally rotated, images are pending. Prophylaxis: Heparin Diet: Soft Quality Stroke Does the patient have a stroke diagnosis?: No VTE Prior VTE?: No VTE Risk Level:: Medical - moderate - high VTE Device Contraindication: Treatment Not Indicated VTE Drug Contraindication: N/A - Med Ordered
[2024-01-24] MEDS: fentaNYL citrate/PF 100 MCG/2 ML VIAL 25 MCG IVPUSH (11:11)
[2024-01-24] MEDS: cefTRIAXone sodium 1 GM in 0.9 % Sodium Chloride 50 ML IV (11:24)
--- NOTE | 2024-01-24 12:46 | MHC.CM.PN ---
Met w/pt and dtr to review d/c planning needs: pt just d/c'd from [facility] on 01/21: fell at home and dtr found pt the next morning on the floor. Pt was established w/[facility] for 5 hours of [facility] care per week, uses a walker or cane and has support from her dtr for transportation/shopping, etc. Pt is very determined to return to home but states this fall was scary and would like to return to [facility] for a brief stay. Referral made. [facility] and HCP on file. CM to follow
--- NOTE | 2024-01-24 12:48 | PM.EVENT ---
Event Note Date of Service: 01/24/24 Event Note: X-rays reviewed of right tib/fib and knee -Right tibial plateau fracture -Right tib/fib fracture Right knee CT scan ordered to evaluate tibial plateau fracture level of depression Right tib/fib - Recommendation for a short leg posterior splint NWB RLE Follow up out patient No acute orthopedic intervention is warranted at this time Time Spent With Patient Time: Total time managing care of this patient today ____ minutes.
--- NOTE | 2024-01-24 13:06 | PM.EVENT ---
Event Note Date of Service: 01/24/24 Event Note: 83/F with GERD, anxiety, stasis dermatitis, frequent falls with recent left clavicular fracture and was at a rehab and discharged just the day before. She was found on the floor face down for undertermined period.. 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 Portillo ? relaed to afib, rhabo -echo and outpatient testing AFIB--rate is controlled -if needed metoprolol or cardizem -not candiate for anticoagulation d/t falls, hisory of gi bleeding, and presentlyhas scalp hematoma--Dr. Portillo discussed with daughter Right tibial plateau fracture Right tib/fib fracture -seen by Ortho Recommendation - a short leg posterior splint - NWB RLE -Follow up out patient Right pterygoid process fracture-- Soft diet Falls, was just dc from rehab the day before -PT eval and definatrely need to return to the rehab DVT prophylaxis--heparin Full code Time Spent With Patient Time: Total time managing care of this patient today ____ minutes.
[2024-01-24 18:12] LABS: Venous Blood Gas Refer to POC result
--- NOTE | 2024-01-24 19:23 | PC.NURSE ---
Okay to keep maciel in place upon transfer to [facility] per Nely Ingram RESEARCH ASSOCIATE PROFESSOR due to right lower extremity immobilization pending Ortho Consult
--- NOTE | 2024-01-24 19:25 | PC.NURSE ---
patient alert and oriented, forgetful at times and legally blind so unable to reorient herself using visual cues but asks appropriate questions. She c/o pain intermittently all over but especially to L shoulder with known fx and daughter stating it seems worse since most recent fall. R knee extending to entire lower leg and foot/ankle. Leg appears externally rotated. She also has continues pain with new bruise from most recent fall to R shoulder. Xray was ordered for R shoulder previous to this shift. Dr. Potter aware of R leg and L shoulder with imaging orders added for both. Pt sent for CT scan R knee which is swollen and bruised. She tolerated well. ED MD came to apply splint to R ankle. Pt tolerated moderately well and IV morphine given as procedure started for improved comfort. Dsouza cath continues to drain dark yellow foul smelling urine wtih large amounts sediment. starting to clear a bit this evening. Daughter at bedside updated as events occurred.
--- NOTE | 2024-01-24 19:40 | HO.SKINPHOTO ---
Location: Category: Stage: Length: 2cm Width: 1.4 Depth: slightlly raised cm
[2024-01-24] MEDS: Latanoprost 0.005 % Ophth Sol 2.5 ML DROPS 1 DROP EYE-BOTH (20:15)
[2024-01-25] VITALS (11 sets, daily range): BP systolic 98–126; BP diastolic 53–70; PULSE 93–99; RESP 12–20; TEMP 36.1–37.2; O2SAT 93–99; BMI 23.9
[2024-01-25] MEDS: HYDROmorphone HCl 0.5 MG/0.5 ML SYRINGE IVPUSH ×6 (00:13→22:07)
[2024-01-25] MEDS: Heparin Sodium,Porcine 5,000 UNIT/ML VIAL 5000 UNIT SUBCUT ×3 (00:19→16:14)
[2024-01-25 02:58] LABS: OBS Int Ctl Valid YES; OBS1 POSITIVE (NEGATIVE)
[2024-01-25] MEDS: Lactated Ringers 1,000 ML 150 ML IVCONT ×2 (03:01→09:32)
[2024-01-25 06:18] LABS: Albumin Level 2.4 g/dL (3.5-5.0); Anion Gap 11 (12-20); Blood Urea Nitrogen 35 mg/dL (9-16); Calcium 8.5 mg/dL (8.4-10.2); Carbon Dioxide 31 mmol/L (22-29); Chloride 101 mmol/L (96-108); Creatinine Clr Calc Pharmacy 29.4; Estimated Glomerular Filt Rate 33; Glucose Random 110 mg/dL (60-115); Phosphorus 3.4 mg/dL (2.7-4.5); Potassium 3.5 mmol/L (3.3-5.1); Sodium 139 mmol/L (135-145)
[2024-01-25 06:27] LABS: Hematocrit 35.9 % (37.0-47.0); Hemoglobin 11.7 g/dl (12.0-16.0); Mean Corpuscular HGB Conc 32.6 g/dl (31.0-35.0); Mean Corpuscular Hemoglobin 29.4 pg (27.0-33.0); Mean Corpuscular Volume 90.2 fL (80.0-98.0); Mean Platelet Volume 11.1 fL (9.4-12.3); Platelet Count 176 X10*3/uL (160-400); Red Blood Count 3.98 X10*6/uL (4.20-5.50); Red Cell Distribution Width 14.9 % (11.0-16.0); White Blood Count 11.4 X10*3/uL (4.8-10.8)
[2024-01-25 07:42] LABS: Band Neutrophils Percent 4 % (3-5); Lymphocytes Absolute Manual 1.3 X10*3/uL (1.2-4.9); Lymphocytes Percent Manual 11 % (20-40); Monocytes Absolute Manual 0.7 X10*3/uL (0.1-1.2); Monocytes Percent Manual 6 % (2-11); Neutrophils Absolute Manual 9.5 X10*3/uL (2.0-8.3); Neutrophils Percent Manual 79 % (45-73)
[2024-01-25 07:43] LABS: Basophilic Stippling 1+ (0-2) /OIF; Burr Cells 1+ (0-2) /OIF; Large Platelet PRESENT; Platelet Estimate NORMAL (NORMAL); Platelet Morphology Comment NOTED; RBC Morphology NOTED
[2024-01-25] MEDS: 0.9 % Sodium Chloride Flush 3 ML SYRINGE IVFLUSH ×3 (07:43→22:15)
[2024-01-25] MEDS: NeoMY/Polymyx/Dexameth Oph Sus 5 ML BOTTLE 1 DROP EYE-RIGHT ×4 (07:44→22:18)
[2024-01-25] MEDS: cefTRIAXone sodium 1 GM in 0.9 % Sodium Chloride 50 ML IV (11:08)
--- NOTE | 2024-01-25 11:48 | HO.PM.IMPN ---
Subjective Subjective Date of Service: 01/25/24 Interval History: seen and examined. no new complaints Physical Exam Vital Signs: Vital Signs: Last Vital Signs Temp 98.4 F 01/25/24 08:00 Pulse 93 01/25/24 08:07 Resp 17 01/25/24 08:07 BP 98/53 L 01/25/24 08:00 Pulse Ox 94 01/25/24 08:00 O2 Del Method Nasal Cannula 01/25/24 08:00 O2 Flow Rate 1 01/25/24 08:00 Oxygen Flow Rate 2.5 01/23/24 20:00 BMI result Body Mass Index 23.9 Const: Other: General - no acute distress, appears comfortable; right upper face contusion Cardiovascular - regular rate and rhythm, S1-S2 Lungs - normal respiratory effort, clear to auscultation bilaterally, no wheezing Abdomen - soft, nontender, no rebound or guarding Extremities - RLE in brace/splint Neuro - awake and alert, no focal deficits Objective Data Active Medications Acetaminophen (Acetaminophen 325 Mg Tablet) 650 mg PO Q6H PRN PRN Reason: Pain, Moderate(Pain Scale 4-6) Heparin Sodium (Porcine) (Heparin Sodium,Porcine 5,000 Unit/Ml Vial) 5,000 unit SUBCUT Q8H [facility] Last Admin: 01/25/24 07:58 Dose: 5,000 unit Documented By: DIANNE Hydromorphone HCl (Hydromorphone Hcl 0.5 Mg/0.5 Ml Syringe) 0.5 mg IVPUSH Q3H PRN; Protocol PRN Reason: severe pain Last Admin: 01/25/24 07:37 Dose: 0.5 mg Documented By: DIANNE Lactated Ringer's (Lr) 1,000 mls @ 150 mls/hr IVCONT .Q6H40M [facility] Last Admin: 01/25/24 09:32 Dose: 150 mls/hr Documented By: DIANNE Ceftriaxone Sodium 1 gm/ (Sodium Chloride) 50 mls @ 100 mls/hr IV Q24H [facility] Last Infusion: 01/25/24 11:41 Dose: Infused Documented By: DIANNE Latanoprost (Latanoprost 0.005 % Ophth Ladi 2.5 Ml Drops) 1 drop EYE-BOTH BEDTIME [facility] Last Admin: 01/24/24 20:15 Dose: 1 drop Documented By: YULISAUMJULIA Neomycin/Polymyxin/Dexamethasone (Neomy/Polymyx/Dexameth Oph Remedios 5 Ml Bottle) 1 drop EYE-RIGHT RQ4H WHILE AWAKE [facility] Last Admin: 01/25/24 11:12 Dose: 1 drop Documented By: DIANNE Sodium Chloride (0.9 % Sodium Chloride Flush 3 Ml Syringe) 3 ml IVFLUSH QSHIFT [facility] Last Admin: 01/25/24 07:43 Dose: 3 ml Documented By: DIANNE Labs 01/25/24 05:50 01/25/24 05:50 Labs: Laboratory Results - last 24 hr 01/25/24 01/25/24 01:18 05:50 MCV 90.2 MCH 29.4 MCHC 32.6 RDW 14.9 Plt Count 176 MPV 11.1 Immature Gran % (Auto) Cancelled Neut % (Auto) Cancelled Lymph % (Auto) Cancelled [place] % (Auto) Cancelled Eos % (Auto) Cancelled Baso % (Auto) Cancelled Lymph # (Auto) Cancelled [place] # (Auto) Cancelled Eos # (Auto) Cancelled Baso # (Auto) Cancelled Abs Immat Gran (auto) Cancelled Absolute Neuts (auto) Cancelled Absolute Nucleated RBC 0.000 Nucleated RBC % (auto) 0.0 Neutrophils % (Manual) 79 H Band Neutrophils % 4 Lymphocytes % (Manual) 11 L Monocytes % (Manual) 6 Abs Neuts (Manual) 9.5 H Lymphocytes # (Manual) 1.3 Monocytes # (Manual) 0.7 Platelet Estimate NORMAL Large Platelets PRESENT Plt Morphology Comment NOTED RBC Morphology NOTED Basophilic Stippling 1+ (0-2) [place] Cells 1+ (0-2) Anion Gap 11 L Estim Creat Clear Calc 29.4 Estimated GFR 33 Random Glucose 110 Calcium 8.5 Phosphorus 3.4 Magnesium 2.0 Total Creatine Kinase 5804 H Albumin 2.4 L Stool Occult Blood POSITIVE Microbiology Microbiology Results: Microbiology 01/23/24 Unknown Urine Culture - Preliminary Urine Catheterized - Dsouza Catheter Gram negative mert 01/23/24 10:32 Blood Culture - Preliminary Blood - Venous No growth after 24 hours. 01/23/24 10:26 Blood Culture - Preliminary Blood - Venous No growth after 24 hours. Assessment and Plan (1) Rhabdomyolysis: Status: Acute Plan 83/F with GERD, anxiety, stasis dermatitis, frequent falls with recent left clavicular fracture and was at a rehab and discharged just the day before. She was found on the floor face down for undertermined period.. 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 Portillo discussed with daughter Right tibial plateau fracture Right tib/fib fracture -seen by Ortho Recommendation - a short leg posterior splint - NWB RLE -Follow up out patient Right pterygoid process fracture-- Soft diet Falls, was just dc from rehab the day before -PT eval and definatrely need to return to the rehab DVT prophylaxis--heparin Full code Quality Stroke Does the patient have a stroke diagnosis?: No VTE Prior VTE?: No VTE Risk Level:: Medical - moderate - high VTE Device Contraindication: Treatment Not Indicated VTE Drug Contraindication: N/A - Med Ordered
[2024-01-25] MEDS: Latanoprost 0.005 % Ophth Sol 2.5 ML DROPS 1 DROP EYE-BOTH (22:18)
[2024-01-26] VITALS (8 sets, daily range): BP systolic 109–122; BP diastolic 53–70; PULSE 88–96; RESP 18–20; TEMP 36.1–36.6; O2SAT 93–97; BMI 25.7
[2024-01-26] MEDS: Heparin Sodium,Porcine 5,000 UNIT/ML VIAL 5000 UNIT SUBCUT ×3 (00:31→16:47)
[2024-01-26] MEDS: HYDROmorphone HCl 0.5 MG/0.5 ML SYRINGE IVPUSH ×5 (02:29→20:20)
[2024-01-26] MEDS: NeoMY/Polymyx/Dexameth Oph Sus 5 ML BOTTLE 1 DROP EYE-RIGHT ×4 (07:32→20:14)
[2024-01-26] MEDS: 0.9 % Sodium Chloride Flush 3 ML SYRINGE IVFLUSH ×2 (07:33→16:48)
--- NOTE | 2024-01-26 10:39 | P.PNIM_ITS ---
Subjective Subjective Date of Service: 01/26/24 Interval History: f/u fall, rhabdo, nicko, tibia plateu fx interval history: making good recovery, wants to eat regular food. Physical Exam 2 Vital Signs: Vital Signs: Last Vital Signs Temp 97.2 F 01/26/24 08:00 Pulse 95 01/26/24 08:00 Resp 20 01/26/24 08:00 BP 115/53 L 01/26/24 08:00 Pulse Ox 93 01/26/24 08:00 O2 Del Method Nasal Cannula 01/26/24 08:00 O2 Flow Rate 1.5 01/26/24 08:00 Oxygen Flow Rate 2.5 01/23/24 20:00 BMI result Body Mass Index 25.7 Const: Other: General - no acute distress, appears comfortable; right upper face contusion Cardiovascular - regular rate and rhythm, S1-S2 Lungs - normal respiratory effort, clear to auscultation bilaterally, no wheezing Abdomen - soft, nontender, no rebound or guarding Extremities - RLE in brace/splint Neuro - awake and alert, no focal deficits Objective Data Active Medications Acetaminophen (Acetaminophen 325 Mg Tablet) 650 mg PO Q6H PRN PRN Reason: Pain, Moderate(Pain Scale 4-6) Heparin Sodium (Porcine) (Heparin Sodium,Porcine 5,000 Unit/Ml Vial) 5,000 unit SUBCUT Q8H [facility] Last Admin: 01/26/24 07:32 Dose: 5,000 unit Documented By: RANCHO Hydromorphone HCl (Hydromorphone Hcl 0.5 Mg/0.5 Ml Syringe) 0.5 mg IVPUSH Q3H PRN; Protocol PRN Reason: severe pain Last Admin: 01/26/24 07:32 Dose: 0.5 mg Documented By: RANCHO Meropenem 1 gm/ Sodium (Chloride) 100 mls @ 200 mls/hr IV Q12H [facility] Last Infusion: 01/26/24 10:02 Dose: Infused Documented By: RANCHO Latanoprost (Latanoprost 0.005 % Ophth Ladi 2.5 Ml Drops) 1 drop EYE-BOTH BEDTIME [facility] Last Admin: 01/25/24 22:18 Dose: 1 drop Documented By: PIYUSH-RIVLA Neomycin/Polymyxin/Dexamethasone (Neomy/Polymyx/Dexameth Oph Remedios 5 Ml Bottle) 1 drop EYE-RIGHT RQ4H WHILE AWAKE [facility] Last Admin: 01/26/24 07:32 Dose: 1 drop Documented By: RANCHO Sodium Chloride (0.9 % Sodium Chloride Flush 3 Ml Syringe) 3 ml IVFLUSH QSHIFT [facility] Last Admin: 01/26/24 07:33 Dose: 3 ml Documented By: RANCHO Labs 01/25/24 05:50 01/25/24 05:50 Microbiology Microbiology Results: Microbiology 01/23/24 Unknown Urine Culture - Preliminary Urine Catheterized - Dsouza Catheter Klebsiella pneumoniae 01/23/24 10:32 Blood Culture - Preliminary Blood - Venous No growth after 48 hours. 01/23/24 10:26 Blood Culture - Preliminary Blood - Venous No growth after 48 hours. Assessment and Plan (1) Rhabdomyolysis: Status: Acute Plan 83/F with GERD, anxiety, stasis dermatitis, frequent falls with recent left clavicular fracture and was at a rehab and discharged just the day before. She was found on the floor face down for undertermined period.. 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 related rhabdo -echo ef 35-40%, - The mid inferior and mid inferolateral segments are hypokinetic. - The apex, mid anterior, apical lateral, apical septum, mid anterolateral, mid inferoseptal, and mid anteroseptal segments are akinetic. AFIB--rate is controlled -if needed metoprolol or cardizem -not candiate for anticoagulation d/t falls, h/o GIB, and scalp hematoma--Dr. Portillo discussed with daughter Right tibial plateau fracture Right tib/fib fracture -seen by Ortho Recommendation - a short leg posterior splint - NWB RLE -Follow up out patient Right pterygoid process fracture-- Soft diet Falls, was just dc from rehab the day before -PT eval, likely return to rehab DVT prophylaxis--heparin Full code discussed with pt/daughter at bedside Quality Stroke Does the patient have a stroke diagnosis?: No VTE Prior VTE?: No VTE Risk Level:: Medical - moderate - high VTE Device Contraindication: Treatment Not Indicated VTE Drug Contraindication: N/A - Med Ordered
[2024-01-26 10:52] LABS: Anion Gap 11 (12-20); Blood Urea Nitrogen 27 mg/dL (9-16); Calcium 8.6 mg/dL (8.4-10.2); Carbon Dioxide 30 mmol/L (22-29); Chloride 102 mmol/L (96-108); Estimated Glomerular Filt Rate > 60; Glucose Random 131 mg/dL (60-115); Potassium 3.1 mmol/L (3.3-5.1); Sodium 140 mmol/L (135-145)
--- NOTE | 2024-01-26 11:30 | P.PNCA_ITS ---
Subjective Subjective Date of Service: 01/26/24 Principal diagnosis: NSTEMI Interval history: Patient denies any cardiac symptoms. No symptoms of palpitations. Elevated troponins, no echo has been done as yet. Denies any chest pain. Denies any shortness of breath. She says she has pain all over the body. Review of Systems Constitutional: Reports body ache(s) Cardiovascular: Reports no additional cardiovascular complaints Respiratory: Reports no additional respiratory complaints Genitourinary: Reports no additional female genitourinary complaints Skin/Breast: Reports system reviewed and no additional complaints, except as docu Reports system reviewed and no additional complaints, except as documented Physical Exam Vital Signs: Last Vital Signs Temp 97.2 F 01/26/24 08:00 Pulse 95 01/26/24 08:00 Resp 20 01/26/24 08:00 BP 115/53 L 01/26/24 08:00 Pulse Ox 93 01/26/24 08:00 O2 Del Method Nasal Cannula 01/26/24 08:00 O2 Flow Rate 1.5 01/26/24 08:00 Oxygen Flow Rate 2.5 01/23/24 20:00 BMI result Body Mass Index 25.7 Const General: cooperative, comfortable, no acute distress, alert and awake Nutritional Appearance: obese Orientation/consciousness: patient oriented x3 HEENT Head: Yes normocephalic Neck Neck: Yes trachea midline, Yes supple and Yes no JVD Resp Effort & Inspection: decreased respiratory effort Auscultation: clear to auscultation bilaterally and diminished lung sounds Cardio Rate: regular rate Rhythm: abnormal rhythm irregularly irregular Heart sounds: S1 normal heart sound present, S2 normal heart sound present, no click, no gallops and no murmurs GI Auscultation: normal bowel sounds Skin General skin exam: no rashes or lesions noted and ecchymosis Neuro General: patient oriented x3 and no focal motor deficits Extrem General: Yes no clubbing, cyanosis or edema Objective Labs and Meds 01/25/24 05:50 01/26/24 10:08 Lab results: Laboratory Results - last 24 hr 01/26/24 10:08 Sodium 140 Potassium 3.1 L Chloride 102 Carbon Dioxide 30 H Anion Gap 11 L BUN 27 H Creatinine 0.89 Estim Creat Clear Calc 54.0 Estimated GFR > 60 Random Glucose 131 H Calcium 8.6 Total Creatine Kinase 3817 H Progress Note: A&P Assessment and plan (1) Myocardial injury: Status: Acute Assessment and Plan: Myocardial injury in the patient presenting with frequent falls, with significant rhabdomyolysis with NICKO. Multiple reasons for probably troponin elevation although NSTEMI, secondary can not be entirely ruled out. 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 Needs an echocardiogram to further evaluate for the same. Continue metoprolol 12.5 mg b.i.d. to her regimen. Treatment given her multiple comorbidities will be conservative for now. If she has wall motion abnormality consistent with stress-induced cardiomyopathy, repeat echocardiogram in near future can be pursued as outpatient. No indication for IV heparin at this point time. Needs physical therapy consultation and possibly subacute rehab to improve balance and reduce fall risk. (2) Atrial flutter: Status: Acute Assessment and Plan: Atrial flutter with pulmonary rate control. Start metoprolol 12.5 mg b.i.d.. Agree that currently she is not a good candidate for oral anticoagulation given her frequent falls. If the situation changes in the future may be a candidate for oral anticoagulation therapy as outpatient needs to be evaluated as ongoing basis as outpatient. Continue supportive care. Will follow up with you as need be. Time Spent With Patient Time: Total time managing care of this patient today ____ minutes. Progress Note: Quality Stroke Does the patient have a stroke diagnosis?: No Procedures Date of Service Date of Service: 01/26/24
[2024-01-26] MEDS: Potassium Chloride Packet 20 MEQ PACKET 40 MEQ PO (11:38)
[2024-01-26 11:44] LABS: Magnesium 1.9 mg/dL (1.6-2.6)
[2024-01-26 12:35] LABS: CDiff Gene PCR NEGATIVE (Negative)
--- NOTE | 2024-01-26 13:13 | PC.NURSE ---
per , maciel was removed at 1300. pt due to void at [id number]
[2024-01-26 14:12] LABS: Adenovirus F 40/41 Not Detected (Not Detect.); Astrovirus Not Detected (Not Detect.); Campylobacter Not Detected (Not Detect.); Cryptosporidium Not Detected (Not Detect.); Cyclospora cayetanensis Not Detected (Not Detect.); E. coli EAEC Not Detected (Not Detect.); E. coli EPEC Not Detected (Not Detect.); E. coli ETEC Not Detected (Not Detect.); E. coli STEC Not Detected (Not Detect.); Entamoeba histolytica Not Detected (Not Detect.); Giardia lamblia Not Detected (Not Detect.); Plesiomonas shigelloides Not Detected (Not Detect.); Rotavirus A Not Detected (Not Detect.); Salmonella Not Detected (Not Detect.); Sapovirus Not Detected (Not Detect.); Shigella sp./EIEC Not Detected (Not Detect.); Vibrio Not Detected (Not Detect.); Vibrio Cholerae Not Detected (Not Detect.); Yersinia enterocolitica Not Detected (Not Detect.)
--- NOTE | 2024-01-26 15:51 | MHC.CM.PN ---
PT is recommending STR and Patient does not want to go to [facility] again. CM will follow.
--- NOTE | 2024-01-26 15:52 | MHC.IC ---
POSITIVE NOROVIRUS result on preliminary test. Strict handwashing with soap and water/surface cleaning with bleach.
--- NOTE | 2024-01-26 17:12 | MHC.SL.SWA ---
Speech Pathologist Impression:Oral Dysphagia Dysphasia Diet Status: UPGRADE from NDD1 to NDD3 Liquid Consistency and Strategies for Safe Swallow: Liquid Intake Recommendation: Thin Liquid Intake Strategies: Small Sips Solid Food Consistency: Dietary Recommendations: Chopped/Advanced (NDD3) Additional Modifications to Solid Foods: Recommend UPGRADE from PUREE to CHOPPED (NDD3) diet, continue with THIN liquids, pills WHOLE in LIQUID. Patient is legally blind and will need assistance opening containers, making sure everything on tray is accessible, and periodic check in throughout meals. Oral Medication Intake: Whole with Liquid Please contact the pharmacy regarding appropriate crushable or liquid drug formulations that are available whenever modified delivery is recommended. Compensatory Strategies and Precautions to be Taken for Safe Swallow: Sitting Upright (90 deg) Small Bites and Sips Alternate Liquids/Solids Rate of Ingestion Change Supervision While Eating and Drinking for Safe Swallow: Intermittent Supervision Swallowing Recommended Treatments: Compens. Strategy Educat. Recommendation for Speech: Inpatient Speech Therapy Comment: 1-2 f/u Warning Analyst Clinican/Clinical Fellow: No Supervisory Statement: I have reviewed and agree with the student/clinical fellow's documentation: N/A Speech Language Pathologist: Audrey Chan M.A., CCC-BATCH WEIGHER
[2024-01-26] MEDS: Gabapentin 100 MG CAPSULE PO (20:13)
[2024-01-26] MEDS: Latanoprost 0.005 % Ophth Sol 2.5 ML DROPS 1 DROP EYE-BOTH (20:14)
[2024-01-27] VITALS: BP 107/64; PULSE 95; RESP 18; TEMP 36.6; O2SAT 91
[2024-01-27 00:40] VITALS: RESP 18
[2024-01-27] MEDS: Heparin Sodium,Porcine 5,000 UNIT/ML VIAL 5000 UNIT SUBCUT ×2 (00:40→08:14)
[2024-01-27] MEDS: HYDROmorphone HCl 0.5 MG/0.5 ML SYRINGE IVPUSH ×3 (00:40→11:30)
[2024-01-27 03:22] VITALS: BP 121/72; PULSE 93; RESP 18; TEMP 36; O2SAT 95
[2024-01-27 06:00] VITALS: RESP 20; BMI 32.5
[2024-01-27 06:38] LABS: Hematocrit 37.6 % (37.0-47.0); Hemoglobin 12.1 g/dl (12.0-16.0); Mean Corpuscular HGB Conc 32.2 g/dl (31.0-35.0); Mean Corpuscular Hemoglobin 29.1 pg (27.0-33.0); Mean Corpuscular Volume 90.4 fL (80.0-98.0); Mean Platelet Volume 10.6 fL (9.4-12.3); Platelet Count 207 X10*3/uL (160-400); Red Blood Count 4.16 X10*6/uL (4.20-5.50); Red Cell Distribution Width 14.8 % (11.0-16.0); White Blood Count 8.1 X10*3/uL (4.8-10.8)
[2024-01-27 06:55] LABS: Anion Gap 13 (12-20); Blood Urea Nitrogen 21 mg/dL (9-16); Calcium 9.1 mg/dL (8.4-10.2); Carbon Dioxide 30 mmol/L (22-29); Chloride 102 mmol/L (96-108); Creatinine Clr Calc Pharmacy 67.1; Estimated Glomerular Filt Rate > 60; Glucose Random 110 mg/dL (60-115); Potassium 3.7 mmol/L (3.3-5.1); Sodium 141 mmol/L (135-145)
[2024-01-27 07:50] VITALS: BP 138/75; PULSE 95; RESP 22; TEMP 36.9; O2SAT 93
[2024-01-27] MEDS: Cholecalciferol (Vitamin D3) 25 MCG TABLET 50 MCG PO (08:14)
[2024-01-27] MEDS: NeoMY/Polymyx/Dexameth Oph Sus 5 ML BOTTLE 1 DROP EYE-RIGHT ×2 (08:14→11:32)
[2024-01-27] MEDS: Gabapentin 100 MG CAPSULE PO (08:14)
[2024-01-27] MEDS: 0.9 % Sodium Chloride Flush 3 ML SYRINGE IVFLUSH (08:31)
--- NOTE | 2024-01-27 10:54 | HO.MIDLINE_ITS ---
Midline Insertion MIDLINE INSERTION Diagnosis: +UTI Indication: 10 days of Antibx Pertinent Labs: Reviewed Technique: Using sterile technique including cap and mask, glove and drape, the left arm was prepped and draped in the usual sterile fashion of full barrier technique with CHG. Using ultrasound guidance, left Basilic vein access was obtained by Eleno DUBON. [id number] Trimmed to 12cm ST Midline Non-PASV was positioned. The procedure was performed in 272. Ultrasound was used to document vein patency and for needle entry. A formal ultrasound picture was recorded. Vascular Parachute Packer has released the line for use and it is currently dressed with a StatLock, Tegaderm, and CHG disc. Verification has been performed for blood return and line patency. Arm Circumference: 31.5CM Equipment: [employer] PowerMidline Catheter Type: [id number] trimmed to 12CM PowerMidline ST NON-PASV Lot #: [id number]
--- NOTE | 2024-01-27 10:58 | HO.PM.IMPN ---
Subjective Subjective Date of Service: 01/27/24 Interval History: f/u fall, rhabdo, nicko, tibia plateu fx interval history: doing well, no new issues Physical Exam Vital Signs: Vital Signs: Last Vital Signs Temp 98.5 F 01/27/24 07:50 Pulse 95 01/27/24 07:50 Resp 22 H 01/27/24 07:50 BP 138/75 01/27/24 07:50 Pulse Ox 93 01/27/24 07:50 O2 Del Method Room Air 01/27/24 07:50 O2 Flow Rate 1 01/26/24 19:34 Oxygen Flow Rate 2.5 01/23/24 20:00 BMI result Body Mass Index 32.5 Const: Other: General - no acute distress, appears comfortable; right upper face contusion Cardiovascular - regular rate and rhythm, S1-S2 Lungs - normal respiratory effort, clear to auscultation bilaterally, no wheezing Abdomen - soft, nontender, no rebound or guarding Extremities - RLE in brace/splint Neuro - awake and alert, no focal deficits Objective Data Active Medications Acetaminophen (Acetaminophen 325 Mg Tablet) 650 mg PO Q6H PRN PRN Reason: Pain, Moderate(Pain Scale 4-6) Gabapentin (Gabapentin 100 Mg Capsule) 100 mg PO BID [facility] Last Admin: 01/27/24 08:14 Dose: 100 mg Documented By: RANCHO Heparin Sodium (Porcine) (Heparin Sodium,Porcine 5,000 Unit/Ml Vial) 5,000 unit SUBCUT Q8H [facility] Last Admin: 01/27/24 08:14 Dose: 5,000 unit Documented By: RANCHO Hydromorphone HCl (Hydromorphone Hcl 0.5 Mg/0.5 Ml Syringe) 0.5 mg IVPUSH Q3H PRN; Protocol PRN Reason: severe pain Last Admin: 01/27/24 06:00 Dose: 0.5 mg Documented By: ANGELA Meropenem 1 gm/ Sodium (Chloride) 100 mls @ 200 mls/hr IV Q12H [facility] Last Admin: 01/27/24 08:15 Dose: 200 mls/hr Documented By: RANCHO Latanoprost (Latanoprost 0.005 % Ophth Ladi 2.5 Ml Drops) 1 drop EYE-BOTH BEDTIME [facility] Last Admin: 01/26/24 20:14 Dose: 1 drop Documented By: ANGELA Latanoprost (Latanoprost 0.005 % Ophth Ladi 2.5 Ml Drops) 1 drop EYE-BOTH BEDTIME [facility] Last Admin: 01/27/24 00:52 Dose: Not Given Documented By: ANGELA Non-Admin Reason: Duplicate Order Loperamide HCl (Loperamide Hcl 2 Mg Capsule) 2 mg PO Q6H PRN PRN Reason: Diarrhea Neomycin/Polymyxin/Dexamethasone (Neomy/Polymyx/Dexameth Oph Remedios 5 Ml Bottle) 1 drop EYE-RIGHT RQ4H WHILE AWAKE [facility] Last Admin: 01/27/24 08:14 Dose: 1 drop Documented By: RANCHO Sodium Chloride (0.9 % Sodium Chloride Flush 3 Ml Syringe) 3 ml IVFLUSH QSHIFT [facility] Last Admin: 01/27/24 08:31 Dose: 3 ml Documented By: RANCHO Vitamin D (Cholecalciferol (Vitamin D3) 25 Mcg Tablet) 50 mcg PO DAILY [facility] Last Admin: 01/27/24 08:14 Dose: 50 mcg Documented By: RANCHO Labs 01/27/24 06:28 01/27/24 06:28 Labs: Laboratory Results - last 24 hr 01/26/24 01/26/24 01/27/24 10:08 11:20 06:28 MCV 90.4 MCH 29.1 MCHC 32.2 RDW 14.8 Plt Count 207 MPV 10.6 Absolute Nucleated RBC 0.000 Nucleated RBC % (auto) 0.0 Anion Gap 13 Estim Creat Clear Calc 67.1 Estimated GFR > 60 Random Glucose 110 Calcium 9.1 Magnesium 1.9 Total Creatine Kinase 1925 H Stl C. cayetanensis PCR Not Detected Stool Rotavirus A PCR Not Detected Stl Adenov F 40/41 PCR Not Detected Stool Astrovirus (PCR) Not Detected Stool Campylobacter PCR Not Detected Stool Cryptosporidium PCR Not Detected Stl Sh Tox Pr E STEC PCR Not Detected Stool E coli O157 PCR Not applicable Stl Enterotoxigenic E PCR Not Detected Stool EPEC (PCR) Not Detected Stool EAEC (PCR) Not Detected Stl E. histolytica PCR Not Detected Stool Giardia Lamblia PCR Not Detected Stl P. shigelloides PCR Not Detected Stool Salmonella PCR Not Detected Stool Sapovirus (PCR) Not Detected Stl Shigella/EIEC PCR Not Detected St Y.enterocolitica PCR Not Detected Stool Vibrio (PCR) Not Detected Stl Vibrio cholerae PCR Not Detected Stl Norovirus GI/GII PCR See Comment C. difficile Tox B Gene NEGATIVE Microbiology Microbiology Results: Microbiology 01/23/24 Unknown Urine Culture - Final Urine Catheterized - Dsouza Catheter Klebsiella pneumoniae Assessment and Plan (1) Rhabdomyolysis: Status: Acute Plan 83/F with GERD, anxiety, stasis dermatitis, frequent falls with recent left clavicular fracture and was at a rehab and discharged just the day before. She was found on the floor face down for undertermined period.. Found to have metabolic acidosis, NICKO, Rhabo, elevated troponin NSEMI, UTI admitted through ICU overnight and was on bicab drip Rhabdomylosis--d/t fall and down for prolonged period -cpk trending down -LR -monitor closely NICKO--proably pre-renal and pigment nephropathy from rhabdo, -resolved -stop IVF (SCr 2.83 on admit, now 0.8 Non-gap metabolic acidosis--likely multifactorial --renal failure, rhabdo -resolved with bicab drip UTI--ESBL Klebsieal -change Cftx to Meropenem, has midline for 10 days Leukocytosis/bandemia--likely from UTI -resolved Elevated troponin 5K-->18K-->9K -seen by cardio ? related rhabdo -echo ef 35-40%, - The mid inferior and mid inferolateral segments are hypokinetic. - The apex, mid anterior, apical lateral, apical septum, mid anterolateral, mid inferoseptal, and mid anteroseptal segments are akinetic. Dx: Takotsubo cardiomyopathy AFlutter, controlled -if needed metoprolol or cardizem -not candiate for anticoagulation d/t falls, h/o GIB, and scalp hematoma--Dr. Portillo discussed with daughter Right tibial plateau fracture Right tib/fib fracture -seen by Ortho Recommendation - a short leg posterior splint - NWB RLE -Follow up out patient Right pterygoid process fracture-- diet per [employer] Falls, was just dc from rehab the day before -PT eval, likely return to rehab DVT prophylaxis--heparin Full code discussed with pt/daughter at bedside Quality Stroke Does the patient have a stroke diagnosis?: No VTE Prior VTE?: No VTE Risk Level:: Medical - moderate - high VTE Device Contraindication: Treatment Not Indicated VTE Drug Contraindication: N/A - Med Ordered
--- NOTE | 2024-01-27 11:39 | MHC.CM.PN ---
Per MD, Patient is medically cleared for dc to SNF/STR today. Patient will dc to the [facility] today at 1:30PM, via [facility]. IMM addressed verbally with Patient r/t her poor eyesight. CM spoke with Daughter/HCP/Natividad @ [phone], and informed her of the dc plan.
--- NOTE | 2024-01-27 11:52 | PM.DS ---
DS: Providers Provider Date of Service: 01/27/24 Date of admission: 01/23/24 17:13 Date of discharge: 01/27/24 Primary care physician: KEITH Ryder Consults: 01/23/24 17:23 Consult to Cardiology Routine Consulting Provider: [facility] [place] [facility] Reason for consultation: NSTEMI Has provider been notified: No 01/24/24 11:21 Consult to Orthopedics Routine Consulting Provider: [facility] [place] [facility] Reason for consultation: Acute right distal tibial fracture Has provider been notified: No DS: Diagnosis Discharge Diagnosis (1) Rhabdomyolysis: Status: Acute DS: Summary Hospital Course Hospital Course: admission hpi Chief Complaint: Mechanical fall Ms. 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 She was just discharged yesterday from rehab for a clavicle fracture.? On arrival to the emergency room, the patient's blood pressure 95/56, heart rate 96, O2 sat 94% on 2LNC.? Laboratory data significant for? hemoglobin 9.8, hematocrit 29.6, sodium 148, potassium 2.2, chloride 130, CO2 10, BUN 23, calcium 4.6, magnesium 1.2, AST 121, CPK 7743, troponin 5624, BNP 7 7 2, total protein 3.0, albumin 1.6, VBG 7.32/35/102/18.?UA indicative of UTI. Imaging: Head CT showed frontal scalp swelling but no underlying fracture.? Facial CT: subtle nondisplaced acute fracture involving the right medial pterygoid process. Cervical spine CT no acute fracture or subluxation. Abdomen/pelvis/chest CT: 1.? No acute traumatic injury. 2.? Moderate emphysema. 3.? Enlarged heterogeneously enhancing left thyroid gland extending into the superior mediastinum. 4.? Moderate intra and extrahepatic biliary ductal dilatation. Recommend correlation with LFTs. 5.? 5.4 cm heterogeneously enhancing uterine mass may be a fibroid, however recommend further evaluation with pelvic ultrasound and/or pelvic MRI. 6.? 1.2 cm right adrenal nodule on the indeterminant. ED course: ?The patient received 2049 mL normal saline per sepsis protocol.? She was given ceftriaxone 1 g, Mag sulfate 2 g, a total of 80 mEq potassium chloride, 1 amp sodium bicarb, morphine 2 mg, and a Tdap vaccination.? Hospital course: 83/F with GERD, anxiety, stasis dermatitis, frequent falls with recent left clavicular fracture and was at a rehab and discharged just the day before. She was found on the floor face down for undertermined period.. Found to have metabolic acidosis, NICKO, Rhabomylosis, elevated troponin NSEMI, UTI admitted through ICU overnight and was on bicab drip for metabolic acidosis hospital course by problems Rhabdomylosis--d/t fall and down for prolonged period. [place] 7743[place] [address], then [address], 5804 , 3817 on 01/25 and today 1925. Her treatment initially consisted of bicab drip and later changed to lactated ringer. It is expected that CPK level will retun to normal and maybe check in a few days. NICKO--proably pre-renal and pigment nephropathy from rhabdo. Creatine was 2.83 and has is now normal at 0.80 following IVF Non-gap metabolic acidosis--likely multifactorial --renal failure, rhabdo, initial bicab was 10 and was on bicab drip in the ICU with rapid resolution by the next emmie dnd presently bicab of 30 UTI--ESBL Klebsieal, initially was on Ceftriaxone, but changed to Meropenem, and will be changed to Ertapenem 1 gram daily for a total of 10 days or 9 more days from today, she has a midline inserted on Leukocytosis/bandemia--likely from UTI -resolved Elevated troponin 5K-->18K-->9K -seen by cardio -echo ef 35-40%, - The mid inferior and mid inferolateral segments are hypokinetic. - The apex, mid anterior, apical lateral, apical septum, mid anterolateral, mid inferoseptal, and mid anteroseptal segments are akinetic. Dx: Takotsubo cardiomyopathy AFlutter, controlled. Started on Metoprolol 12.5 mg twice daily -not candiate for anticoagulation d/t falls, h/o GIB, and scalp hematoma--Dr. Portillo discussed with daughter and I did as well, however should her condition improvein the future, anticoagulation should be reconsidered. Started on Metoprolol 12.5 mg twice daily Right tibial plateau fracture Right tib/fib fracture -seen by Ortho Recommendation - a short leg posterior splint - NWB RLE -Follow up out patient with Ortho Right pterygoid process fracture-- [employer] recommends chopped diet and thin liquid Falls, was just dc from rehab the day before -PT recommends short term rehab for less than 30 days Time Attestation Discharge Coordination Time (in mins): 45 Quality: Safe Use of Opioids Does Pt have an Active Cancer Diagnosis on the Problem List?: No Quality: Stroke Does the patient have a stroke diagnosis?: No Physical Exam Vital Signs: Vital Signs: Last Vital Signs Temp 98.5 F 01/27/24 07:50 Pulse 95 01/27/24 07:50 Resp 22 H 01/27/24 07:50 BP 138/75 01/27/24 07:50 Pulse Ox 93 01/27/24 07:50 O2 Del Method Room Air 01/27/24 07:50 O2 Flow Rate 1 01/26/24 19:34 Oxygen Flow Rate 2.5 01/23/24 20:00 BMI result Body Mass Index 32.5 Const: Other: General - no acute distress, appears comfortable; right upper face contusion Cardiovascular - regular rate and rhythm, S1-S2 Lungs - normal respiratory effort, clear to auscultation bilaterally, no wheezing Abdomen - soft, nontender, no rebound or guarding Extremities - RLE in brace/splint Neuro - awake and alert, no focal deficits DS: Data Data Completed and Pending Labs on day of discharge: Laboratory Results - last 24 hr 01/26/24 01/27/24 11:20 06:28 WBC 8.1 RBC 4.16 L Hgb 12.1 Hct 37.6 MCV 90.4 MCH 29.1 MCHC 32.2 RDW 14.8 Plt Count 207 MPV 10.6 Absolute Nucleated RBC 0.000 Nucleated RBC % (auto) 0.0 Sodium 141 Potassium 3.7 Chloride 102 Carbon Dioxide 30 H Anion Gap 13 BUN 21 H Creatinine 0.80 Estim Creat Clear Calc 67.1 Estimated GFR > 60 Random Glucose 110 Calcium 9.1 Total Creatine Kinase 1925 H Stl C. cayetanensis PCR Not Detected Stool Rotavirus A PCR Not Detected Stl Adenov F 40/41 PCR Not Detected Stool Astrovirus (PCR) Not Detected Stool Campylobacter PCR Not Detected Stool Cryptosporidium PCR Not Detected Stl Sh Tox Pr E STEC PCR Not Detected Stool E coli O157 PCR Not applicable Stl Enterotoxigenic E PCR Not Detected Stool EPEC (PCR) Not Detected Stool EAEC (PCR) Not Detected Stl E. histolytica PCR Not Detected Stool Giardia Lamblia PCR Not Detected Stl P. shigelloides PCR Not Detected Stool Salmonella PCR Not Detected Stool Sapovirus (PCR) Not Detected Stl Shigella/EIEC PCR Not Detected St Y.enterocolitica PCR Not Detected Stool Vibrio (PCR) Not Detected Stl Vibrio cholerae PCR Not Detected Stl Norovirus GI/GII PCR See Comment C. difficile Tox B Gene NEGATIVE Preliminary micro results at discharge 01/23/24 10:32 Blood Culture - Preliminary Blood - Venous No growth after 48 hours. 01/23/24 10:26 Blood Culture - Preliminary Blood - Venous No growth after 48 hours. Discharge Plan Discharge Anticipated Discharge Date/Time: 01/27/24 11:42 Patient Disposition: Xfer SNF Discharge Diagnosis: fall, rhabdomylosis, uti, takotsubo cardiomyopathy Referrals: [facility] [Outside] - 1 Week Colten Santamaria PA [Physician Process Engineering Manager] - 02/13/24 11:00 am (02/13/24 at 11:00am) Bc Guzman FNP-BC [Primary Care Provider] - 1 Week Mahogany Bee PA-C [Physician Process Engineering Manager] - 2 Weeks Discharge Medications: New ertapenem 1 gram recon soln 1 g IV DAILY Qty: 8 0RF metoprolol tartrate 25 mg tablet 12.5 mg PO BID Qty: 60 0RF oxycodone 5 mg tablet 5 mg PO Q6H PRN (Reason: pain (scale score 7-10)) Qty: 30 0RF Rx Instructions: Partial Fill upon patient request. Continued cholecalciferol (vitamin D3) 50 mcg (2,000 unit) capsule 50 mcg PO DAILY Qty: 90 3RF gabapentin 100 mg capsule 100 mg PO BID 30 Days Qty: 60 4RF latanoprost 0.005 % drops 1 drp ophthalmic (eye) BEDTIME No Action (DME) rollator walker with seat See Rx Instructions .Route .MEDSUPPLY Qty: 1 0RF Rx Instructions: As directed Discharge Orders: Discharge Order (Routine); Ordered 01/27/24 Ordered By: Angel Morin Diet: chooped solid, thin liqui Activity on Discharge: As tolerated Stand Alone Forms: Patient Portal Discharge page Print Language: Frisian Care Plan Goals: recovery from fall, rhabomylosis, renal failure, takotsubo cardiomyopathy, tibia plateu fracture, Health Concerns: see above Plan of Treatment: to short term rehab for less than 30 days - Recommendation for a short leg posterior splint WB RLE Follow up out patient with orthopedic office Take Ertapenem as recommended Assessment: see above Discharge Date/Time: 01/27/24 14:59
[2024-01-27 12:00] VITALS: BP 115/73; PULSE 86; RESP 20; TEMP 36.4; O2SAT 95
[2024-01-27] MEDS: Metoprolol Tartrate 12.5 MG HALFTAB PO (12:18)
[2024-01-27] MEDS: Ertapenem Sodium 1 GM in 0.9 % Sodium Chloride 50 ML IV (13:36)
--- NOTE | 2024-01-27 13:39 | PM.CNOR ---
History of Present Illness HPI Consult date: 01/27/24 Chief complaint: Fall, rhabdo, + trop Narrative: Ms. Guillermo is an 83-year-old female history of anxiety, hypertension, venous stasis presenting to the emergency department with complaints of trip and fall on unable to get up from the ground, she reports she tripped at some point yesterday unclear how, she was unable to get up from the ground, her daughter did not hear from her since yesterday she decided to go to her house and found her face down on the ground. She has complaining of right-sided face pain, abrasion to the right buenrostro and right wrist region. While in the ED the patient was found to have rhabdomylisis, multiple skin tears, atrial flutter, and blunt trauma of the face and was transferred to the ICU. X-rays of the right lower extremity revealed a right tibial plateau fracture and a right tibia and fibula fracture. She was placed into a posterior splint by the ED transferring provider and instructed to follow-up out patient with orthopedics as no acute reduction or surgical intervention was needed at that time. Review of Systems Review of Systems: Yes all other systems are reviewed and are negative PMFSH Past Medical History Medical History Arthritis Tobacco use Anxiety Venous stasis dermatitis GERD (gastroesophageal reflux disease) White coat syndrome with high blood pressure but without hypertension Social History Social History Household Members: None Housing: Apartment Do you presently have visiting nurse or other home services: Yes (5hrs/week) Alcohol intake: never Patient Tobacco Use Status: Current someday Tobacco user Tobacco use type: Cigarette Cigarette Packs Per Day: 1 Cigarettes Per Day: 10 Years Smoked: 20 yrs e-Cigarette/Vaping Use: Never Used Second Hand Smoke Exposure: No Advance Directives Date on File: 10/03/20 service: No Current occupational status: retired Cognitive needs: No Hearing needs: No Vision needs: No Meds Allergies Allergy/AdvReac Type Severity Reaction Status Date / Time ciprofloxacin [From CIPRO] Allergy Intermediate SHORTNESS Verified 01/23/24 11:08 OF BREATH metronidazole [From FLAGYL] Allergy Intermediate SHORTNESS Verified 01/23/24 11:08 OF BREATH aspirin [ASPIRIN] Allergy Unknown CAN'T TAKE Verified 01/23/24 11:08 BECAUSE OF BLEEDING, gi bleed, gi bleeding latex [LATEX] Allergy Unknown DIFFICULTY Verified 01/23/24 11:08 BREATHING tramadol [From ULTRAM] Allergy Unknown DIZZINESS Verified 01/23/24 11:08 Latex Allergy Unknown Unknown Uncoded 01/23/24 11:08 Latex Gloves Allergy Unknown rash Uncoded 01/23/24 11:08 Active Medications: Current Medications Acetaminophen (Acetaminophen 325 Mg Tablet) 650 mg PO Q6H PRN PRN Reason: Pain, Moderate(Pain Scale 4-6) Gabapentin (Gabapentin 100 Mg Capsule) 100 mg PO BID [facility] Last Admin: 01/27/24 08:14 Dose: 100 mg Heparin Sodium (Porcine) (Heparin Sodium,Porcine 5,000 Unit/Ml Vial) 5,000 unit SUBCUT Q8H [facility] Last Admin: 01/27/24 08:14 Dose: 5,000 unit Hydromorphone HCl (Hydromorphone Hcl 0.5 Mg/0.5 Ml Syringe) 0.5 mg IVPUSH Q3H PRN; Protocol PRN Reason: severe pain Last Admin: 01/27/24 11:30 Dose: 0.5 mg Latanoprost (Latanoprost 0.005 % Ophth Ladi 2.5 Ml Drops) 1 drop EYE-BOTH BEDTIME [facility] Last Admin: 01/26/24 20:14 Dose: 1 drop Latanoprost (Latanoprost 0.005 % Ophth Ladi 2.5 Ml Drops) 1 drop EYE-BOTH BEDTIME [facility] Last Admin: 01/27/24 00:52 Dose: Not Given Loperamide HCl (Loperamide Hcl 2 Mg Capsule) 2 mg PO Q6H PRN PRN Reason: Diarrhea Metoprolol Tartrate (Metoprolol Tartrate 12.5 Mg Halftab) 12.5 mg PO BID [facility]; Protocol Last Admin: 01/27/24 12:18 Dose: 12.5 mg Neomycin/Polymyxin/Dexamethasone (Neomy/Polymyx/Dexameth Oph Remedios 5 Ml Bottle) 1 drop EYE-RIGHT RQ4H WHILE AWAKE [facility] Last Admin: 01/27/24 11:32 Dose: 1 drop Sodium Chloride (0.9 % Sodium Chloride Flush 3 Ml Syringe) 3 ml IVFLUSH QSHIFT [facility] Last Admin: 01/27/24 08:31 Dose: 3 ml Vitamin D (Cholecalciferol (Vitamin D3) 25 Mcg Tablet) 50 mcg PO DAILY [facility] Last Admin: 01/27/24 08:14 Dose: 50 mcg Home Medications ?Medication ?Instructions ?Recorded ?Confirmed ?Last Taken ?Type latanoprost 0.005 % eye drops 1 drp ophthalmic (eye) BEDTIME 11/15/23 01/23/24 01/21/24 History Physical Exam Vital Signs: Vital Signs: Last Vital Signs Temp 97.5 F 01/27/24 12:00 Pulse 86 01/27/24 12:00 Resp 20 01/27/24 12:00 BP 115/73 01/27/24 12:00 Pulse Ox 95 01/27/24 12:00 O2 Del Method Room Air 01/27/24 12:00 O2 Flow Rate 1 01/26/24 19:34 Oxygen Flow Rate 2.5 01/23/24 20:00 BMI result Body Mass Index 32.5 Const: General: cooperative, healthy appearing and no acute distress Resp: Effort & Inspection: normal respiratory effort and able to speak in complete sentences Cardio: Rate: regular rate Peripheral pulses: Peripheral pulses 2+ throughout GI: Palpation (GI): Soft to palpation Skin: Lesions: no lesions Rashes: no rashes Extrem: Other: RLE splint with poor positioning. Pain with any motion. Reports sensation is intact. Results Labs 01/27/24 06:28 01/27/24 06:28 Labs: Abnormal lab results 01/27/24 Range/Units 06: RBC 4.16 L (4.20-5.50) X10*6/uL Carbon Dioxide 30 H (22-29) mmol/L BUN 21 H (9-16) mg/dL Total Creatine Kinase 1925 H (26-140) U/L H & H 01/23/24 01/24/24 01/25/24 Range/Units 10:26 05:46 05:50 Hgb 9.8 L D 13.3 D 11.7 L (12.0-16.0) g/dl Hct 29.6 L D 40.6 D 35.9 L (37.0-47.0) % 01/27/24 Range/Units 06:28 Hgb 12.1 (12.0-16.0) g/dl Hct 37.6 (37.0-47.0) % Coagulation 01/23/24 Range/Units 10:32 INR 1.0 (0.9-1.1) All other labs normal. Assessment and Plan (1) Rhabdomyolysis: Qualifiers: Encounter type: initial encounter Rhabdomyolysis type: traumatic Qualified Code(s): T79.6XXA - Traumatic ischemia of muscle, initial encounter Status: Acute (2) Elevated troponin: Status: Acute (3) Metabolic acidosis: Status: Acute (4) Sepsis: Qualifiers: Sepsis acute organ dysfunction status: unspecified Sepsis type: sepsis due to unspecified organism Qualified Code(s): A41.9 - Sepsis, unspecified organism Status: Acute (5) Acute kidney injury: Status: Acute (6) Atrial flutter: Qualifiers: Atrial flutter type: unspecified Qualified Code(s): I48.92 - Unspecified atrial flutter Status: Acute (7) Fall: Qualifiers: Encounter type: subsequent encounter Qualified Code(s): W19.XXXD - Unspecified fall, subsequent encounter Status: Acute (8) Fracture of right tibial plateau: Status: Acute Ms. Guillermo is an 83 yo female who presented to the ED on 01/23/24 after a mechanical fall with a prolonged don time. While in the ED the patient was found to have rhabdomylisis, multiple skin tears, atrial flutter, and blunt trauma of the face and was transferred to the ICU. X-rays of the right lower extremity revealed a right tibial plateau fracture and a right tibia and fibula fracture. She was placed into a posterior splint by the ED transferring provider and instructed to follow-up out patient with orthopedics as no acute reduction or surgical intervention was needed at that time. Patient has multiple comorbidities not making her a surgical candidate such as a. flutter, multiple falls, rhabdomyolysis, venous stasus, and blind which contribute to the decision to treat these fractures conservatively. A New posterior short leg splint was placed at bedside by the orthopedic team today with anticipation that the patient will discharge later today. She will followup out patient for continued orthopedic management. (9) Closed fracture of right distal tibia: Status: Acute (10) Closed fracture of right distal fibula: Status: Acute (11) Venous stasis dermatitis: Status: Acute Procedures Date of Service Date of Service: 01/27/24 Orthopedic Splinting/Casting Injury #1: Side: right Lower extremity injury location: ankle Lower extremity immobilizer: posterior splint
--- NOTE | 2024-01-27 15:31 | MHC.CM.PN ---
CM received a call from [facility], stating that dc summary is incomplete. This CM and computer equipment installer/Julisa addressed necessary changed/additions that needed to be made with MD. Updated dc summary has been uploaded in [employer] and faxed to [phone].
[2024-01-28 10:35] LABS: Norovirus Stool PCR NOT DETECTED
== END 2024-01-27 14:59 | disposition skilled nursing facility (03) | DRG 564 ==
LOC: HO.ED 18:05 → HO.EDOVER 18:09 → HO.ICU 18:32 → HO.IMC 01-25 12:20
PROVIDERS: Emergency Medicine; Nurse Practitioner Family; Physician Assistant; Admitting Provider Internal Medicine Pulmonary Disease; Emergency Provider Emergency Medicine Emergency Medical Services; PCP Nurse Practitioner Family; Visit Provider Internal Medicine
DX: T79.6XXA Traumatic ischemia of muscle, initial encounter (principal); G93.41 Metabolic encephalopathy; N39.0 Urinary tract infection, site not specified; S02.81XA Fracture of other specified skull and facial bones, right side, initial encounter for closed fracture; I48.92 Unspecified atrial flutter; E87.20 Acidosis, unspecified; N17.9 Acute kidney failure, unspecified; Z16.12 Extended spectrum beta lactamase (ESBL) resistance; I51.81 Takotsubo syndrome; S82.391A Other fracture of lower end of right tibia, initial encounter for closed fracture; S82.831A Other fracture of upper and lower end of right fibula, initial encounter for closed fracture; H10.9 Unspecified conjunctivitis; R29.6 Repeated falls; E87.6 Hypokalemia; B96.1 Klebsiella pneumoniae [K. pneumoniae] as the cause of diseases classified elsewhere; D64.9 Anemia, unspecified; I10 Essential (primary) hypertension; S42.032A Displaced fracture of lateral end of left clavicle, initial encounter for closed fracture; F17.210 Nicotine dependence, cigarettes, uncomplicated; Z71.6 Tobacco abuse counseling; H54.8 Legal blindness, as defined in USA; W19.XXXA Unspecified fall, initial encounter; I95.9 Hypotension, unspecified; E86.1 Hypovolemia; Z87.440 Personal history of urinary (tract) infections; Z79.899 Other long term (current) drug therapy
CPT/HCPCS: 36410; 36415; 70450; 70486; 71260; 72125; 73030; 73560; 73590; 73610; 73700; 74177; 80048; 80053; 81001; 82040; 82272; 82550; 82803; 83605; 83735; 83880; 84100; 84443; 84484; 85007; 85025; 85027; 85610; 87040; 87086; 87088; 87186; 87493; 87507; 92526; 92610; 93005; 93306; 97162; 99285; C1751; C1758; C1894; J0696; J1170; J1335; J1644; J2185; J2270; J3010; J3475; J3480; J7120; Q9967

== ENCOUNTER 2024-01-23 17:13 | Outpatient (BNV) | payer MEDICARE, MEDICAID, SELFPAY | END 2024-01-24 07:00 | PROVIDERS: Admitting Provider Internal Medicine Pulmonary Disease; Emergency Provider Emergency Medicine Emergency Medical Services; PCP Nurse Practitioner Family; Visit Provider Internal Medicine Cardiovascular Disease | DX: I36.1 Nonrheumatic tricuspid (valve) insufficiency (principal); R93.1 Abnormal findings on diagnostic imaging of heart and coronary circulation | CPT/HCPCS: 93306 ==

== ENCOUNTER → 2024-01-23 17:13 | Outpatient (BNV) | payer MEDICARE, MEDICAID, SELFPAY | PROVIDERS: Admitting Provider Internal Medicine Pulmonary Disease; Emergency Provider Emergency Medicine Emergency Medical Services; PCP Nurse Practitioner Family; Visit Provider Internal Medicine Cardiovascular Disease | DX: T79.6XXA Traumatic ischemia of muscle, initial encounter (principal); R79.89 Other specified abnormal findings of blood chemistry | CPT/HCPCS: 99223; 99233 ==

== ENCOUNTER → 2024-01-23 17:13 | Outpatient (BNV) | payer MEDICARE, MEDICAID, SELFPAY | PROVIDERS: Admitting Provider Internal Medicine Pulmonary Disease; Emergency Provider Emergency Medicine Emergency Medical Services; PCP Nurse Practitioner Family; Visit Provider Internal Medicine | DX: T79.6XXA Traumatic ischemia of muscle, initial encounter (principal); M62.82 Rhabdomyolysis | CPT/HCPCS: 99232; 99233; 99239; 99499 ==

== ENCOUNTER → 2024-01-23 17:13 | Outpatient (BNV) | payer MEDICARE, MEDICAID, SELFPAY | PROVIDERS: Admitting Provider Internal Medicine Pulmonary Disease; Emergency Provider Emergency Medicine Emergency Medical Services; PCP Nurse Practitioner Family; Visit Provider Nurse Practitioner Family | DX: T79.6XXA Traumatic ischemia of muscle, initial encounter (principal); E87.20 Acidosis, unspecified; A41.9 Sepsis, unspecified organism; N17.9 Acute kidney failure, unspecified; I5A Non-ischemic myocardial injury (non-traumatic); E87.6 Hypokalemia; N39.0 Urinary tract infection, site not specified; R31.9 Hematuria, unspecified; I48.92 Unspecified atrial flutter; S02.81XA Fracture of other specified skull and facial bones, right side, initial encounter for closed fracture; T14.8XXA Other injury of unspecified body region, initial encounter; W19.XXXD Unspecified fall, subsequent encounter; S42.032A Displaced fracture of lateral end of left clavicle, initial encounter for closed fracture; F41.9 Anxiety disorder, unspecified | CPT/HCPCS: 99291 ==

== ENCOUNTER → 2024-01-23 17:13 | Outpatient (BNV) | payer MEDICARE, MEDICAID, SELFPAY | PROVIDERS: Admitting Provider Internal Medicine Pulmonary Disease; Emergency Provider Emergency Medicine Emergency Medical Services; PCP Nurse Practitioner Family; Visit Provider Physician Assistant | DX: T79.6XXA Traumatic ischemia of muscle, initial encounter (principal); R79.89 Other specified abnormal findings of blood chemistry; E87.20 Acidosis, unspecified; A41.9 Sepsis, unspecified organism; N17.9 Acute kidney failure, unspecified; I48.92 Unspecified atrial flutter; W19.XXXD Unspecified fall, subsequent encounter; S82.141A Displaced bicondylar fracture of right tibia, initial encounter for closed fracture; S82.301A Unspecified fracture of lower end of right tibia, initial encounter for closed fracture; S82.831A Other fracture of upper and lower end of right fibula, initial encounter for closed fracture; I87.2 Venous insufficiency (chronic) (peripheral) | CPT/HCPCS: 27786; 99223; 99358; 99499 ==

== ENCOUNTER → 2024-01-23 17:13 | Outpatient (BNV) | payer MEDICARE, MEDICAID, SELFPAY | PROVIDERS: Admitting Provider Internal Medicine Pulmonary Disease; Emergency Provider Emergency Medicine Emergency Medical Services; PCP Nurse Practitioner Family; Visit Provider Internal Medicine Pulmonary Disease | DX: M62.82 Rhabdomyolysis (principal); N17.9 Acute kidney failure, unspecified; I48.92 Unspecified atrial flutter; I5A Non-ischemic myocardial injury (non-traumatic); S02.81XA Fracture of other specified skull and facial bones, right side, initial encounter for closed fracture | CPT/HCPCS: 99233 ==

== ENCOUNTER 2024-02-20 | Outpatient (REF) | payer MEDICARE, MEDICAID, SELFPAY | END 2024-02-20 00:01 | disposition home or self-care (01) | LOC: CF | DX: S82.831A Other fracture of upper and lower end of right fibula, initial encounter for closed fracture (principal); S82.301A Unspecified fracture of lower end of right tibia, initial encounter for closed fracture; S82.141A Displaced bicondylar fracture of right tibia, initial encounter for closed fracture | CPT/HCPCS: 27786; 99212 ==

== ENCOUNTER 2024-02-20 13:46 | Outpatient (AMB) | payer MEDICARE, MEDICAID, SELFPAY ==
--- NOTE | 2024-02-20 13:57 | MHC.OFFVIS ---
Intake Visit Reasons: FC Right ankle tib/fib fx Intake Note: Ni is an 83 year old female who presents today with her daughter as a new patient for a fracture care visit for her right distal tibia and fibula fractures s/p fall DOI: 01/22/2024. Patient reports she thinks she was walking to get to bed, she does not have memory of her fall. Patient's daughter is the one who found her face down on the floor. Patient reports she has pain in her right ankle and top of her foot. She says they ar not giving her pain medications like they used to but it gives her mild relief when they do. Allergies ciprofloxacin [From CIPRO] Allergy (Intermediate, Verified 02/20/24 14:11) SHORTNESS OF BREATH metronidazole [From FLAGYL] Allergy (Intermediate, Verified 02/20/24 14:11) SHORTNESS OF BREATH aspirin [ASPIRIN] Allergy (Unknown, Verified 02/20/24 14:11) CAN'T TAKE BECAUSE OF BLEEDING, gi bleed, gi bleeding latex [LATEX] Allergy (Unknown, Verified 02/20/24 14:11) DIFFICULTY BREATHING tramadol [From ULTRAM] Allergy (Unknown, Verified 02/20/24 14:11) DIZZINESS Latex Allergy (Unknown, Uncoded 02/20/24 14:11) Unknown Latex Gloves Allergy (Unknown, Uncoded 02/20/24 14:11) rash HPI HPI FC Right ankle tib/fib fx: Details: Patient is an 83-year-old female who presents for evaluation of right distal tibia and fibula fractures, as well as right tibial plateau fracture, date of injury 01/22/2024. The patient's daughter reports that on that date, she was discharged from the rehab facility she was at for a clavicle fracture, and the patient's daughter attempted to call the patient, with no answer. The patient's daughter than went to her house and found the patient on the ground, face down, and is unable to assess exactly how long the patient was on the ground. The patient was previously admitted to the hospital for treatment of rhabdomyolysis and associated acute kidney injury, where she was evaluated by Orthopedics and placed into a splint on her right ankle. Today, the patient reports that she is feeling much better than she was while in the hospital, but states that she is still experiencing discomfort in her right ankle. Patient denies any pain in her right knee. The patient states that she has been totally nonweightbearing on her right lower extremity since her injury. Patient also states that her pain medications at the rehab she is at now have decreased, and she feels this has caused her increase in pain. No other acute complaints or concerns at this time. [facility] Medical History Clavicle fracture Anxiety Arthritis Tobacco use Anxiety Venous stasis dermatitis GERD (gastroesophageal reflux disease) White coat syndrome with high blood pressure but without hypertension Social History Household Members: None Housing: Apartment Do you presently have visiting nurse or other home services: Yes (5hrs/week) Alcohol intake: never Patient Tobacco Use Status: Current someday Tobacco user Tobacco use type: Cigarette Cigarette Packs Per Day: 1 Cigarettes Per Day: 10 Years Smoked: 20 yrs e-Cigarette/Vaping Use: Never Used Second Hand Smoke Exposure: No Advance Directives Date on File: 10/03/20 service: No Current occupational status: retired Cognitive needs: No Hearing needs: No Vision needs: No Physical Exam Extrem Other: On inspection, there is a visible deformity of both the medial and lateral malleoli of the right ankle There is also noted to be edema and ecchymosis about the right ankle No erythema noted No lacerations, abrasions, open Areas no evidence of infection Patient reports mild to moderate tenderness to palpation diffusely about the right ankle Patient denies any tenderness to palpation of the right knee Patient is able to flex and extend the digits of the right foot fully without difficulty Distal sensation intact Capillary refill brisk Office Procedures Casting/Splints 13966-[id number] Leg Cast Application Procedure code (CPT) selection complete Fracture Care Details: Right distal tibia fracture, right distal fibula fracture, right tibial plateau fracture Fracture Billing Code: Fracture Billing Code Results Reviewed Results Reviewed: X-rays obtained at the longterm facility on 02/16/2024 and independently reviewed by me, Colten Santamaria PA-C, demonstrate displaced fractures of both the distal tibia and distal fibula, as well as minimally displaced fracture of the right tibial plateau. Assessment & Plan Assessment & Plan (1) Closed fracture of right distal fibula: Code(s): S82.831A - Other fracture of upper and lower end of right fibula, initial encounter for closed fracture Category: Medical (2) Closed fracture of right distal tibia: Code(s): S82.301A - Unspecified fracture of lower end of right tibia, initial encounter for closed fracture Category: Medical (3) Fracture of right tibial plateau: Code(s): S82.141A - Displaced bicondylar fracture of right tibia, initial encounter for closed fracture Category: Medical Plan 1. Fracture of right distal tibia 2. Fracture of right distal fibula 3. Fracture of right tibial plateau Date of injury 01/22/2024 Patient is educated about these injuries Patient is educated about the typical recovery course Patient is educated that, due to her significant past medical history, she is not a good candidate for surgery Patient is also informed that, per Dr. Mao, her ankle is still in such an alignment where conservative management is an option Patient is informed that she may never regain full normal function of her right ankle, even after her fractures heal Patient expresses understanding of this Patient is educated that she should be totally nonweightbearing on the right lower extremity for at least another 4 weeks to allow for healing of her right tibial plateau fracture, as well as the fractures in her ankle Patient is placed in a short-leg cast on the right leg at this time Patient is educated on typical cast care and precautions Patient will follow-up in 4 weeks with repeat x-rays, sooner with any acute concerns Coding Level of Care Code Est Pt Level 4 (92404) Diagnoses Closed fracture of right distal fibula S82.831A Closed fracture of right distal tibia S82.301A Fracture of right tibial plateau S82.141A CPT Codes Casting - CPT: 20617-Tgipn Leg Cast Application ([id number]) Fracture Care - Fracture Billing Code: Fracture Billing Code ([id number])
== END 2024-02-20 14:54 | disposition home or self-care (01) ==
PROVIDERS: PCP Nurse Practitioner Family
DX: S82.831A Other fracture of upper and lower end of right fibula, initial encounter for closed fracture (principal); S82.301A Unspecified fracture of lower end of right tibia, initial encounter for closed fracture; S82.141A Displaced bicondylar fracture of right tibia, initial encounter for closed fracture
CPT/HCPCS: 27786; 99214

== ENCOUNTER 2024-03-19 09:27 | Outpatient (REF) | payer MEDICARE, MEDICAID, SELFPAY | END 2024-03-19 09:28 | disposition home or self-care (01) | LOC: HO.HOSX 09:27 | DX: M25.571 Pain in right ankle and joints of right foot (principal); M17.11 Unilateral primary osteoarthritis, right knee; S82.831A Other fracture of upper and lower end of right fibula, initial encounter for closed fracture; S82.301A Unspecified fracture of lower end of right tibia, initial encounter for closed fracture; S82.141A Displaced bicondylar fracture of right tibia, initial encounter for closed fracture | CPT/HCPCS: 73562; 73610; 99212 ==

== ENCOUNTER 2024-03-19 14:05 | Outpatient (AMB) | payer MEDICARE, MEDICAID, SELFPAY ==
--- NOTE | 2024-03-19 14:46 | A.OFFVIS_ITS ---
Intake Visit Reasons: FC 4 WK Right ankle tib/fib fx Intake Note: Ni is a 83 year old female who presents in the office today with her daughter for a follow up visit for her right distal tibia and fibula fractures s/p fall DOI: 01/22/2024 Allergies ciprofloxacin [From CIPRO] Allergy (Intermediate, Verified 02/20/24 14:11) SHORTNESS OF BREATH metronidazole [From FLAGYL] Allergy (Intermediate, Verified 02/20/24 14:11) SHORTNESS OF BREATH aspirin [ASPIRIN] Allergy (Unknown, Verified 02/20/24 14:11) CAN'T TAKE BECAUSE OF BLEEDING, gi bleed, gi bleeding latex [LATEX] Allergy (Unknown, Verified 02/20/24 14:11) DIFFICULTY BREATHING tramadol [From ULTRAM] Allergy (Unknown, Verified 02/20/24 14:11) DIZZINESS Latex Allergy (Unknown, Uncoded 02/20/24 14:11) Unknown Latex Gloves Allergy (Unknown, Uncoded 02/20/24 14:11) rash HPI HPI FC 4 WK Right ankle tib/fib fx: Details: Patient is an 83-year-old female who presents for 4 week follow-up evaluation status post right ankle tib-fib fracture and right tibial plateau fracture, date of injury 01/22/2024. Today, the patient reports that she has still been completely nonweightbearing on her right lower extremity since date of injury, and then she is not experiencing any pain in her right ankle or knee at this time. However, the patient states that she does feel that her ankle is ?not straight on my leg?, and she is concerned that it may never be straight again. Patient denies any numbness or tingling in the right lower extremity. No other acute complaints or concerns at this time. [facility] Medical History Clavicle fracture Anxiety Arthritis Tobacco use Anxiety Venous stasis dermatitis GERD (gastroesophageal reflux disease) White coat syndrome with high blood pressure but without hypertension Social History Household Members: None Housing: Apartment Do you presently have visiting nurse or other home services: Yes (5hrs/week) Alcohol intake: never Patient Tobacco Use Status: Current someday Tobacco user Tobacco use type: Cigarette Cigarette Packs Per Day: 1 Cigarettes Per Day: 10 Years Smoked: 20 yrs e-Cigarette/Vaping Use: Never Used Second Hand Smoke Exposure: No Advance Directives Date on File: 10/03/20 service: No Current occupational status: retired Cognitive needs: No Hearing needs: No Vision needs: No Review of Systems Const All systems reviewed & are unremarkable except as noted in HPI and below Physical Exam Extrem Other: On inspection, there is a visible deformity of both the medial and lateral malleoli of the right ankle There is also noted to be very edema about the right ankle No erythema noted Of note, there is an old, healing skin tear that was present at last visit, no evidence of infection Areas no evidence of infection Patient reports no palpation to the right ankle in the office today Patient denies any tenderness to palpation of the right knee Patient is able to flex and extend the digits of the right foot fully without difficulty Distal sensation intact Capillary refill brisk Results Reviewed Results Reviewed: X-rays obtained at the [facility] on 02/16/2024 and independently reviewed by me, Colten Santamaria PA-C, demonstrate displaced fractures of both the distal tibia and distal fibula, as well as minimally displaced fracture of the right tibial plateau, with evidence of interval bony healing. Assessment & Plan Assessment & Plan (1) Closed fracture of right distal fibula: Code(s): S82.831A - Other fracture of upper and lower end of right fibula, initial encounter for closed fracture Category: Medical (2) Closed fracture of right distal tibia: Code(s): S82.301A - Unspecified fracture of lower end of right tibia, initial encounter for closed fracture Category: Medical (3) Fracture of right tibial plateau: Code(s): S82.141A - Displaced bicondylar fracture of right tibia, initial encounter for closed fracture Category: Medical Plan 1. Right tib-fib fracture of ankle 2. Right tibial plateau fracture Date of injury 01/22/2024 Patient appears to be recovering moderately well postoperatively Patient is educated about the typical recovery course At this time, patient's ankle is able to be passively brought into normal anatomical position, but falls into the ?twisted? position that the patient discuss before while at rest, suggesting that it was not a mechanical issue Patient understands this Patient is educated that it will be another month before she can attempt weight- bearing, likely longer, and it was a chance that her knee or ankle may never return to full normal function as prior to injury Patient and her daughter expressed understanding of this Patient will follow-up in 4 weeks with repeat x-rays for reassessment, sooner with any acute concerns Possible attempt at weight-bearing on the right lower extremity at that time, depending on healing and how the patient feels Orders: Orders XR ankle RT min 3V 03/19/24 M25.571 - Pain in right ankle and joints of right foot XR knee RT 3V 03/19/24 M17.11 - Unilateral primary osteoarthritis, right knee Coding Level of Care Code Est Pt Level 3 (99364) Global (73171) Diagnoses Closed fracture of right distal fibula S82.831A Closed fracture of right distal tibia S82.301A Fracture of right tibial plateau S82.141A
== END 2024-03-19 15:31 | disposition home or self-care (01) ==
PROVIDERS: PCP Nurse Practitioner Family
DX: S82.831A Other fracture of upper and lower end of right fibula, initial encounter for closed fracture (principal); S82.301A Unspecified fracture of lower end of right tibia, initial encounter for closed fracture; S82.141A Displaced bicondylar fracture of right tibia, initial encounter for closed fracture
CPT/HCPCS: 99024

== ENCOUNTER 2024-04-16 09:38 | Outpatient (AMB) | payer MEDICARE, MEDICAID, SELFPAY ==
--- NOTE | 2024-04-16 09:40 | MHC.OFFVIS ---
Intake Visit Reasons: OV: Right ankle tib/fib fx Intake Note: Ni is a 83 year old female who presents in the office today with her daughter for a follow up visit for her right distal tibia and fibula fractures s/p fall DOI: 01/22/2024. Patient reports he foot is aching. She expresses she had daily pain. Allergies ciprofloxacin [From CIPRO] Allergy (Intermediate, Verified 04/16/24 09:41) SHORTNESS OF BREATH metronidazole [From FLAGYL] Allergy (Intermediate, Verified 04/16/24 09:41) SHORTNESS OF BREATH aspirin [ASPIRIN] Allergy (Unknown, Verified 04/16/24 09:41) CAN'T TAKE BECAUSE OF BLEEDING, gi bleed, gi bleeding latex [LATEX] Allergy (Unknown, Verified 04/16/24 09:41) DIFFICULTY BREATHING tramadol [From ULTRAM] Allergy (Unknown, Verified 04/16/24 09:41) DIZZINESS Latex Allergy (Unknown, Uncoded 04/16/24 09:41) Unknown Latex Gloves Allergy (Unknown, Uncoded 04/16/24 09:41) rash HPI HPI OV: Right ankle tib/fib fx: Details: Patient is an 83-year-old female who presents for 4 week follow-up evaluation status post right ankle tib-fib fracture and right tibial plateau fracture, date of injury 01/22/2024. Today, the patient reports that she has still been completely nonweightbearing on her right lower extremity since date of injury, and then she is not experiencing any pain in her right ankle or knee at this time. However, the patient states that she does feel that her ankle is ?not straight on my leg?, and she is concerned that it may never be straight again. Patient denies any numbness or tingling in the right lower extremity. No other acute complaints or concerns at this time. [facility] Medical History Clavicle fracture Anxiety Arthritis Tobacco use Anxiety Venous stasis dermatitis GERD (gastroesophageal reflux disease) White coat syndrome with high blood pressure but without hypertension Social History Household Members: None Housing: Apartment Do you presently have visiting nurse or other home services: Yes (5hrs/week) Alcohol intake: never Patient Tobacco Use Status: Current someday Tobacco user Tobacco use type: Cigarette Cigarette Packs Per Day: 1 Cigarettes Per Day: 10 Years Smoked: 20 yrs e-Cigarette/Vaping Use: Never Used Second Hand Smoke Exposure: No Advance Directives Date on File: 10/03/20 service: No Current occupational status: retired Cognitive needs: No Hearing needs: No Vision needs: No Physical Exam Extrem Other: On inspection, there is a visible deformity of both the medial and lateral malleoli of the right ankle There is also noted to be very edema about the right ankle No erythema noted Of note, there is an old, healing skin tear that was present at last visit, no evidence of infection Areas no evidence of infection Patient reports no palpation to the right ankle in the office today Patient denies any tenderness to palpation of the right knee Patient is able to flex and extend the digits of the right foot fully without difficulty Distal sensation intact Capillary refill brisk Results Reviewed Results Reviewed: X-rays obtained at the [facility] on 02/16/2024 and independently reviewed by me, Colten Santamaria PA-C, demonstrate displaced fractures of both the distal tibia and distal fibula, as well as minimally displaced fracture of the right tibial plateau, with evidence of interval bony healing. Assessment & Plan Assessment & Plan (1) Closed fracture of right distal fibula: Code(s): S82.831A - Other fracture of upper and lower end of right fibula, initial encounter for closed fracture Category: Medical (2) Closed fracture of right distal tibia: Code(s): S82.301A - Unspecified fracture of lower end of right tibia, initial encounter for closed fracture Category: Medical (3) Fracture of right tibial plateau: Code(s): S82.141A - Displaced bicondylar fracture of right tibia, initial encounter for closed fracture Category: Medical Plan 1. Right tib-fib fracture of ankle 2. Right tibial plateau fracture Date of injury 01/22/2024 Patient appears to be recovering moderately well postoperatively Patient is educated about the typical recovery course At this time, patient's ankle is able to be passively brought into normal anatomical position, but falls into the ?twisted? position that the patient discuss before while at rest, suggesting that it was not a mechanical issue Patient understands this Patient can attempt weight-bearing while in a tall boot at this time, but is instructed that she should not weight bear at all without the boot on Patient is also educated that she should begin physical therapy for gentle range of motion and strengthening of both the right ankle and right knee Patient and her daughter expressed understanding of this Patient will follow-up in 6 weeks with repeat x-rays for reassessment, sooner with any acute concerns Orders: Orders XR ankle RT min 3V Today M25.571 - Pain in right ankle and joints of right foot XR knee RT 3V Today M17.11 - Unilateral primary osteoarthritis, right knee PT Evaluation and Treatment Today S82.141A - Displaced bicondylar fracture of right tibia, initial encounter for closed fracture, S82.301A - Unspecified fracture of lower end of right tibia, initial encounter for closed fracture, S82.831A - Other fracture of upper and lower end of right fibula, initial encounter for closed fracture Coding Level of Care Code Global (25358) Diagnoses Closed fracture of right distal fibula S82.831A Closed fracture of right distal tibia S82.301A Fracture of right tibial plateau S82.141A
== END 2024-04-16 10:53 | disposition home or self-care (01) ==
PROVIDERS: PCP Nurse Practitioner Family
DX: S82.831A Other fracture of upper and lower end of right fibula, initial encounter for closed fracture (principal); S82.301A Unspecified fracture of lower end of right tibia, initial encounter for closed fracture; S82.141A Displaced bicondylar fracture of right tibia, initial encounter for closed fracture
CPT/HCPCS: 99024

== ENCOUNTER 2024-04-16 13:14 | Outpatient (REF) | payer MEDICARE, MEDICAID, SELFPAY | END 2024-04-16 13:15 | disposition home or self-care (01) | LOC: HO.HOSX 13:14 | DX: M25.571 Pain in right ankle and joints of right foot (principal); M17.11 Unilateral primary osteoarthritis, right knee; S82.831A Other fracture of upper and lower end of right fibula, initial encounter for closed fracture; S82.301A Unspecified fracture of lower end of right tibia, initial encounter for closed fracture; S82.141A Displaced bicondylar fracture of right tibia, initial encounter for closed fracture | CPT/HCPCS: 73562; 73610; 99212 ==

== ENCOUNTER 2024-05-28 09:31 | Outpatient (REF) | payer MEDICARE, MEDICAID, SELFPAY ==
--- NOTE | ~2024-05-28 | XR_ITS ---
CLINICAL HISTORY: M25.571 - Pain in right ankle and joints of right foot Three views of the right ankle. COMPARISON: None FINDINGS: Osteopenia. Chronic healed fracture deformity of the distal right tibia. Age-indeterminate fracture deformity of the distal right fibula. Ankle mortise appears symmetric on non stressed views. Talar dome appears intact. Visualized tarsal bones appear intact. IMPRESSION: 1. Age-indeterminate fracture deformity of the distal right fibula. Recommend comparison with prior imaging and clinical history. Overlying soft tissues appear unremarkable. 2. Chronic healed fracture deformity of the distal right tibia. 3. Osteopenia. This document has been electronically signed by: Art Sanabria MD on 05/31/2024 14:40:23
--- NOTE | ~2024-05-28 | XR_ITS ---
CLINICAL HISTORY: M17.11 - Unilateral primary osteoarthritis, right knee Two views of the right knee. COMPARISON: XR right ankle dated 05/28/24 at 11:13 EST FINDINGS: Osteopenia. Age-indeterminate lateral tibial plateau fracture deformity of the proximal right tibia. Distal fibula appears intact. Proximal fibula appears intact. Visualized portions of the patella appear intact. No definite suprapatellar joint effusion. IMPRESSION: 1. Age-indeterminate impacted lateral tibial plateau fracture. Recommend comparison with prior imaging and clinical history. 2. Osteopenia. This document has been electronically signed by: Art Sanabria MD on 05/31/2024 15:02:06
== END 2024-05-28 09:32 | disposition home or self-care (01) ==
LOC: HO.HOSX 09:31
DX: M25.571 Pain in right ankle and joints of right foot (principal); M17.11 Unilateral primary osteoarthritis, right knee; S82.141D Displaced bicondylar fracture of right tibia, subsequent encounter for closed fracture with routine healing; S82.301D Unspecified fracture of lower end of right tibia, subsequent encounter for closed fracture with routine healing; S82.831D Other fracture of upper and lower end of right fibula, subsequent encounter for closed fracture with routine healing
CPT/HCPCS: 73560; 73610; 99212

== ENCOUNTER 2024-05-28 11:08 | Outpatient (AMB) | payer MEDICARE, MEDICAID, SELFPAY ==
[2024-05-28 11:34] VITALS: BMI 32.4
--- NOTE | 2024-05-28 11:34 | MHC.OFFVIS ---
Vital Signs 05/28/24 11:34 Height 5 ft 8 in Weight 213 lb BMI 32.4 Intake Visit Reasons: OV: Right ankle tib/fib fx DOI 01/22/24 Intake Note: Ni is a 83 year old female who presents in the office today with her daughter for a follow up visit for her right distal tibia and fibula fractures s/p fall DOI: 01/22/2024. Xrays updated in office. States she completed her P.T yesterday and continues to have pain. 8/10 on a pain scale. Allergies ciprofloxacin [From CIPRO] Allergy (Intermediate, Verified 05/28/24 11:38) SHORTNESS OF BREATH metronidazole [From FLAGYL] Allergy (Intermediate, Verified 05/28/24 11:38) SHORTNESS OF BREATH aspirin [ASPIRIN] Allergy (Unknown, Verified 05/28/24 11:38) CAN'T TAKE BECAUSE OF BLEEDING, gi bleed, gi bleeding latex [LATEX] Allergy (Unknown, Verified 05/28/24 11:38) DIFFICULTY BREATHING tramadol [From ULTRAM] Allergy (Unknown, Verified 05/28/24 11:38) DIZZINESS Latex Allergy (Unknown, Uncoded 05/28/24 11:38) Unknown Latex Gloves Allergy (Unknown, Uncoded 05/28/24 11:38) rash HPI HPI OV: Right ankle tib/fib fx DOI 01/22/24: Details: Patient is an 83-year-old female who presents for 4 week follow-up evaluation status post right ankle tib-fib fracture and right tibial plateau fracture, date of injury 01/22/2024. Today, the patient reports that she has been weight-bearing with the boot on her right lower extremity since date of injury, but that she does experience pain when weight-bearing, but this resolves when she gets off of the right lower extremity. Denies any pain in the right knee. However, the patient states that she does feel that her ankle is ?not straight on my leg?, and she is concerned that it may never be straight again. Patient denies any numbness or tingling in the right lower extremity. No other acute complaints or concerns at this time. [facility] Medical History Clavicle fracture Anxiety Arthritis Tobacco use Anxiety Venous stasis dermatitis GERD (gastroesophageal reflux disease) White coat syndrome with high blood pressure but without hypertension Social History Household Members: None Housing: Apartment Do you presently have visiting nurse or other home services: Yes (5hrs/week) Alcohol intake: never Patient Tobacco Use Status: Current someday Tobacco user Tobacco use type: Cigarette Cigarette Packs Per Day: 1 Cigarettes Per Day: 10 Years Smoked: 20 yrs e-Cigarette/Vaping Use: Never Used Second Hand Smoke Exposure: No Advance Directives Date on File: 10/03/20 service: No Current occupational status: retired Cognitive needs: No Hearing needs: No Vision needs: No Review of Systems Const All systems reviewed & are unremarkable except as noted in HPI and below Physical Exam Vital Signs: BMI result Body Mass Index 32.4 Extrem Other: On inspection, there is a visible deformity of both the medial and lateral malleoli of the right ankle The patient's ankle is held in external rotation There is also noted to be no edema about the right ankle No erythema noted Of note, there is an old, healing skin tear that was present at last visit, no evidence of infection no evidence of infection Patient reports no palpation to the right ankle in the office today Patient denies any tenderness to palpation of the right knee Patient is able to flex and extend the digits of the right foot fully without difficulty Distal sensation intact Capillary refill brisk Results Reviewed Results Reviewed: X-rays obtained at the long term facility on 02/16/2024 and independently reviewed by me, Colten Santamaria PA-C, demonstrate displaced fractures of both the distal tibia and distal fibula, as well as minimally displaced fracture of the right tibial plateau, with evidence of interval bony healing. Assessment & Plan Assessment & Plan (1) Closed fracture of right distal fibula: Code(s): S82.831A - Other fracture of upper and lower end of right fibula, initial encounter for closed fracture Category: Medical (2) Closed fracture of right distal tibia: Code(s): S82.301A - Unspecified fracture of lower end of right tibia, initial encounter for closed fracture Category: Medical (3) Fracture of right tibial plateau: Code(s): S82.141A - Displaced bicondylar fracture of right tibia, initial encounter for closed fracture Category: Medical Plan 1. Right tib-fib fracture of ankle 2. Right tibial plateau fracture Date of injury 01/22/2024 Patient appears to be recovering moderately well postoperatively Patient is educated about the typical recovery course At this time, patient is educated that the deformity in her right ankle may be what is causing her ankle to be rotated in his fashion, and that this may just be how her ankle looks for rest of the light Patient understands this Patient can continue weight-bearing while in a tall boot at this time, but is instructed that she should not weight bear at all without the boot on Patient is also educated that she should continue physical therapy for gentle range of motion and strengthening of both the right ankle and right knee Patient and her daughter expressed understanding of this Patient will follow-up in 6-8 weeks with repeat x-rays for reassessment, sooner with any acute concerns Orders: Orders XR ankle RT min 3V Today M25.571 - Pain in right ankle and joints of right foot PT Evaluation and Treatment Today S82.141A - Displaced bicondylar fracture of right tibia, initial encounter for closed fracture, S82.301A - Unspecified fracture of lower end of right tibia, initial encounter for closed fracture, S82.831A - Other fracture of upper and lower end of right fibula, initial encounter for closed fracture Coding Level of Care Code Est Pt Level 3 (05381) Diagnoses Closed fracture of right distal fibula S82.831A Closed fracture of right distal tibia S82.301A Fracture of right tibial plateau S82.141A
== END 2024-05-28 11:59 | disposition home or self-care (01) ==
PROVIDERS: PCP Nurse Practitioner Family
DX: S82.831A Other fracture of upper and lower end of right fibula, initial encounter for closed fracture (principal); S82.301A Unspecified fracture of lower end of right tibia, initial encounter for closed fracture; S82.141A Displaced bicondylar fracture of right tibia, initial encounter for closed fracture
CPT/HCPCS: 99213

== ENCOUNTER 2024-07-23 08:04 | Outpatient (REF) | payer MEDICARE, MEDICAID, SELFPAY | END 2024-07-23 08:05 | disposition home or self-care (01) | LOC: HO.HOSX 08:04 | DX: Z13.89 Encounter for screening for other disorder (principal) ==

== ENCOUNTER 2024-08-02 08:34 | Outpatient (REF) | payer MEDICARE, MEDICAID, SELFPAY ==
--- NOTE | ~2024-08-02 | XR_ITS ---
EXAMINATION: XR KNEE, RIGHT CLINICAL INFORMATION: M17.11 - Unilateral primary osteoarthritis, right knee COMPARISON: May 28, 2024. TECHNIQUE: Two views of the right knee. FINDINGS: Joint space narrowing involving mostly the lateral compartment. Superior compression deformity of the lateral tibial plateau with associated sclerosis. Osteopenia versus osteoporosis. No subcutaneous emphysema. No suprapatellar bursa joint effusion. XR/XR knee RT 3V IMPRESSION: Bicompartmental osteoarthrosis involving mostly the lateral compartment with subacute to old fracture lateral tibial plateau. Electronically signed by: Yakov Coronado MD 08/03/2024 09:08 AM [facility]
--- NOTE | ~2024-08-02 | XR_ITS ---
EXAMINATION: XR ANKLE, RIGHT CLINICAL INFORMATION: M25.571 - Pain in right ankle and joints of right foot COMPARISON: May 28, 2024. TECHNIQUE: AP, lateral, and mortise views of the right ankle. FINDINGS: Old traumatic deformities distal diaphysis metaphysis of the tibia and fibula with volar angulation of the distal fragment. Osteopenia versus osteoporosis. No acute cortical disruption. No lytic or blastic lesions. No subcutaneous emphysema. XR/XR ankle RT min 3V IMPRESSION: Old traumatic deformity distal diaphysis metaphysis of the right tibia and fibula. 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 Electronically signed by: Yakov Coronado MD 08/03/2024 09:11 AM [facility]
== END 2024-08-02 08:35 | disposition home or self-care (01) ==
LOC: HO.HOSX 08:34
DX: M17.11 Unilateral primary osteoarthritis, right knee (principal); S82.831A Other fracture of upper and lower end of right fibula, initial encounter for closed fracture; S82.301A Unspecified fracture of lower end of right tibia, initial encounter for closed fracture; S82.141A Displaced bicondylar fracture of right tibia, initial encounter for closed fracture
CPT/HCPCS: 73562; 73610; 99212

== ENCOUNTER 2024-08-02 10:53 | Outpatient (AMB) | payer MEDICARE, MEDICAID, SELFPAY ==
[2024-08-02 11:07] VITALS: BMI 32.4
--- NOTE | 2024-08-02 11:07 | A.OFFVIS_ITS ---
Vital Signs 08/02/24 11:07 Height 5 ft 8 in Weight 213 lb BMI 32.4 Intake Visit Reasons: OV: Right ankle tib/fib fx DOI 01/22/24 Intake Note: Ni is a 83 year old female who presents in the office today with her daughter Natividad for a follow up visit for her right distal tibia and fibula fractures s/p fall DOI: 01/22/2024. Patient reports only weight bearing with her tall boot. Currently states no pain just hoping to D/C boot today. Allergies ciprofloxacin [From CIPRO] Allergy (Intermediate, Verified 08/02/24 11:24) SHORTNESS OF BREATH metronidazole [From FLAGYL] Allergy (Intermediate, Verified 08/02/24 11:24) SHORTNESS OF BREATH aspirin [ASPIRIN] Allergy (Unknown, Verified 08/02/24 11:24) CAN'T TAKE BECAUSE OF BLEEDING, gi bleed, gi bleeding latex [LATEX] Allergy (Unknown, Verified 08/02/24 11:24) DIFFICULTY BREATHING tramadol [From ULTRAM] Allergy (Unknown, Verified 08/02/24 11:24) DIZZINESS Latex Allergy (Unknown, Uncoded 08/02/24 11:24) Unknown Latex Gloves Allergy (Unknown, Uncoded 08/02/24 11:24) rash HPI HPI OV: Right ankle tib/fib fx DOI 01/22/24: Details: Ni is a 83 year old female who presents in the office today with her daughter Natividad for a follow up visit for her right distal tibia and fibula fract ures s/p fall DOI: 01/22/2024. Patient reports only weight bearing with her tall boot. Patient's daughter reports that she has had minimal physical therapy since previous evaluation. Currently states no pain just hoping to D/C boot today. [facility] Medical History Clavicle fracture Anxiety Arthritis Tobacco use Anxiety Venous stasis dermatitis GERD (gastroesophageal reflux disease) White coat syndrome with high blood pressure but without hypertension Social History Household Members: None Housing: Apartment Do you presently have visiting nurse or other home services: Yes (5hrs/week) Alcohol intake: never Patient Tobacco Use Status: Current someday Tobacco user Tobacco use type: Cigarette Cigarette Packs Per Day: 1 Cigarettes Per Day: 10 Years Smoked: 20 yrs e-Cigarette/Vaping Use: Never Used Second Hand Smoke Exposure: No Advance Directives Date on File: 10/03/20 service: No Current occupational status: retired Cognitive needs: No Hearing needs: No Vision needs: No Review of Systems Const All systems reviewed & are unremarkable except as noted in HPI and below Physical Exam Vital Signs: BMI result Body Mass Index 32.4 Extrem Other: On inspection, there is a visible deformity of both the medial and lateral malleoli of the right ankle The patient's ankle is held in external rotation There is also noted to be no edema about the right ankle No erythema noted Of note, there is an old, healing skin tear that was present at last visit, no evidence of infection no evidence of infection Patient reports no palpation to the right ankle in the office today Patient denies any tenderness to palpation of the right knee Patient is able to flex and extend the digits of the right foot fully without difficulty Distal sensation intact Capillary refill brisk Results Reviewed Results Reviewed: [facility] at [facility] on 02/16/2024 and independently reviewed by me, Colten Santamaria PA-C, demonstrate displaced fractures of both the distal tibia and distal fibula, as well as minimally displaced fracture of the right tibial plateau, with evidence of interval bony healing. Assessment & Plan Assessment & Plan (1) Closed fracture of right distal fibula: Code(s): S82.831A - Other fracture of upper and lower end of right fibula, initial encounter for closed fracture Category: Medical (2) Closed fracture of right distal tibia: Code(s): S82.301A - Unspecified fracture of lower end of right tibia, initial encounter for closed fracture Category: Medical (3) Fracture of right tibial plateau: Code(s): S82.141A - Displaced bicondylar fracture of right tibia, initial encounter for closed fracture Category: Medical Plan 1. Right tib-fib fracture of ankle 2. Right tibial plateau fracture Date of injury 01/22/2024 Patient appears to be recovering moderately well postoperatively Patient is educated about the typical recovery course At this time, patient is educated that the deformity in her right ankle is likely caused by the significant valgus deformity in her right knee Patient understands this Patient is educated that she no longer needs to be in the boot while attempting to weightbear Patient is also educated that she should continue physical therapy for gentle range of motion and strengthening of both the right ankle and right knee Patient was provided with repeat order at this time, as per the patient's daughter the facility she has living at has not been giving her much therapy Patient and her daughter expressed understanding of this Patient will follow-up in 8-12 weeks with repeat x-rays for reassessment, sooner with any acute concerns Orders: Orders XR ankle RT min 3V Today M25.571 - Pain in right ankle and joints of right foot XR knee RT 3V Today M17.11 - Unilateral primary osteoarthritis, right knee Coding Level of Care Code Est Pt Level 3 (61928) Diagnoses Closed fracture of right distal fibula S82.831A Closed fracture of right distal tibia S82.301A Fracture of right tibial plateau S82.141A
== END 2024-08-02 11:55 | disposition home or self-care (01) ==
DX: S82.831A Other fracture of upper and lower end of right fibula, initial encounter for closed fracture (principal); S82.301A Unspecified fracture of lower end of right tibia, initial encounter for closed fracture; S82.141A Displaced bicondylar fracture of right tibia, initial encounter for closed fracture
CPT/HCPCS: 99213

== ENCOUNTER → 2024-08-02 11:00 | Outpatient (BNV) | payer MEDICARE, MEDICAID, SELFPAY | PROVIDERS: Visit Provider Radiology Diagnostic Radiology | DX: M81.0 Age-related osteoporosis without current pathological fracture (principal); M17.11 Unilateral primary osteoarthritis, right knee | CPT/HCPCS: 73562; 73610 ==

== ENCOUNTER 2024-09-27 10:32 | Outpatient (REF) | payer MEDICARE, MEDICAID, SELFPAY ==
--- NOTE | ~2024-09-27 | XR_ITS ---
CLINICAL HISTORY: M25.571 - Pain in right ankle and joints of right foot Right ankle 2 views Comparison: 05/28/2024 Findings: No acute fracture or dislocation identified. Old fracture deformities again noted. There has been no change in alignment. Diffuse decreased bone density noted. Impression: No acute bony abnormality This document has been electronically signed by: Onel Jama MD on 09/29/2024 19:16:37
== END 2024-09-27 10:33 | disposition home or self-care (01) ==
LOC: HO.HOSX 10:32
DX: M25.571 Pain in right ankle and joints of right foot (principal); Z87.81 Personal history of (healed) traumatic fracture
CPT/HCPCS: 73610; 99212

== ENCOUNTER 2024-09-27 11:09 | Outpatient (AMB) | payer MEDICARE, MEDICAID, SELFPAY ==
--- NOTE | 2024-09-27 11:10 | MHC.OFFVIS ---
Vital Signs 09/27/24 11:11 Height 5 ft 8 in Weight 213 lb BMI 32.4 Intake Visit Reasons: OV: Right ankle tib/fib fx DOI 01/22/24 Intake Note: Ni is a 83 year old female who presents in the office today with her daughter Natividad for a follow up visit for her right distal tibia and fibula fractures s/p fall DOI: 01/22/2024. Patient daughter reports she is doing well, she has no concerns today. Allergies ciprofloxacin [From CIPRO] Allergy (Intermediate, Verified 09/27/24 11:32) SHORTNESS OF BREATH metronidazole [From FLAGYL] Allergy (Intermediate, Verified 09/27/24 11:32) SHORTNESS OF BREATH aspirin [ASPIRIN] Allergy (Unknown, Verified 09/27/24 11:32) CAN'T TAKE BECAUSE OF BLEEDING, gi bleed, gi bleeding latex [LATEX] Allergy (Unknown, Verified 09/27/24 11:32) DIFFICULTY BREATHING tramadol [From ULTRAM] Allergy (Unknown, Verified 09/27/24 11:32) DIZZINESS Latex Allergy (Unknown, Uncoded 09/27/24 11:32) Unknown Latex Gloves Allergy (Unknown, Uncoded 09/27/24 11:32) rash HPI HPI OV: Right ankle tib/fib fx DOI 01/22/24: Details: Ni is a 83 year old female who presents in the office today with her daughter Natividad for a follow up visit for her right distal tibia and fibula fractures s/p fall DOI: 01/22/2024. Patient daughter reports she is doing well, she has no concerns today. Patient's daughter Natividad expresses that she feels that the rehab and nursing home facility is not walking the patient as much as they should, and she feels this is impacting her functional capacity negatively. [facility] Medical History Clavicle fracture Anxiety Arthritis Tobacco use Anxiety Venous stasis dermatitis GERD (gastroesophageal reflux disease) White coat syndrome with high blood pressure but without hypertension Social History Household Members: None Housing: Apartment Do you presently have visiting nurse or other home services: Yes (5hrs/week) Alcohol intake: never Patient Tobacco Use Status: Current someday Tobacco user Tobacco use type: Cigarette Cigarette Packs Per Day: 1 Cigarettes Per Day: 10 Years Smoked: 20 yrs e-Cigarette/Vaping Use: Never Used Second Hand Smoke Exposure: No Advance Directives Date on File: 10/03/20 service: No Current occupational status: retired Cognitive needs: No Hearing needs: No Vision needs: No Review of Systems Const All systems reviewed & are unremarkable except as noted in HPI and below Physical Exam Vital Signs: BMI result Body Mass Index 32.4 Extrem Other: On inspection, there is a visible deformity of both the medial and lateral malleoli of the right ankle The patient's ankle is held in external rotation There is also noted to be no edema about the right ankle No erythema noted Of note, there is an old, healing skin tear that was present at last visit, no evidence of infection no evidence of infection Patient reports no palpation to the right ankle in the office today Patient denies any tenderness to palpation of the right knee Patient is able to flex and extend the digits of the right foot fully without difficulty Distal sensation intact Capillary refill brisk Results Reviewed Results Reviewed: X-rays obtained at the nursing [facility] on 02/16/2024 and independently reviewed by me, Colten Santamaria PA-C, demonstrate displaced fractures of both the distal tibia and distal fibula, as well as minimally displaced fracture of the right tibial plateau, fractures healed Assessment & Plan Assessment & Plan (1) Closed fracture of right distal fibula: Code(s): S82.831A - Other fracture of upper and lower end of right fibula, initial encounter for closed fracture Category: Medical (2) Closed fracture of right distal tibia: Code(s): S82.301A - Unspecified fracture of lower end of right tibia, initial encounter for closed fracture Category: Medical (3) Fracture of right tibial plateau: Code(s): S82.141A - Displaced bicondylar fracture of right tibia, initial encounter for closed fracture Category: Medical Plan 1. Right tib-fib fracture of ankle 2. Right tibial plateau fracture Date of injury 01/22/2024 Patient appears to be recovering moderately well postoperatively Patient is educated about the typical recovery course At this time, patient is educated that the deformity in her right ankle is likely caused by the significant valgus deformity in her right knee Patient understands this Patient is educated that she no longer needs to be in the boot while attempting to weightbear Patient is also educated that she should continue physical therapy for gentle range of motion and strengthening of both the right ankle and right knee Patient was provided with repeat order at this time, as per the patient's daughter the facility she has living at has not been giving her much therapy Patient and her daughter expressed understanding of this Patient is recommended for 3 month follow-up, but declines Patient will follow-up as needed with any acute concerns Orders: Orders XR ankle RT min 3V Today M25.571 - Pain in right ankle and joints of right foot Coding Level of Care Code Est Pt Level 3 (15165) Diagnoses Closed fracture of right distal fibula S82.831A Closed fracture of right distal tibia S82.301A Fracture of right tibial plateau S82.141A
[2024-09-27 11:11] VITALS: BMI 32.4
== END 2024-09-27 11:55 | disposition home or self-care (01) ==
LOC: HO.HOS 11:10
DX: S82.831D Other fracture of upper and lower end of right fibula, subsequent encounter for closed fracture with routine healing (principal); S82.301D Unspecified fracture of lower end of right tibia, subsequent encounter for closed fracture with routine healing; S82.141D Displaced bicondylar fracture of right tibia, subsequent encounter for closed fracture with routine healing
CPT/HCPCS: 99213

== ENCOUNTER → 2024-09-27 11:12 | Outpatient (BNV) | payer MEDICARE, MEDICAID, SELFPAY | PROVIDERS: Visit Provider Radiology Diagnostic Radiology | DX: M25.571 Pain in right ankle and joints of right foot (principal) | CPT/HCPCS: 73610 ==